=== PATIENT | male | born 1940 | race Asian ===

== ENCOUNTER → 2016-11-13 | Outpatient (CLI) | payer MEDICARE, OTHER ==
[2014-09-30 11:05] VITALS: BP 156/72
[~2016-11-13] MED LIST: ALLO100T PO; BYSTOLIC5 MG PO; INSU100V13 SQ
--- NOTE | 2016-11-13 15:44 | RAD ---
INDICATION: Polycystic kidney disease COMPARISON: CT from February 2009 TECHNIQUE: Grayscale and color ultrasound images obtained of the bilateral kidneys and bladder. FINDINGS: Right Kidney: 10.3 cm. No hydronephrosis. Left Kidney: 10.9 cm. No hydronephrosis. The bilateral kidneys have an echogenic appearance with multiple cysts identified. These measure up to about 25 mm on the right with some internal echoes seen within. Multiple left renal cysts seen as well measuring up to about 20 of mm with a septation suspected in one of the larger cysts. These appear increased when compared to 2008. Bladder: Largely decompressed. IMPRESSION: Multiple cysts of the bilateral kidneys with a couple of them demonstrating probable septation. Would obtain a follow-up ultrasound in 12 months to ensure no growth given the presence of septation and some of them have some low-level internal echoes. These internal echoes could be artifactual in nature but a complex component can have this appearance.
== END | disposition home or self-care (01) ==
LOC: US 14:22
PROVIDERS: ATTEND Internal Medicine Nephrology
DX: Q61.3 Polycystic kidney, unspecified (principal)
CPT/HCPCS: 76770

== ENCOUNTER 2016-11-15 13:23 | Inpatient (IN) | payer MEDICARE ==
[~2016-11-15] VITALS: Ht 167.6 cm; Wt 73.0 kg
[2016-11-15] VITALS (10 sets, daily range): BP systolic 119–164; BP diastolic 62–92
--- NOTE | 2016-11-15 13:40 | PHYS DOC ---
Past Medical History Past Medical History: CVA, High Cholesterol, Hypertension, Other Additional Past Medical Histor: TRIPLE A,R SIDED PARESIS,GOUT Past Surgical History: No Surgical History Alcohol Use: None Drug Use: None Adult General Chief Complaint Chief Complaint: ABDOMINAL PAIN HPI HPI Patient is a 75 year old MALE who presents with abdominal pain, nausea and vomiting. Pt's had bloody emesis and also c/o diffuse abdominal pain. History initially limited as pt speaks Iza and no manager pulmonary immediately available. Per EMS, they saw evidence of blood in vomit and pt was hypotensive and bradycardic upon their arrival. IV fluids initiated and pt's HR and BP improved. Pt reports he takes no medications and has no medical problems. Nurse was able to get manager pulmonary on the phone and pt then denied any vomiting/ abd pain. refuted and said he had been vomiting. Review of Systems Review of Systems Unable to obtain with language barrier other than marked in HPI Current Medications Current Medications Current Medications Medications (Trade) Dose Ordered Sig/Ruben Start Time Stop Time Status Last Admin Dose Admin Pantoprazole Sodium (Protonix Vial) 80 mg 1X ONCE 11/15/16 15:30 11/15/16 15:31 DC 11/15/16 15:02 80 MG Pantoprazole Sodium 80 mg/ Sodium Chloride 100 ml @ 10 mls/hr Q10H 11/15/16 16:00 11/15/16 15:02 10 MLS/HR Sodium Chloride 1,000 ml @ 1,000 mls/hr 1X ONCE 11/15/16 14:00 11/15/16 14:59 DC 11/15/16 14:08 1,000 MLS/HR Allergies Allergies Allergies Coded Allergies Type Severity Reaction Last Updated Verified No Known Drug Allergies 09/30/14 No Physical Exam Physical Exam Constitutional: Well developed, well nourished, slightly dishevelled HENT: Normocephalic, atraumatic, dry MMM, dried brown/red around mouth and on toes Eyes: PERRLA, EOMI, conjunctiva normal, no discharge. [] Neck: Normal range of motion, no tenderness, supple, no stridor. [] Cardiovascular:Heart rate regular with regular rhythm, no murmur [] Lungs & Thorax: Bilateral breath sounds clear to auscultation , no wheeze or crackles Abdomen: Bowel sounds normal, soft, no tenderness, no masses, no pulsatile masses. [] Skin: Warm, dry, no erythema, no rash. [] Back: No tenderness, no CVA tenderness. [] Extremities: No tenderness, no cyanosis, no clubbing, ROM intact, no edema. [] Neurologic: Alert but not oriented, normal motor function, normal sensory function, no focal deficits noted. [] Current Patient Data Vital Signs Vital Signs Date Time Temp Pulse Resp B/P (MAP) Pulse Ox O2 Delivery O2 Flow Rate FiO2 11/15/16 15:43 91 138/62 (87) 98 Room Air 11/15/16 13:30 97.7 18 97.7 Lab Values Laboratory Tests Test 11/15/16 14:30 11/15/16 14:55 11/15/16 15:45 POC Hemoglobin 6.8 g/dL (14-18) L POC Hematocrit 20 % (37-52) L POC Sodium 141 mmol/L (135-145) POC Potassium 5.1 mmol/L (3.5-5.0) H POC Chloride 112 mmol/L (98-110) H POC Total CO2 21 mmol/L (23-32) L Anion Gap 14 mmol/L (6-14) 11 (6-14) POC Blood Urea Nitrogen 32 mg/dL (8-26) H POC Creatinine 2.6 mg/dL (0.5-1.4) H Glucose Level 130 mg/dL (70-99) H 117 mg/dL (70-99) H POC Ionized Calcium (Blas) 0.93 mmol/L (1.13-1.32) L White Blood Count 13.7 x10^3/uL (4.0-11.0) H Red Blood Count 2.12 x10^6/uL (4.30-5.70) L Hemoglobin 6.5 g/dL (13.0-17.5) *L Hematocrit 19.9 % (39.0-53.0) *L Mean Corpuscular Volume 94 fL (79-100) Mean Corpuscular Hemoglobin 31 pg (25-35) Mean Corpuscular Hemoglobin Concent 33 g/dL (31-37) Red Cell Distribution Width 15.7 % (11.5-14.5) H Platelet Count 259 x10^3/uL (140-400) Neutrophils (%) (Auto) 83 % (31-73) H Lymphocytes (%) (Auto) 10 % (24-48) L Monocytes (%) (Auto) 7 % (0-9) Eosinophils (%) (Auto) 0 % (0-3) Basophils (%) (Auto) 0 % (0-3) Neutrophils # (Auto) 11.4 x10^3uL (1.8-7.7) H Lymphocytes # (Auto) 1.3 x10^3/uL (1.0-4.8) Monocytes # (Auto) 0.9 x10^3/uL (0.0-1.1) Eosinophils # (Auto) 0.1 x10^3/uL (0.0-0.7) Basophils # (Auto) 0.0 x10^3/uL (0.0-0.2) Prothrombin Time 14.8 SEC (11.7-14.0) H Prothrombin Time INR 1.2 (0.8-1.1) H Sodium Level 145 mmol/L (136-145) Potassium Level 5.2 mmol/L (3.5-5.1) H Chloride Level 111 mmol/L (98-107) H Carbon Dioxide Level 23 mmol/L (21-32) Blood Urea Nitrogen 37 mg/dL (8-26) H Creatinine 2.6 mg/dL (0.7-1.3) H Estimated GFR (Cockcroft-Gault) 24.2 BUN/Creatinine Ratio 14 (6-20) Lactic Acid Level 3.2 mmol/L (0.4-2.0) H Calcium Level 7.8 mg/dL (8.5-10.1) L Total Bilirubin 0.2 mg/dL (0.2-1.0) Aspartate Amino Transferase (AST) 26 U/L (15-37) Alanine Aminotransferase (ALT) 17 U/L (16-63) Alkaline Phosphatase 73 U/L (46-116) Total Protein 5.3 g/dL (6.4-8.2) L Albumin 2.3 g/dL (3.4-5.0) L Albumin/Globulin Ratio 0.8 (1.0-1.7) L Urine Collection Type Void Urine Color Yellow Urine Clarity Clear Urine pH 5.5 Urine Specific [place] 1.015 Urine Protein 100 mg/dL (NEG-TRACE) Urine Glucose (UA) Negative mg/dL (NEG) Urine Ketones (Stick) Negative mg/dL (NEG) Urine Blood Negative (NEG) Urine Nitrite Negative (NEG) Urine Bilirubin Negative (NEG) Urine Urobilinogen Dipstick 0.2 mg/dL (0.2 mg/dL) Urine Leukocyte Esterase Moderate (NEG) Urine RBC Rare /HPF (0-2) Urine WBC 20-40 /HPF (0-4) Urine Squamous Epithelial Cells Mod /LPF Urine Amorphous Sediment Present /HPF Urine Bacteria Mod /HPF (0-FEW) Urine Hyaline Casts Moderate /HPF Urine Mucus Slight /LPF Laboratory Tests 11/15/16 14:55 Laboratory Tests 11/15/16 14:30 11/15/16 14:55 EKG EKG 91 bpm, sinus, R axis, QTC 514, QRS [address] elevation or depression, T waves upright. Interpreted by me Radiology/Procedures Radiology/Procedures [] Course & Med Decision Making Course & Med Decision Making Pertinent Labs and Imaging studies reviewed. (See chart for details) pt given IV fluids, BP remained stable. Hgb low, IV protonix bolus and drip ordered through the pharmacist. I talked with Dr. Delacruz, (GI) who came to see pt. 2 units prbc ordered, pt accepted to ICU under Dr. De Anda. CT head negative. Total critical care time >35 minutes Dragon Disclaimer Dragon Disclaimer This electronic medical record was generated, in whole or in part, using a voice recognition dictation system. Departure Departure Impression: Primary Impression: GI bleed Additional Impressions: Anemia Metabolic encephalopathy Disposition: ADMITTED INPATIENT Condition: CRITICAL Referrals: NO PCP (PCP) Problem Qualifiers YAN RAMIREZ MD Nov 15, 2016 13:40
[2016-11-15] MEDS ORDERED: IV NORMAL SALINE 1000ML BAG 1,000 ML IV ONE (14:00)
--- NOTE | 2016-11-15 14:24 | EKG ---
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
[2016-11-15 14:35] LABS: POTASSIUM ISTAT 5.1 mmol/L (3.5-5.0)
[2016-11-15] MEDS: PANTOPRAZOLE SODIUM IV 80 MG in IV NORMAL SALINE 100ML 100 ML IV SCH ×2 (15:02→19:48)
[2016-11-15 15:28] LABS: BASO % 0 % (0-3); EOS % 0 % (0-3); LYMPH # 1.3 x10^3/uL (1.0-4.8); LYMPH % 10 % (24-48); MEAN CORPUSCULAR HEMOGLOBIN 31 pg (25-35); MEAN CORPUSCULAR HGB CONC 33 g/dL (31-37); MEAN CORPUSCULAR VOLUME 94 fL (79-100); MONO % 7 % (0-9); NEUT % 83 % (31-73); PLATELET COUNT 259 x10^3/uL (140-400); RED BLOOD COUNT 2.12 x10^6/uL (4.30-5.70); RED CELL DISTRIBUTION WIDTH 15.7 % (11.5-14.5); WHITE BLOOD COUNT 13.7 x10^3/uL (4.0-11.0)
[2016-11-15 15:30] LABS: HEMATOCRIT 19.9 % (39.0-53.0); HEMOGLOBIN 6.5 g/dL (13.0-17.5)
[2016-11-15] MEDS ORDERED: PANTOPRAZOLE IV PUSH 40 MG VIAL. IVP ONE (15:30)
[2016-11-15 15:38] LABS: CALCIUM 7.8 mg/dL (8.5-10.1); CREATININE 2.6 mg/dL (0.7-1.3); GFR 24.2; POTASSIUM 5.2 mmol/L (3.5-5.1)
[2016-11-15 15:43] LABS: ALBUMIN 2.3 g/dL (3.4-5.0); ALBUMIN/GLOBULIN RATIO 0.8 (1.0-1.7); TOTAL BILIRUBIN 0.2 mg/dL (0.2-1.0); TOTAL PROTEIN 5.3 g/dL (6.4-8.2)
[2016-11-15 15:47] LABS: INR 1.2 (0.8-1.1); PROTHROMBIN TIME PATIENT 14.8 SEC (11.7-14.0)
[2016-11-15 15:59] LABS: BILIRUBIN,URINE NEGATIVE (NEG); GLUCOSE,URINE NEGATIVE (NEG); NITRITE,URINE NEGATIVE (NEG); PH,URINE 5.5; PROTEIN,URINE 100 mg/dL (NEG-TRACE); UROBILINOGEN,URINE 0.2 mg/dL (0.2 mg/dL)
--- NOTE | 2016-11-15 16:12 | PDOC2 ---
GI CONSULT Reason For Consult: GI Bleed HPI: HPI: 75 y/o male who speaks Iza, case discussed w/ Dr. Pinto in the ER. Arrived w/ family member, count team clerk phone used. Has had some abdominal pain and been vomiting, noted w/ dark crusty material around mouth and a small amount on foot, possibly having dark stools as well. Some hypotension prior to arrival in ED. Unclear PMH, medications used. Found to have Hgb 6.5 w/ normal indices and elevated RDW. (For comparison, Hgb was 11.2 in 2015.) Plt normal, INR 1.2. BUN 37, Cr 2.6. Started on PPI drip w/ transfusion ordered. Currently confused w/o family present. Dr. De Anda attempted use of count team clerk phone; however, the patient is unable to provide meaningful information and thinks the year is 1927. PMH: PMH: per chart - CVA, HLD, HTN, AAA, gout, renal cysts, CKD FH: Family History: No pertinent hx Social History: Smoke: No ALCOHOL: none ROS: Basically unobtainable. Vitals: Vitals: Vital Signs Date Time Temp Pulse Resp B/P (MAP) Pulse Ox O2 Delivery O2 Flow Rate FiO2 11/15/16 13:58 95 116/59 (78) 98 Room Air 11/15/16 13:30 97.7 18 97.7 Labs: Labs: Laboratory Tests Test 11/15/16 14:30 11/15/16 14:55 Bedside Hemoglobin 6.8 g/dL (14-18) Bedside Hematocrit 20 % (37-52) Bedside Sodium 141 mmol/L (135-145) Bedside Potassium 5.1 mmol/L (3.5-5.0) Bedside Chloride 112 mmol/L (98-110) Bedside Total CO2 21 mmol/L (23-32) Anion Gap 14 mmol/L (6-14) 11 (6-14) Bedside Blood Urea Nitrogen 32 mg/dL (8-26) Bedside Creatinine 2.6 mg/dL (0.5-1.4) Glucose Level 130 mg/dL (70-99) 117 mg/dL (70-99) Bedside Ionized Calcium (Blas) 0.93 mmol/L (1.13-1.32) White Blood Count 13.7 x10^3/uL (4.0-11.0) Red Blood Count 2.12 x10^6/uL (4.30-5.70) Hemoglobin 6.5 g/dL (13.0-17.5) Hematocrit 19.9 % (39.0-53.0) Mean Corpuscular Volume 94 fL (79-100) Mean Corpuscular Hemoglobin 31 pg (25-35) Mean Corpuscular Hemoglobin Concent 33 g/dL (31-37) Red Cell Distribution Width 15.7 % (11.5-14.5) Platelet Count 259 x10^3/uL (140-400) Neutrophils (%) (Auto) 83 % (31-73) Lymphocytes (%) (Auto) 10 % (24-48) Monocytes (%) (Auto) 7 % (0-9) Eosinophils (%) (Auto) 0 % (0-3) Basophils (%) (Auto) 0 % (0-3) Neutrophils # (Auto) 11.4 x10^3uL (1.8-7.7) Lymphocytes # (Auto) 1.3 x10^3/uL (1.0-4.8) Monocytes # (Auto) 0.9 x10^3/uL (0.0-1.1) Eosinophils # (Auto) 0.1 x10^3/uL (0.0-0.7) Basophils # (Auto) 0.0 x10^3/uL (0.0-0.2) Prothrombin Time 14.8 SEC (11.7-14.0) Prothromb Time International Ratio 1.2 (0.8-1.1) Sodium Level 145 mmol/L (136-145) Potassium Level 5.2 mmol/L (3.5-5.1) Chloride Level 111 mmol/L (98-107) Carbon Dioxide Level 23 mmol/L (21-32) Blood Urea Nitrogen 37 mg/dL (8-26) Creatinine 2.6 mg/dL (0.7-1.3) Estimated GFR (Cockcroft-Gault) 24.2 BUN/Creatinine Ratio 14 (6-20) Lactic Acid Level 3.2 mmol/L (0.4-2.0) Calcium Level 7.8 mg/dL (8.5-10.1) Total Bilirubin 0.2 mg/dL (0.2-1.0) Aspartate Amino Transf (AST/SGOT) 26 U/L (15-37) Alanine Aminotransferase (ALT/SGPT) 17 U/L (16-63) Alkaline Phosphatase 73 U/L (46-116) Total Protein 5.3 g/dL (6.4-8.2) Albumin 2.3 g/dL (3.4-5.0) Albumin/Globulin Ratio 0.8 (1.0-1.7) Allergies: Coded Allergies: No Known Drug Allergies (Unverified , 09/30/14) Medications: Current Medications Medications (Trade) Dose Ordered Sig/Ruben Route PRN Reason Start Time Stop Time Status Last Admin Dose Admin Sodium Chloride 1,000 ml @ 1,000 mls/hr 1X ONCE IV 11/15/16 14:00 11/15/16 14:59 DC 11/15/16 14:08 Pantoprazole Sodium 80 mg/ Sodium Chloride 100 ml @ 10 mls/hr Q10H IV 11/15/16 16:00 11/15/16 15:02 Pantoprazole Sodium (Protonix Vial) 80 mg 1X ONCE IVP 11/15/16 15:30 11/15/16 15:31 DC 11/15/16 15:02 Imaging: Imaging: - PE: GEN: NAD HEENT: Atraumatic, PERRL LUNGS: clear HEART: RRR ABD: NABS, S/ND/NT EXTREMITY: No edema SKIN: dried/dark material around mouth NEURO/PSYCH: awake/alert A/P: A/P: Abd pain, vomiting -coffee-ground emesis, melena? -doesn't appear too uncomfortable in ER -Hgb 6.5 compared to 11.2 (last lab available for review 2014) -BUN 37 w/ elevated Cr Anemia Confusion -- Difficult history w/ confusion and language barrier. Agree w/ IV PPI and transfusion. Will keep NPO w/ ice chips and tentatively plan for EGD tomorrow afternoon r/o upper GI source; hopefully family will return to provide further information. SUSAN MCNEIL Nov 15, 2016 16:12
--- NOTE | 2016-11-15 16:16 | PDOC1 ---
History and Physical Date of Admission Date of Admission DATE: 11/15/16 TIME: 16:11 Identification/Chief Complaint Chief Complaint vomited blood Problems: Source Source: Caregiver, Chart review, Patient History of Present Illness History of Present Illness Mr. Becerra is a 75 year old admit to ICU with abdominal pain, nausea and vomiting. Pt is Hmong, not able to speak zimbabwean. History by and lang interpreter phone. brought by EMS for vomting blood and abd pain. He is confused when I spoke to him by the blue phone, and he was confused to the date and year, and then denied vomtiing blood. Red blood was reported in prior emesis from EMS transient hypotension on arrival now is improved Past Medical History Cardiovascular: No pertinent hx Hepatobiliary: No pertinent hx Psych: No pertinent hx Family History Family History: Family History Unknown Social History Smoke: No ALCOHOL: none Current Medications Current Medications Current Medications Sodium Chloride 1,000 ml @ 1,000 mls/hr 1X ONCE IV Last administered on 14:08; Start 11/15/16 at 14:00; Stop 11/15/16 at 14:59; Status DC Pantoprazole Sodium 80 mg/ Sodium Chloride 100 ml @ 10 mls/hr Q10H IV Last administered on 11/15/16 15:02; Start 11/15/16 at 16:00 Pantoprazole Sodium (Protonix Vial) 80 mg 1X ONCE IVP Last administered on 15:02; Start 11/15/16 at 15:30; Stop 11/15/16 at 15:31; Status DC Allergies Allergies: Coded Allergies: No Known Drug Allergies (Unverified , 09/30/14) ROS Review of System unable to complete, pt confused, not zimbabwean speaking, appears to have felt well until vomited blood today Physical Exam General: Alert, Cooperative, mild distress, Other (not oriented) HEENT: Atraumatic, PERRLA Lungs: Clear to auscultation Heart: S1S2, RRR Abdomen: Normal bowel sounds, Soft (mild TTP) Rectal Exam: not examined Extremities: No clubbing, No cyanosis, No edema Skin: No breakdown Neuro: Normal speech, Normal tone Psych/Mental Status: Mood NL, Other (confused) Vitals Vitals Vital Signs Date Time Temp Pulse Resp B/P (MAP) Pulse Ox O2 Delivery O2 Flow Rate FiO2 11/15/16 15:43 91 138/62 (87) 98 Room Air 11/15/16 13:30 97.7 18 97.7 Labs Labs Laboratory Tests Test 11/15/16 14:30 11/15/16 14:55 Bedside Hemoglobin 6.8 g/dL (14-18) Bedside Hematocrit 20 % (37-52) Bedside Sodium 141 mmol/L (135-145) Bedside Potassium 5.1 mmol/L (3.5-5.0) Bedside Chloride 112 mmol/L (98-110) Bedside Total CO2 21 mmol/L (23-32) Anion Gap 14 mmol/L (6-14) 11 (6-14) Bedside Blood Urea Nitrogen 32 mg/dL (8-26) Bedside Creatinine 2.6 mg/dL (0.5-1.4) Glucose Level 130 mg/dL (70-99) 117 mg/dL (70-99) Bedside Ionized Calcium (Blas) 0.93 mmol/L (1.13-1.32) White Blood Count 13.7 x10^3/uL (4.0-11.0) Red Blood Count 2.12 x10^6/uL (4.30-5.70) Hemoglobin 6.5 g/dL (13.0-17.5) Hematocrit 19.9 % (39.0-53.0) Mean Corpuscular Volume 94 fL (79-100) Mean Corpuscular Hemoglobin 31 pg (25-35) Mean Corpuscular Hemoglobin Concent 33 g/dL (31-37) Red Cell Distribution Width 15.7 % (11.5-14.5) Platelet Count 259 x10^3/uL (140-400) Neutrophils (%) (Auto) 83 % (31-73) Lymphocytes (%) (Auto) 10 % (24-48) Monocytes (%) (Auto) 7 % (0-9) Eosinophils (%) (Auto) 0 % (0-3) Basophils (%) (Auto) 0 % (0-3) Neutrophils # (Auto) 11.4 x10^3uL (1.8-7.7) Lymphocytes # (Auto) 1.3 x10^3/uL (1.0-4.8) Monocytes # (Auto) 0.9 x10^3/uL (0.0-1.1) Eosinophils # (Auto) 0.1 x10^3/uL (0.0-0.7) Basophils # (Auto) 0.0 x10^3/uL (0.0-0.2) Prothrombin Time 14.8 SEC (11.7-14.0) Prothromb Time International Ratio 1.2 (0.8-1.1) Sodium Level 145 mmol/L (136-145) Potassium Level 5.2 mmol/L (3.5-5.1) Chloride Level 111 mmol/L (98-107) Carbon Dioxide Level 23 mmol/L (21-32) Blood Urea Nitrogen 37 mg/dL (8-26) Creatinine 2.6 mg/dL (0.7-1.3) Estimated GFR (Cockcroft-Gault) 24.2 BUN/Creatinine Ratio 14 (6-20) Lactic Acid Level 3.2 mmol/L (0.4-2.0) Calcium Level 7.8 mg/dL (8.5-10.1) Total Bilirubin 0.2 mg/dL (0.2-1.0) Aspartate Amino Transf (AST/SGOT) 26 U/L (15-37) Alanine Aminotransferase (ALT/SGPT) 17 U/L (16-63) Alkaline Phosphatase 73 U/L (46-116) Total Protein 5.3 g/dL (6.4-8.2) Albumin 2.3 g/dL (3.4-5.0) Albumin/Globulin Ratio 0.8 (1.0-1.7) Laboratory Tests Test 11/15/16 14:30 11/15/16 14:55 Bedside Hemoglobin 6.8 g/dL (14-18) Bedside Hematocrit 20 % (37-52) Bedside Sodium 141 mmol/L (135-145) Bedside Potassium 5.1 mmol/L (3.5-5.0) Bedside Chloride 112 mmol/L (98-110) Bedside Total CO2 21 mmol/L (23-32) Anion Gap 14 mmol/L (6-14) 11 (6-14) Bedside Blood Urea Nitrogen 32 mg/dL (8-26) Bedside Creatinine 2.6 mg/dL (0.5-1.4) Glucose Level 130 mg/dL (70-99) 117 mg/dL (70-99) Bedside Ionized Calcium (Blas) 0.93 mmol/L (1.13-1.32) White Blood Count 13.7 x10^3/uL (4.0-11.0) Red Blood Count 2.12 x10^6/uL (4.30-5.70) Hemoglobin 6.5 g/dL (13.0-17.5) Hematocrit 19.9 % (39.0-53.0) Mean Corpuscular Volume 94 fL (79-100) Mean Corpuscular Hemoglobin 31 pg (25-35) Mean Corpuscular Hemoglobin Concent 33 g/dL (31-37) Red Cell Distribution Width 15.7 % (11.5-14.5) Platelet Count 259 x10^3/uL (140-400) Neutrophils (%) (Auto) 83 % (31-73) Lymphocytes (%) (Auto) 10 % (24-48) Monocytes (%) (Auto) 7 % (0-9) Eosinophils (%) (Auto) 0 % (0-3) Basophils (%) (Auto) 0 % (0-3) Neutrophils # (Auto) 11.4 x10^3uL (1.8-7.7) Lymphocytes # (Auto) 1.3 x10^3/uL (1.0-4.8) Monocytes # (Auto) 0.9 x10^3/uL (0.0-1.1) Eosinophils # (Auto) 0.1 x10^3/uL (0.0-0.7) Basophils # (Auto) 0.0 x10^3/uL (0.0-0.2) Prothrombin Time 14.8 SEC (11.7-14.0) Prothromb Time International Ratio 1.2 (0.8-1.1) Sodium Level 145 mmol/L (136-145) Potassium Level 5.2 mmol/L (3.5-5.1) Chloride Level 111 mmol/L (98-107) Carbon Dioxide Level 23 mmol/L (21-32) Blood Urea Nitrogen 37 mg/dL (8-26) Creatinine 2.6 mg/dL (0.7-1.3) Estimated GFR (Cockcroft-Gault) 24.2 BUN/Creatinine Ratio 14 (6-20) Lactic Acid Level 3.2 mmol/L (0.4-2.0) Calcium Level 7.8 mg/dL (8.5-10.1) Total Bilirubin 0.2 mg/dL (0.2-1.0) Aspartate Amino Transf (AST/SGOT) 26 U/L (15-37) Alanine Aminotransferase (ALT/SGPT) 17 U/L (16-63) Alkaline Phosphatase 73 U/L (46-116) Total Protein 5.3 g/dL (6.4-8.2) Albumin 2.3 g/dL (3.4-5.0) Albumin/Globulin Ratio 0.8 (1.0-1.7) VTE Prophylaxis Ordered VTE Prophylaxis Devices: Yes VTE Pharmacological Prophylaxi: Contraindicated Assessment/Plan Assessment/Plan Hemetemesis acute blood loss anemia, GI bleed, Upper IV PPI, consult GI admi tto ICU 2 u PRBC now, then recheck encephalopathy, NOS, check CT head, consider metabolic, acute renal failure, Cr from 1.3 to 2.6 will check UA, give IV fluid, consult renal admit to ICU, < 30 min TERESA NAVARRO MD Nov 15, 2016 16:16
[2016-11-15 16:21] LABS: BACTERIA,URINE MOD /HPF (0-FEW); RBC,URINE RARE /HPF (0-2); SQUAMOUS EPITHELIAL CELL,UR MOD /LPF; WBC,URINE 20-40 /HPF (0-4)
--- NOTE | 2016-11-15 16:40 | RAD ---
EXAM: CT head without contrast. HISTORY: Altered mental status. TECHNIQUE: Computed tomography of the head was performed without intravenous contrast. COMPARISON: None. FINDINGS: There is no intracranial hemorrhage. Hypoattenuation within the periventricular white matter indicates moderate to severe chronic small vessel ischemic change. Prominence of the lateral ventricles and hemispheric sulci indicate moderate atrophy. The visualized paranasal sinuses appear clear. The orbits are unremarkable. The temporal bones are unremarkable. The calvarium reveals no suspicious lesions. There are atherosclerotic calcifications of the internal carotid and vertebral arteries. IMPRESSION: 1. No acute intracranial findings. 2. Moderate atrophy and moderate to severe chronic small vessel ischemic white matter change. *One or more of the following individualized dose reduction techniques were utilized for this examination: 1. Automated exposure control. 2. Adjustment of the mA and/or kV according to patient size. 3. Use of iterative reconstruction technique.
[2016-11-15] MEDS: IV NORMAL SALINE 1000ML BAG 1,000 ML IV SCH (17:45)
[2016-11-15] MEDS ORDERED: INSU100V13 SQ (19:22)
[2016-11-15] MEDS ORDERED: BYSTOLIC5 MG PO (19:22)
[2016-11-15] MEDS ORDERED: ALLO100T PO (19:22)
[2016-11-16] VITALS (23 sets, daily range): BP systolic 121–198; BP diastolic 57–98
--- NOTE | 2016-11-16 02:05 | ACF ---
Admission Forms Criteria GASTROINTESTINAL BLEEDING Clinical Indications for Inpatient Care (Place 'X' for any and all applicable criteria): Ongoing inpatient care may be indicated for gastrointestinal bleeding with ANY ONE of the following (4)(20)(21)(22)(23)(24): [X]I. Active bleeding (eg, fresh voluminous blood in emesis or nasogastric aspirate, or per rectum) [ ]II. Hemodynamic instability [ ]III. Anticoagulation therapy or coagulopathy ((eg, advanced liver disease, irreversible anticoagulation) [ ]IV. Ischemic colitis (22) [ ]V. Endoscopy showing arterial bleeding, adherent clot, nonbleeding visible vessel, varices, flat red spots, ulcer size greater than 2 cm, or portal hypertensive gastropathy [ ]. High-risk low platelet count [ ]VII. Anemia requiring inpatient care as indicated by ANY ONE of the following a)[ ] Cognitive impairment b)[ ] Syncope c)[ ] Heart failure d)[ ] Chest pain e)[ ] Dyspnea f)[ ] Other findings suggesting inadequate perfusion (eg, peripheral or myocardial ischemia, end organ dysfunction) [ ]VIII. High-risk low platelet count [ ]IX. Suspected variceal cause of bleeding as indicated by ANY ONE of the following(27)(28): a)[ ] Known varices b)[ ] Hepatomegaly or splenomegaly c)[ ] Ascites d)[ ] Jaundice or scleral icterus e)[ ] History of liver disease (eg, cirrhosis) f)[ ] Physical findings of portal hypertension (eg, caput medusa) g)[ ] Comorbid disorder indicating risk for portal vein thrombosis (eg , abdominal surgery, sepsis, shock, exchange transfusion, prior umbilical vein catheterization) Extended stay may be needed until ALL of the following are present(20)(38)(47): [ ]a) Hemodynamic stability [ ]b) No evidence of active bleeding (eg, stable Hematocrit) [ ]c) Platelet count, prothrombin time, and partial thromboplastin time acceptable for next level of care [ ]d) Surgical or other acute intervention not needed [ ]e) Oral hydration and diet tolerated The original [employer] content created by Valentian Espinoza has been revised. The portions of the content which have been revised are identified through the use of italic text or in bold, and Valentina Espinoza has neither reviewed nor approved the modified material. All other unmodified content is copyright [facility]. Please see references footnoted in the original [facility] edition 2016 Admission Criteria Met?: Yes MOISÉS ESPINOZA Nov 16, 2016 02:05
[2016-11-16 05:11] LABS: BASO % 1 % (0-3); EOS % 2 % (0-3); HEMATOCRIT 24.4 % (39.0-53.0); HEMOGLOBIN 8.2 g/dL (13.0-17.5); LYMPH # 1.9 x10^3/uL (1.0-4.8); LYMPH % 20 % (24-48); MEAN CORPUSCULAR HEMOGLOBIN 30 pg (25-35); MEAN CORPUSCULAR HGB CONC 34 g/dL (31-37); MEAN CORPUSCULAR VOLUME 90 fL (79-100); MONO % 9 % (0-9); NEUT % 69 % (31-73); PLATELET COUNT 189 x10^3/uL (140-400); RED BLOOD COUNT 2.72 x10^6/uL (4.30-5.70); RED CELL DISTRIBUTION WIDTH 15.3 % (11.5-14.5); WHITE BLOOD COUNT 9.5 x10^3/uL (4.0-11.0)
[2016-11-16] MEDS: PANTOPRAZOLE SODIUM IV 80 MG in IV NORMAL SALINE 100ML 100 ML IV SCH (05:20)
[2016-11-16 05:45] LABS: CALCIUM 7.7 mg/dL (8.5-10.1); CREATININE 2.6 mg/dL (0.7-1.3); GFR 24.2
[2016-11-16 05:47] LABS: POTASSIUM 5.5 mmol/L (3.5-5.1)
--- NOTE | 2016-11-16 09:29 | PDOC ---
PROGRESS NOTES Chief Complaint Chief Complaint Chief complaint: Upper GI bleeding Assessment and plan Upper GI bleeding: On IV Protonix, status post 2 units of PRBC hemoglobin improved, gastroenterology consulted planning for EGD today, monitor hemoglobin closely Acute kidney injury with chronic kidney disease: Continue mild IV hydration, monitor BP and and creatinine and urine output Encephalopathy acute: CT head negative, improving. Acute blood loss anemia due to upper GI bleeding Hyperkalemia: Order calcium gluconate monitor History of Present Illness History of Present Illness NO BLEEDING TODAY NO FEVER NO CHEST PAIN AT BEDSIDE Vitals Vitals Vital Signs Date Time Temp Pulse Resp B/P (MAP) Pulse Ox O2 Delivery O2 Flow Rate FiO2 11/16/16 07:00 60 16 158/69 (98) 98 Room Air 11/16/16 04:00 99.5 99.5 Physical Exam General: Alert, Oriented X3, Cooperative, mild distress, Other (not oriented) Heart: Normal S1, Normal S2 Lungs: Clear Abdomen: Normal bowel sounds, Soft (mild TTP) Extremities: No clubbing, No cyanosis, No edema Skin: No breakdown Labs LABS Laboratory Tests Test 11/15/16 14:30 11/15/16 14:55 11/15/16 15:45 11/15/16 21:07 Bedside Hemoglobin 6.8 g/dL (14-18) Bedside Hematocrit 20 % (37-52) Bedside Sodium 141 mmol/L (135-145) Bedside Potassium 5.1 mmol/L (3.5-5.0) Bedside Chloride 112 mmol/L (98-110) Bedside Total CO2 21 mmol/L (23-32) Anion Gap 14 mmol/L (6-14) 11 (6-14) Bedside Blood Urea Nitrogen 32 mg/dL (8-26) Bedside Creatinine 2.6 mg/dL (0.5-1.4) Glucose Level 130 mg/dL (70-99) 117 mg/dL (70-99) Bedside Ionized Calcium (Blas) 0.93 mmol/L (1.13-1.32) White Blood Count 13.7 x10^3/uL (4.0-11.0) Red Blood Count 2.12 x10^6/uL (4.30-5.70) Hemoglobin 6.5 g/dL (13.0-17.5) Hematocrit 19.9 % (39.0-53.0) Mean Corpuscular Volume 94 fL (79-100) Mean Corpuscular Hemoglobin 31 pg (25-35) Mean Corpuscular Hemoglobin Concent 33 g/dL (31-37) Red Cell Distribution Width 15.7 % (11.5-14.5) Platelet Count 259 x10^3/uL (140-400) Neutrophils (%) (Auto) 83 % (31-73) Lymphocytes (%) (Auto) 10 % (24-48) Monocytes (%) (Auto) 7 % (0-9) Eosinophils (%) (Auto) 0 % (0-3) Basophils (%) (Auto) 0 % (0-3) Neutrophils # (Auto) 11.4 x10^3uL (1.8-7.7) Lymphocytes # (Auto) 1.3 x10^3/uL (1.0-4.8) Monocytes # (Auto) 0.9 x10^3/uL (0.0-1.1) Eosinophils # (Auto) 0.1 x10^3/uL (0.0-0.7) Basophils # (Auto) 0.0 x10^3/uL (0.0-0.2) Prothrombin Time 14.8 SEC (11.7-14.0) Prothromb Time International Ratio 1.2 (0.8-1.1) Sodium Level 145 mmol/L (136-145) Potassium Level 5.2 mmol/L (3.5-5.1) Chloride Level 111 mmol/L (98-107) Carbon Dioxide Level 23 mmol/L (21-32) Blood Urea Nitrogen 37 mg/dL (8-26) Creatinine 2.6 mg/dL (0.7-1.3) Estimated GFR (Cockcroft-Gault) 24.2 BUN/Creatinine Ratio 14 (6-20) Lactic Acid Level 3.2 mmol/L (0.4-2.0) Calcium Level 7.8 mg/dL (8.5-10.1) Total Bilirubin 0.2 mg/dL (0.2-1.0) Aspartate Amino Transf (AST/SGOT) 26 U/L (15-37) Alanine Aminotransferase (ALT/SGPT) 17 U/L (16-63) Alkaline Phosphatase 73 U/L (46-116) Total Protein 5.3 g/dL (6.4-8.2) Albumin 2.3 g/dL (3.4-5.0) Albumin/Globulin Ratio 0.8 (1.0-1.7) Urine Collection Type Void Urine Color Yellow Urine Clarity Clear Urine pH 5.5 Urine Specific Temple 1.015 Urine Protein 100 mg/dL (NEG-TRACE) Urine Glucose (UA) Negative mg/dL (NEG) Urine Ketones (Stick) Negative mg/dL (NEG) Urine Blood Negative (NEG) Urine Nitrite Negative (NEG) Urine Bilirubin Negative (NEG) Urine Urobilinogen Dipstick 0.2 mg/dL (0.2 mg/dL) Urine Leukocyte Esterase Moderate (NEG) Urine RBC Rare /HPF (0-2) Urine WBC 20-40 /HPF (0-4) Urine Squamous Epithelial Cells Mod /LPF Urine Amorphous Sediment Present /HPF Urine Bacteria Mod /HPF (0-FEW) Urine Hyaline Casts Moderate /HPF Urine Mucus Slight /LPF Glucose (Fingerstick) 114 mg/dL (70-99) Test 11/15/16 21:15 11/16/16 04:40 Lactic Acid Level 1.5 mmol/L (0.4-2.0) White Blood Count 9.5 x10^3/uL (4.0-11.0) Red Blood Count 2.72 x10^6/uL (4.30-5.70) Hemoglobin 8.2 g/dL (13.0-17.5) Hematocrit 24.4 % (39.0-53.0) Mean Corpuscular Volume 90 fL (79-100) Mean Corpuscular Hemoglobin 30 pg (25-35) Mean Corpuscular Hemoglobin Concent 34 g/dL (31-37) Red Cell Distribution Width 15.3 % (11.5-14.5) Platelet Count 189 x10^3/uL (140-400) Neutrophils (%) (Auto) 69 % (31-73) Lymphocytes (%) (Auto) 20 % (24-48) Monocytes (%) (Auto) 9 % (0-9) Eosinophils (%) (Auto) 2 % (0-3) Basophils (%) (Auto) 1 % (0-3) Neutrophils # (Auto) 6.6 x10^3uL (1.8-7.7) Lymphocytes # (Auto) 1.9 x10^3/uL (1.0-4.8) Monocytes # (Auto) 0.8 x10^3/uL (0.0-1.1) Eosinophils # (Auto) 0.2 x10^3/uL (0.0-0.7) Basophils # (Auto) 0.0 x10^3/uL (0.0-0.2) Sodium Level 145 mmol/L (136-145) Potassium Level 5.5 mmol/L (3.5-5.1) Chloride Level 113 mmol/L (98-107) Carbon Dioxide Level 20 mmol/L (21-32) Anion Gap 12 (6-14) Blood Urea Nitrogen 49 mg/dL (8-26) Creatinine 2.6 mg/dL (0.7-1.3) Estimated GFR (Cockcroft-Gault) 24.2 Glucose Level 90 mg/dL (70-99) Calcium Level 7.7 mg/dL (8.5-10.1) Assessment and Plan Assessmemt and Plan Problems Medical Problems: (1) Anemia Status: Acute (2) GI bleed Status: Acute (3) Metabolic encephalopathy Status: Acute Problems: Comment Review of Relevant I have reviewed the following items selin (where applicable) has been applied. Labs Laboratory Tests Test 11/15/16 14:30 11/15/16 14:55 11/15/16 15:45 11/15/16 21:07 Bedside Hemoglobin 6.8 g/dL (14-18) Bedside Hematocrit 20 % (37-52) Bedside Sodium 141 mmol/L (135-145) Bedside Potassium 5.1 mmol/L (3.5-5.0) Bedside Chloride 112 mmol/L (98-110) Bedside Total CO2 21 mmol/L (23-32) Anion Gap 14 mmol/L (6-14) 11 (6-14) Bedside Blood Urea Nitrogen 32 mg/dL (8-26) Bedside Creatinine 2.6 mg/dL (0.5-1.4) Glucose Level 130 mg/dL (70-99) 117 mg/dL (70-99) Bedside Ionized Calcium (Blas) 0.93 mmol/L (1.13-1.32) White Blood Count 13.7 x10^3/uL (4.0-11.0) Red Blood Count 2.12 x10^6/uL (4.30-5.70) Hemoglobin 6.5 g/dL (13.0-17.5) Hematocrit 19.9 % (39.0-53.0) Mean Corpuscular Volume 94 fL (79-100) Mean Corpuscular Hemoglobin 31 pg (25-35) Mean Corpuscular Hemoglobin Concent 33 g/dL (31-37) Red Cell Distribution Width 15.7 % (11.5-14.5) Platelet Count 259 x10^3/uL (140-400) Neutrophils (%) (Auto) 83 % (31-73) Lymphocytes (%) (Auto) 10 % (24-48) Monocytes (%) (Auto) 7 % (0-9) Eosinophils (%) (Auto) 0 % (0-3) Basophils (%) (Auto) 0 % (0-3) Neutrophils # (Auto) 11.4 x10^3uL (1.8-7.7) Lymphocytes # (Auto) 1.3 x10^3/uL (1.0-4.8) Monocytes # (Auto) 0.9 x10^3/uL (0.0-1.1) Eosinophils # (Auto) 0.1 x10^3/uL (0.0-0.7) Basophils # (Auto) 0.0 x10^3/uL (0.0-0.2) Prothrombin Time 14.8 SEC (11.7-14.0) Prothromb Time International Ratio 1.2 (0.8-1.1) Sodium Level 145 mmol/L (136-145) Potassium Level 5.2 mmol/L (3.5-5.1) Chloride Level 111 mmol/L (98-107) Carbon Dioxide Level 23 mmol/L (21-32) Blood Urea Nitrogen 37 mg/dL (8-26) Creatinine 2.6 mg/dL (0.7-1.3) Estimated GFR (Cockcroft-Gault) 24.2 BUN/Creatinine Ratio 14 (6-20) Lactic Acid Level 3.2 mmol/L (0.4-2.0) Calcium Level 7.8 mg/dL (8.5-10.1) Total Bilirubin 0.2 mg/dL (0.2-1.0) Aspartate Amino Transf (AST/SGOT) 26 U/L (15-37) Alanine Aminotransferase (ALT/SGPT) 17 U/L (16-63) Alkaline Phosphatase 73 U/L (46-116) Total Protein 5.3 g/dL (6.4-8.2) Albumin 2.3 g/dL (3.4-5.0) Albumin/Globulin Ratio 0.8 (1.0-1.7) Urine Collection Type Void Urine Color Yellow Urine Clarity Clear Urine pH 5.5 Urine Specific Temple 1.015 Urine Protein 100 mg/dL (NEG-TRACE) Urine Glucose (UA) Negative mg/dL (NEG) Urine Ketones (Stick) Negative mg/dL (NEG) Urine Blood Negative (NEG) Urine Nitrite Negative (NEG) Urine Bilirubin Negative (NEG) Urine Urobilinogen Dipstick 0.2 mg/dL (0.2 mg/dL) Urine Leukocyte Esterase Moderate (NEG) Urine RBC Rare /HPF (0-2) Urine WBC 20-40 /HPF (0-4) Urine Squamous Epithelial Cells Mod /LPF Urine Amorphous Sediment Present /HPF Urine Bacteria Mod /HPF (0-FEW) Urine Hyaline Casts Moderate /HPF Urine Mucus Slight /LPF Glucose (Fingerstick) 114 mg/dL (70-99) Test 11/15/16 21:15 11/16/16 04:40 Lactic Acid Level 1.5 mmol/L (0.4-2.0) White Blood Count 9.5 x10^3/uL (4.0-11.0) Red Blood Count 2.72 x10^6/uL (4.30-5.70) Hemoglobin 8.2 g/dL (13.0-17.5) Hematocrit 24.4 % (39.0-53.0) Mean Corpuscular Volume 90 fL (79-100) Mean Corpuscular Hemoglobin 30 pg (25-35) Mean Corpuscular Hemoglobin Concent 34 g/dL (31-37) Red Cell Distribution Width 15.3 % (11.5-14.5) Platelet Count 189 x10^3/uL (140-400) Neutrophils (%) (Auto) 69 % (31-73) Lymphocytes (%) (Auto) 20 % (24-48) Monocytes (%) (Auto) 9 % (0-9) Eosinophils (%) (Auto) 2 % (0-3) Basophils (%) (Auto) 1 % (0-3) Neutrophils # (Auto) 6.6 x10^3uL (1.8-7.7) Lymphocytes # (Auto) 1.9 x10^3/uL (1.0-4.8) Monocytes # (Auto) 0.8 x10^3/uL (0.0-1.1) Eosinophils # (Auto) 0.2 x10^3/uL (0.0-0.7) Basophils # (Auto) 0.0 x10^3/uL (0.0-0.2) Sodium Level 145 mmol/L (136-145) Potassium Level 5.5 mmol/L (3.5-5.1) Chloride Level 113 mmol/L (98-107) Carbon Dioxide Level 20 mmol/L (21-32) Anion Gap 12 (6-14) Blood Urea Nitrogen 49 mg/dL (8-26) Creatinine 2.6 mg/dL (0.7-1.3) Estimated GFR (Cockcroft-Gault) 24.2 Glucose Level 90 mg/dL (70-99) Calcium Level 7.7 mg/dL (8.5-10.1) Laboratory Tests Test 11/15/16 14:30 11/15/16 14:55 11/15/16 15:45 11/15/16 21:07 Bedside Hemoglobin 6.8 g/dL (14-18) Bedside Hematocrit 20 % (37-52) Bedside Sodium 141 mmol/L (135-145) Bedside Potassium 5.1 mmol/L (3.5-5.0) Bedside Chloride 112 mmol/L (98-110) Bedside Total CO2 21 mmol/L (23-32) Anion Gap 14 mmol/L (6-14) 11 (6-14) Bedside Blood Urea Nitrogen 32 mg/dL (8-26) Bedside Creatinine 2.6 mg/dL (0.5-1.4) Glucose Level 130 mg/dL (70-99) 117 mg/dL (70-99) Bedside Ionized Calcium (Blas) 0.93 mmol/L (1.13-1.32) White Blood Count 13.7 x10^3/uL (4.0-11.0) Red Blood Count 2.12 x10^6/uL (4.30-5.70) Hemoglobin 6.5 g/dL (13.0-17.5) Hematocrit 19.9 % (39.0-53.0) Mean Corpuscular Volume 94 fL (79-100) Mean Corpuscular Hemoglobin 31 pg (25-35) Mean Corpuscular Hemoglobin Concent 33 g/dL (31-37) Red Cell Distribution Width 15.7 % (11.5-14.5) Platelet Count 259 x10^3/uL (140-400) Neutrophils (%) (Auto) 83 % (31-73) Lymphocytes (%) (Auto) 10 % (24-48) Monocytes (%) (Auto) 7 % (0-9) Eosinophils (%) (Auto) 0 % (0-3) Basophils (%) (Auto) 0 % (0-3) Neutrophils # (Auto) 11.4 x10^3uL (1.8-7.7) Lymphocytes # (Auto) 1.3 x10^3/uL (1.0-4.8) Monocytes # (Auto) 0.9 x10^3/uL (0.0-1.1) Eosinophils # (Auto) 0.1 x10^3/uL (0.0-0.7) Basophils # (Auto) 0.0 x10^3/uL (0.0-0.2) Prothrombin Time 14.8 SEC (11.7-14.0) Prothromb Time International Ratio 1.2 (0.8-1.1) Sodium Level 145 mmol/L (136-145) Potassium Level 5.2 mmol/L (3.5-5.1) Chloride Level 111 mmol/L (98-107) Carbon Dioxide Level 23 mmol/L (21-32) Blood Urea Nitrogen 37 mg/dL (8-26) Creatinine 2.6 mg/dL (0.7-1.3) Estimated GFR (Cockcroft-Gault) 24.2 BUN/Creatinine Ratio 14 (6-20) Lactic Acid Level 3.2 mmol/L (0.4-2.0) Calcium Level 7.8 mg/dL (8.5-10.1) Total Bilirubin 0.2 mg/dL (0.2-1.0) Aspartate Amino Transf (AST/SGOT) 26 U/L (15-37) Alanine Aminotransferase (ALT/SGPT) 17 U/L (16-63) Alkaline Phosphatase 73 U/L (46-116) Total Protein 5.3 g/dL (6.4-8.2) Albumin 2.3 g/dL (3.4-5.0) Albumin/Globulin Ratio 0.8 (1.0-1.7) Urine Collection Type Void Urine Color Yellow Urine Clarity Clear Urine pH 5.5 Urine Specific Temple 1.015 Urine Protein 100 mg/dL (NEG-TRACE) Urine Glucose (UA) Negative mg/dL (NEG) Urine Ketones (Stick) Negative mg/dL (NEG) Urine Blood Negative (NEG) Urine Nitrite Negative (NEG) Urine Bilirubin Negative (NEG) Urine Urobilinogen Dipstick 0.2 mg/dL (0.2 mg/dL) Urine Leukocyte Esterase Moderate (NEG) Urine RBC Rare /HPF (0-2) Urine WBC 20-40 /HPF (0-4) Urine Squamous Epithelial Cells Mod /LPF Urine Amorphous Sediment Present /HPF Urine Bacteria Mod /HPF (0-FEW) Urine Hyaline Casts Moderate /HPF Urine Mucus Slight /LPF Glucose (Fingerstick) 114 mg/dL (70-99) Test 11/15/16 21:15 11/16/16 04:40 Lactic Acid Level 1.5 mmol/L (0.4-2.0) White Blood Count 9.5 x10^3/uL (4.0-11.0) Red Blood Count 2.72 x10^6/uL (4.30-5.70) Hemoglobin 8.2 g/dL (13.0-17.5) Hematocrit 24.4 % (39.0-53.0) Mean Corpuscular Volume 90 fL (79-100) Mean Corpuscular Hemoglobin 30 pg (25-35) Mean Corpuscular Hemoglobin Concent 34 g/dL (31-37) Red Cell Distribution Width 15.3 % (11.5-14.5) Platelet Count 189 x10^3/uL (140-400) Neutrophils (%) (Auto) 69 % (31-73) Lymphocytes (%) (Auto) 20 % (24-48) Monocytes (%) (Auto) 9 % (0-9) Eosinophils (%) (Auto) 2 % (0-3) Basophils (%) (Auto) 1 % (0-3) Neutrophils # (Auto) 6.6 x10^3uL (1.8-7.7) Lymphocytes # (Auto) 1.9 x10^3/uL (1.0-4.8) Monocytes # (Auto) 0.8 x10^3/uL (0.0-1.1) Eosinophils # (Auto) 0.2 x10^3/uL (0.0-0.7) Basophils # (Auto) 0.0 x10^3/uL (0.0-0.2) Sodium Level 145 mmol/L (136-145) Potassium Level 5.5 mmol/L (3.5-5.1) Chloride Level 113 mmol/L (98-107) Carbon Dioxide Level 20 mmol/L (21-32) Anion Gap 12 (6-14) Blood Urea Nitrogen 49 mg/dL (8-26) Creatinine 2.6 mg/dL (0.7-1.3) Estimated GFR (Cockcroft-Gault) 24.2 Glucose Level 90 mg/dL (70-99) Calcium Level 7.7 mg/dL (8.5-10.1) Medications Current Medications Sodium Chloride 1,000 ml @ 1,000 mls/hr 1X ONCE IV Last administered on 14:08; Start 11/15/16 at 14:00; Stop 11/15/16 at 14:59; Status DC Pantoprazole Sodium 80 mg/ Sodium Chloride 100 ml @ 10 mls/hr Q10H IV Last administered on 11/16/16 05:20; Start 11/15/16 at 16:00 Pantoprazole Sodium (Protonix Vial) 80 mg 1X ONCE IVP Last administered on 15:02; Start 11/15/16 at 15:30; Stop 11/15/16 at 15:31; Status DC Sodium Chloride 1,000 ml @ 100 mls/hr Q10H IV Last administered on 11/15/16 17:45; Start 11/15/16 at 16:15 Ceftriaxone Sodium 1 gm/ Sodium Chloride 50 ml @ 100 mls/hr Q24H IV Last administered on 11/15/16 22:16; Start 11/15/16 at 21:00 Active Scripts Active Reported Levemir (Insulin Detemir) 100 Unit/1 Ml Vial 10 Unit SQ QHS Allopurinol 100 Mg Tablet 100 Mg PO DAILY Bystolic (Nebivolol) 5 Mg Tablet 5 Mg PO BID Vitals/I & O Vital Sign - Last 24 Hours 11/15/16 11/15/16 11/15/16 11/15/16 13:30 13:58 15:28 15:43 Temp 97.7 97.7 Pulse 88 95 89 91 Resp 18 B/P (MAP) 113/65 (81) 116/59 (78) 131/79 (96) 138/62 (87) Pulse Ox 100 98 98 98 O2 Delivery Room Air Room Air Room Air Room Air 11/15/16 11/15/16 11/15/16 11/15/16 16:13 16:43 17:00 17:00 Temp 97.8 97.8 Pulse 93 91 83 Resp 16 B/P (MAP) 126/57 (80) 120/60 (80) 119/62 (81) Pulse Ox 98 97 99 O2 Delivery Room Air Room Air Room Air Room Air 11/15/16 11/15/16 11/15/16 11/15/16 17:45 18:00 18:00 19:00 Temp 97.8 98.2 98.2 98.5 97.8 98.2 98.2 98.5 Pulse 86 84 82 80 Resp 26 26 26 22 B/P (MAP) 132/92 129/87 132/92 (105) 137/66 (89) Pulse Ox 97 99 O2 Delivery Room Air Room Air 11/15/16 11/15/16 11/15/16 11/15/16 19:40 20:00 20:00 20:00 Temp 98.7 99.1 99.1 98.7 99.1 99.1 Pulse 77 74 78 Resp 24 20 20 B/P (MAP) 141/70 164/67 (99) 164/67 Pulse Ox 99 O2 Delivery Room Air Room Air 11/15/16 11/15/16 11/15/16 11/15/16 21:00 22:00 23:00 23:59 Temp 99.9 99.6 99.9 99.9 99.6 99.9 Pulse 74 73 71 Resp 18 22 20 B/P (MAP) 137/64 (88) 158/69 (98) 151/74 (99) Pulse Ox 99 99 99 O2 Delivery Room Air Room Air Room Air Room Air 11/15/16 11/16/16 11/16/1621/17 23:59 01:00 02:00 03:00 Pulse 71 74 69 70 Resp 18 18 18 20 B/P (MAP) 154/68 (96) 173/73 (106) 141/71 (94) 154/57 (89) Pulse Ox 98 97 97 98 O2 Delivery Room Air Room Air Room Air Room Air 11/16/16 11/16/16 11/16/16 11/16/16 04:00 04:00 05:00 06:00 Temp 99.5 99.5 Pulse 66 60 60 Resp 16 16 16 B/P (MAP) 121/68 (85) 148/68 (94) 139/66 (90) Pulse Ox 97 98 100 O2 Delivery Room Air Room Air Room Air Room Air 11/16/16 07:00 Pulse 60 Resp 16 B/P (MAP) 158/69 (98) Pulse Ox 98 O2 Delivery Room Air Intake and Output 11/15/16 11/15/16 11/16/16 15:00 23:00 07:00 Intake Total 1444 ml 846 ml Output Total 200 ml 100 ml Balance 1244 ml 746 ml MOE VARGAS MD Nov 16, 2016 09:29
[2016-11-16] MEDS ORDERED: CALCIUM GLUCONATE 1,000 MG/10 ML VIAL. IVP ONE (09:30)
--- NOTE | 2016-11-16 10:57 | PDOC2 ---
CONSULT Date of Consult Date of Consult DATE: 11/16/16 TIME: 10:45 Reason for Consult Reason for Consult: ^ed Creat Referring Physician Referring Physician: Dr De Anda Identification/Chief Complaint Chief Complaint Abd Pain Problems: Source Source: Chart review History of Present Illness Reason for Visit: Patient is a 75 year old HMONG MALE who (speaks broken [place] citizen) presented to the ER via EMS with abdominal pain, nausea and vomiting. Pt's had c/o bloody emesis and also c/o diffuse abdominal pain. Per EMS, they saw evidence of blood in vomit and pt was hypotensive and bradycardic upon their arrival. IV fluids initiated and pt's HR and BP improved. Pt reportedly takes no medications and has no known medical problems. Previous Creat was 1.3 in 2015 - no interim labs. renal US ordered. UA is benign - No known Prostate issues, denies dysuria Urgency , Frequency Past Medical History Cardiovascular: No pertinent hx, Other (some heart problems) Hepatobiliary: No pertinent hx Psych: No pertinent hx Family History Family History: Family History Unknown Social History No ALCOHOL: none Lives: with Family Current Problem List Problem List Problems Medical Problems: (1) Anemia Status: Acute (2) GI bleed Status: Acute (3) Metabolic encephalopathy Status: Acute Current Medications Current Medications Current Medications Sodium Chloride 1,000 ml @ 1,000 mls/hr 1X ONCE IV Last administered on 14:08; Start 11/15/16 at 14:00; Stop 11/15/16 at 14:59; Status DC Pantoprazole Sodium 80 mg/ Sodium Chloride 100 ml @ 10 mls/hr Q10H IV Last administered on 11/16/16 05:20; Start 11/15/16 at 16:00 Pantoprazole Sodium (Protonix Vial) 80 mg 1X ONCE IVP Last administered on 15:02; Start 11/15/16 at 15:30; Stop 11/15/16 at 15:31; Status DC Sodium Chloride 1,000 ml @ 100 mls/hr Q10H IV Last administered on 11/15/16 17:45; Start 11/15/16 at 16:15 Ceftriaxone Sodium 1 gm/ Sodium Chloride 50 ml @ 100 mls/hr Q24H IV Last administered on 11/15/16 22:16; Start 11/15/16 at 21:00 Calcium Gluconate (Calcium Gluconate) 1,000 mg 1X ONCE IVP ; Start 11/16/16 at 09:30; Stop 11/16/16 at 09:36; Status DC Active Scripts Active Reported Levemir (Insulin Detemir) 100 Unit/1 Ml Vial 10 Unit SQ QHS Allopurinol 100 Mg Tablet 100 Mg PO DAILY Bystolic (Nebivolol) 5 Mg Tablet 5 Mg PO BID Allergies Allergies: Coded Allergies: No Known Drug Allergies (Unverified , 09/30/14) ROS Review of System GEN: + Fevers (as doucmented - lo grade) no Chills EYES: no new Visual Complaints ENT: no EN Drainage no Hearing deficiets CVS: n Orthopnea no CP RESP: no SOB no STEVENS GI: + Nausea + Vomiting : no Dysuria no Urgency HEME: no easy bruising no Palp Ly Nodes NEURO no Focal Weakness no Sz PSYCH: no Suicidal Ideation no Depression SKIN: no Rashes ENDO: no Polyuria or Polydipsia no Hot/Cold Intolerance MU SK: no Arthraigia no Myalgia Physical Exam Physical Exam General Appearance: Awake Alert Oriented x 2 In no Distress Eyes: VIsion Unchanged Conjunctiva Normal EN: No EN Drainage Mucous Memb. moist - + Halitosis Neck: no JVD no JVP Supple no Thyromegaly CVS: S1 S2 ? Murmur No Gallop No Rub no Edema Resp: no Rales no Rhonchi no Acc. Muscle use GI: BAS +ve NO Bruit Non Tender Non Distended : no CVA tenderness; no Suprapubic Tenderness SKIN: no Rashes Breast Exam deferred Mu.Sk: Adequate ROM no Muscle Atrophy Heme: Unable to palpate Obvious LAD no Splenomegaly NEURO: Good Strength and Tone Cranial Nerves II - XII grossly intact Psych: ? Depressed no Active hallucination Vital Signs Vital Signs Date Time Temp Pulse Resp B/P (MAP) Pulse Ox O2 Delivery O2 Flow Rate FiO2 11/16/16 10:00 60 27 149/68 (95) 98 Room Air 11/16/16 04:00 99.5 99.5 Assessment & Plan SHANTANU - Presumably VMN asso with Hypotension OA and GI Bleed. (? Element oaf ATn due to same cannot be ruled out) IVF as ordered. Current FLuid and E-lyte status does not necessitate emergent need for Dialysis. Will re-evaluate for Dialysis in am ^K - presumably due to GI bleed - watch with IVF Protienruia - ? r/o UTI (low grd fevers noted) - suspect due to dehydration Anemia: GI bleed - EGD later today HTN: Current BP meds reviewed. See orders for changes. Discussed Plan of Care and prognosis etc. at length with family. Labs Labs Laboratory Tests Test 11/15/16 14:30 11/15/16 14:55 11/15/16 15:45 11/15/16 21:07 Bedside Hemoglobin 6.8 g/dL (14-18) Bedside Hematocrit 20 % (37-52) Bedside Sodium 141 mmol/L (135-145) Bedside Potassium 5.1 mmol/L (3.5-5.0) Bedside Chloride 112 mmol/L (98-110) Bedside Total CO2 21 mmol/L (23-32) Anion Gap 14 mmol/L (6-14) 11 (6-14) Bedside Blood Urea Nitrogen 32 mg/dL (8-26) Bedside Creatinine 2.6 mg/dL (0.5-1.4) Glucose Level 130 mg/dL (70-99) 117 mg/dL (70-99) Bedside Ionized Calcium (Blas) 0.93 mmol/L (1.13-1.32) White Blood Count 13.7 x10^3/uL (4.0-11.0) Red Blood Count 2.12 x10^6/uL (4.30-5.70) Hemoglobin 6.5 g/dL (13.0-17.5) Hematocrit 19.9 % (39.0-53.0) Mean Corpuscular Volume 94 fL (79-100) Mean Corpuscular Hemoglobin 31 pg (25-35) Mean Corpuscular Hemoglobin Concent 33 g/dL (31-37) Red Cell Distribution Width 15.7 % (11.5-14.5) Platelet Count 259 x10^3/uL (140-400) Neutrophils (%) (Auto) 83 % (31-73) Lymphocytes (%) (Auto) 10 % (24-48) Monocytes (%) (Auto) 7 % (0-9) Eosinophils (%) (Auto) 0 % (0-3) Basophils (%) (Auto) 0 % (0-3) Neutrophils # (Auto) 11.4 x10^3uL (1.8-7.7) Lymphocytes # (Auto) 1.3 x10^3/uL (1.0-4.8) Monocytes # (Auto) 0.9 x10^3/uL (0.0-1.1) Eosinophils # (Auto) 0.1 x10^3/uL (0.0-0.7) Basophils # (Auto) 0.0 x10^3/uL (0.0-0.2) Prothrombin Time 14.8 SEC (11.7-14.0) Prothromb Time International Ratio 1.2 (0.8-1.1) Sodium Level 145 mmol/L (136-145) Potassium Level 5.2 mmol/L (3.5-5.1) Chloride Level 111 mmol/L (98-107) Carbon Dioxide Level 23 mmol/L (21-32) Blood Urea Nitrogen 37 mg/dL (8-26) Creatinine 2.6 mg/dL (0.7-1.3) Estimated GFR (Cockcroft-Gault) 24.2 BUN/Creatinine Ratio 14 (6-20) Lactic Acid Level 3.2 mmol/L (0.4-2.0) Calcium Level 7.8 mg/dL (8.5-10.1) Total Bilirubin 0.2 mg/dL (0.2-1.0) Aspartate Amino Transf (AST/SGOT) 26 U/L (15-37) Alanine Aminotransferase (ALT/SGPT) 17 U/L (16-63) Alkaline Phosphatase 73 U/L (46-116) Total Protein 5.3 g/dL (6.4-8.2) Albumin 2.3 g/dL (3.4-5.0) Albumin/Globulin Ratio 0.8 (1.0-1.7) Urine Collection Type Void Urine Color Yellow Urine Clarity Clear Urine pH 5.5 Urine Specific Mcallister 1.015 Urine Protein 100 mg/dL (NEG-TRACE) Urine Glucose (UA) Negative mg/dL (NEG) Urine Ketones (Stick) Negative mg/dL (NEG) Urine Blood Negative (NEG) Urine Nitrite Negative (NEG) Urine Bilirubin Negative (NEG) Urine Urobilinogen Dipstick 0.2 mg/dL (0.2 mg/dL) Urine Leukocyte Esterase Moderate (NEG) Urine RBC Rare /HPF (0-2) Urine WBC 20-40 /HPF (0-4) Urine Squamous Epithelial Cells Mod /LPF Urine Amorphous Sediment Present /HPF Urine Bacteria Mod /HPF (0-FEW) Urine Hyaline Casts Moderate /HPF Urine Mucus Slight /LPF Glucose (Fingerstick) 114 mg/dL (70-99) Test 11/15/16 21:15 11/16/16 04:40 Lactic Acid Level 1.5 mmol/L (0.4-2.0) White Blood Count 9.5 x10^3/uL (4.0-11.0) Red Blood Count 2.72 x10^6/uL (4.30-5.70) Hemoglobin 8.2 g/dL (13.0-17.5) Hematocrit 24.4 % (39.0-53.0) Mean Corpuscular Volume 90 fL (79-100) Mean Corpuscular Hemoglobin 30 pg (25-35) Mean Corpuscular Hemoglobin Concent 34 g/dL (31-37) Red Cell Distribution Width 15.3 % (11.5-14.5) Platelet Count 189 x10^3/uL (140-400) Neutrophils (%) (Auto) 69 % (31-73) Lymphocytes (%) (Auto) 20 % (24-48) Monocytes (%) (Auto) 9 % (0-9) Eosinophils (%) (Auto) 2 % (0-3) Basophils (%) (Auto) 1 % (0-3) Neutrophils # (Auto) 6.6 x10^3uL (1.8-7.7) Lymphocytes # (Auto) 1.9 x10^3/uL (1.0-4.8) Monocytes # (Auto) 0.8 x10^3/uL (0.0-1.1) Eosinophils # (Auto) 0.2 x10^3/uL (0.0-0.7) Basophils # (Auto) 0.0 x10^3/uL (0.0-0.2) Sodium Level 145 mmol/L (136-145) Potassium Level 5.5 mmol/L (3.5-5.1) Chloride Level 113 mmol/L (98-107) Carbon Dioxide Level 20 mmol/L (21-32) Anion Gap 12 (6-14) Blood Urea Nitrogen 49 mg/dL (8-26) Creatinine 2.6 mg/dL (0.7-1.3) Estimated GFR (Cockcroft-Gault) 24.2 Glucose Level 90 mg/dL (70-99) Calcium Level 7.7 mg/dL (8.5-10.1) Laboratory Tests Test 11/15/16 14:30 11/15/16 14:55 11/15/16 15:45 11/15/16 21:07 Bedside Hemoglobin 6.8 g/dL (14-18) Bedside Hematocrit 20 % (37-52) Bedside Sodium 141 mmol/L (135-145) Bedside Potassium 5.1 mmol/L (3.5-5.0) Bedside Chloride 112 mmol/L (98-110) Bedside Total CO2 21 mmol/L (23-32) Anion Gap 14 mmol/L (6-14) 11 (6-14) Bedside Blood Urea Nitrogen 32 mg/dL (8-26) Bedside Creatinine 2.6 mg/dL (0.5-1.4) Glucose Level 130 mg/dL (70-99) 117 mg/dL (70-99) Bedside Ionized Calcium (Blas) 0.93 mmol/L (1.13-1.32) White Blood Count 13.7 x10^3/uL (4.0-11.0) Red Blood Count 2.12 x10^6/uL (4.30-5.70) Hemoglobin 6.5 g/dL (13.0-17.5) Hematocrit 19.9 % (39.0-53.0) Mean Corpuscular Volume 94 fL (79-100) Mean Corpuscular Hemoglobin 31 pg (25-35) Mean Corpuscular Hemoglobin Concent 33 g/dL (31-37) Red Cell Distribution Width 15.7 % (11.5-14.5) Platelet Count 259 x10^3/uL (140-400) Neutrophils (%) (Auto) 83 % (31-73) Lymphocytes (%) (Auto) 10 % (24-48) Monocytes (%) (Auto) 7 % (0-9) Eosinophils (%) (Auto) 0 % (0-3) Basophils (%) (Auto) 0 % (0-3) Neutrophils # (Auto) 11.4 x10^3uL (1.8-7.7) Lymphocytes # (Auto) 1.3 x10^3/uL (1.0-4.8) Monocytes # (Auto) 0.9 x10^3/uL (0.0-1.1) Eosinophils # (Auto) 0.1 x10^3/uL (0.0-0.7) Basophils # (Auto) 0.0 x10^3/uL (0.0-0.2) Prothrombin Time 14.8 SEC (11.7-14.0) Prothromb Time International Ratio 1.2 (0.8-1.1) Sodium Level 145 mmol/L (136-145) Potassium Level 5.2 mmol/L (3.5-5.1) Chloride Level 111 mmol/L (98-107) Carbon Dioxide Level 23 mmol/L (21-32) Blood Urea Nitrogen 37 mg/dL (8-26) Creatinine 2.6 mg/dL (0.7-1.3) Estimated GFR (Cockcroft-Gault) 24.2 BUN/Creatinine Ratio 14 (6-20) Lactic Acid Level 3.2 mmol/L (0.4-2.0) Calcium Level 7.8 mg/dL (8.5-10.1) Total Bilirubin 0.2 mg/dL (0.2-1.0) Aspartate Amino Transf (AST/SGOT) 26 U/L (15-37) Alanine Aminotransferase (ALT/SGPT) 17 U/L (16-63) Alkaline Phosphatase 73 U/L (46-116) Total Protein 5.3 g/dL (6.4-8.2) Albumin 2.3 g/dL (3.4-5.0) Albumin/Globulin Ratio 0.8 (1.0-1.7) Urine Collection Type Void Urine Color Yellow Urine Clarity Clear Urine pH 5.5 Urine Specific Mcallister 1.015 Urine Protein 100 mg/dL (NEG-TRACE) Urine Glucose (UA) Negative mg/dL (NEG) Urine Ketones (Stick) Negative mg/dL (NEG) Urine Blood Negative (NEG) Urine Nitrite Negative (NEG) Urine Bilirubin Negative (NEG) Urine Urobilinogen Dipstick 0.2 mg/dL (0.2 mg/dL) Urine Leukocyte Esterase Moderate (NEG) Urine RBC Rare /HPF (0-2) Urine WBC 20-40 /HPF (0-4) Urine Squamous Epithelial Cells Mod /LPF Urine Amorphous Sediment Present /HPF Urine Bacteria Mod /HPF (0-FEW) Urine Hyaline Casts Moderate /HPF Urine Mucus Slight /LPF Glucose (Fingerstick) 114 mg/dL (70-99) Test 11/15/16 21:15 11/16/16 04:40 Lactic Acid Level 1.5 mmol/L (0.4-2.0) White Blood Count 9.5 x10^3/uL (4.0-11.0) Red Blood Count 2.72 x10^6/uL (4.30-5.70) Hemoglobin 8.2 g/dL (13.0-17.5) Hematocrit 24.4 % (39.0-53.0) Mean Corpuscular Volume 90 fL (79-100) Mean Corpuscular Hemoglobin 30 pg (25-35) Mean Corpuscular Hemoglobin Concent 34 g/dL (31-37) Red Cell Distribution Width 15.3 % (11.5-14.5) Platelet Count 189 x10^3/uL (140-400) Neutrophils (%) (Auto) 69 % (31-73) Lymphocytes (%) (Auto) 20 % (24-48) Monocytes (%) (Auto) 9 % (0-9) Eosinophils (%) (Auto) 2 % (0-3) Basophils (%) (Auto) 1 % (0-3) Neutrophils # (Auto) 6.6 x10^3uL (1.8-7.7) Lymphocytes # (Auto) 1.9 x10^3/uL (1.0-4.8) Monocytes # (Auto) 0.8 x10^3/uL (0.0-1.1) Eosinophils # (Auto) 0.2 x10^3/uL (0.0-0.7) Basophils # (Auto) 0.0 x10^3/uL (0.0-0.2) Sodium Level 145 mmol/L (136-145) Potassium Level 5.5 mmol/L (3.5-5.1) Chloride Level 113 mmol/L (98-107) Carbon Dioxide Level 20 mmol/L (21-32) Anion Gap 12 (6-14) Blood Urea Nitrogen 49 mg/dL (8-26) Creatinine 2.6 mg/dL (0.7-1.3) Estimated GFR (Cockcroft-Gault) 24.2 Glucose Level 90 mg/dL (70-99) Calcium Level 7.7 mg/dL (8.5-10.1) CATALINA BRAY MD Nov 16, 2016 10:57
[2016-11-16] MEDS ORDERED: MAGNESIUM SULFATE 2GM 50 ML IV PRN (11:00)
[2016-11-16] MEDS ORDERED: LIDOCAINE 2% PF Vial for OR 5 ML VIAL. ONE (13:41)
[2016-11-16] MEDS ORDERED: PROPOFOL 20 ML IV ONE (13:41)
--- NOTE | 2016-11-16 14:11 | PDOC4 ---
PROCEDURE Procedure EGD/biopsies Indication: Hematemesis/anemia Meds: per anesthesia. Findings: E--normal. GEJ at 37cm. G--1.5-2 cm ulcer on greater curve, fundus; malignant? Biopsied. 3-4, 6-8mm ulcers in body, greater curve with some hematin staining, but no high risk features. 3 ulcers, 4-18mm in size in prepyloric area, all with clean bases. Antral biopsies done. D--Normal to second portion. Coco. well. IMP: Multiple gastric ulcers. Fundic ulcer suspicious for malignancy. None show high risk features for rebleeding. REC: OK to try PO. If tolerates, po PPI. Could try clears. Out of ICU OK with me. Await biopsies. Continue supportive care. Thanks. GHADA VIZCARRA MD Nov 16, 2016 14:11
[2016-11-16] MEDS: PANTOPRAZOLE 40 MG TABLET.DR. PO SCH (16:30)
[2016-11-16] MEDS ORDERED: DEXTROSE 50% 25 GM / 50ML DISP.SYRIN. IV PRN (18:45)
[2016-11-16] MEDS ORDERED: CALCIUM GLUCONATE 1,000 MG/10 ML VIAL. ONE (18:53)
[2016-11-16] MEDS: hydrALAZINE 20 MG/ML VIAL. IVP PRN (18:57)
[2016-11-16] MEDS: IV NORMAL SALINE 1000ML BAG 1,000 ML IV SCH ×4 (18:57→22:15)
[2016-11-17] VITALS (19 sets, daily range): BP systolic 94–153; BP diastolic 60–93
[2016-11-17] MEDS: IV NORMAL SALINE 1000ML BAG 1,000 ML IV SCH ×3 (03:00→16:22)
[2016-11-17 06:02] LABS: BASO # 0.1 x10^3/uL (0.0-0.2); BASO % 1 % (0-3); EOS % 4 % (0-3); HEMATOCRIT 22.4 % (39.0-53.0); HEMOGLOBIN 7.5 g/dL (13.0-17.5); LYMPH # 1.2 x10^3/uL (1.0-4.8); LYMPH % 15 % (24-48); MEAN CORPUSCULAR HEMOGLOBIN 30 pg (25-35); MEAN CORPUSCULAR HGB CONC 34 g/dL (31-37); MEAN CORPUSCULAR VOLUME 90 fL (79-100); MONO % 7 % (0-9); NEUT % 73 % (31-73); PLATELET COUNT 177 x10^3/uL (140-400); RED BLOOD COUNT 2.48 x10^6/uL (4.30-5.70); RED CELL DISTRIBUTION WIDTH 15.6 % (11.5-14.5); WHITE BLOOD COUNT 8.1 x10^3/uL (4.0-11.0)
[2016-11-17 06:16] LABS: ALBUMIN 2.2 g/dL (3.4-5.0); ALBUMIN/GLOBULIN RATIO 0.9 (1.0-1.7); CALCIUM 7.7 mg/dL (8.5-10.1); CREATININE 2.3 mg/dL (0.7-1.3); GFR 27.9; PHOSPHORUS 3.3 mg/dL (2.6-4.7); POTASSIUM 4.5 mmol/L (3.5-5.1); TOTAL BILIRUBIN 0.2 mg/dL (0.2-1.0); TOTAL PROTEIN 4.7 g/dL (6.4-8.2)
--- NOTE | 2016-11-17 06:41 | EKG ---
[facility] [address] [place] [address] Test Date: 2016-11-17 Test Time: 06:42:19 Pat Name: MARIEL DOZIER Department: Room: 106 1 Gender: M Cray Fishing Hand: SANDRA : 1940 Requested By: YG SAUCEDA Order Number: [id number] Reading MD: Rommel Jimenez Measurements Intervals [place] Rate: 133 P: RI: QRS: -126 QRSD: 140 T: 13 QT: 336 QTc: 501 Interpretive Statements SUPRAVENTRICULAR TACHYCARDIA WITH ABERRANCY RBBB Electronically Signed On 11-22-2016 14:36:28 CDT by Rommel Jimenez
[2016-11-17] MEDS: PANTOPRAZOLE 40 MG TABLET.DR. PO SCH ×2 (07:10→16:22)
[2016-11-17] MEDS: INSULIN ASPART 300 UNITS/3 ML INSULN.PEN SQ SCH ×3 (07:10→16:22)
[2016-11-17] MEDS ORDERED: MAGNESIUM SULFATE 2GM 50 ML IV ONE (09:00)
[2016-11-17] MEDS ORDERED: MAGNESIUM SULFATE 1GM 100 ML IV ONE (09:00)
--- NOTE | 2016-11-17 09:10 | PDOC ---
G I PROGRESS NOTE Reason for Follow-up UGI bleed/gastric ulcers Subjective Seems to deny any discomfort. Objective No reports of any overt bleeding. Physical Exam Lungs clear. Irregular rhythm. Various rhythms on monitor/LBBB Abdomen soft, not tender nor distended. Review of Relevant I have reviewed the following items selin (where applicable) has been applied. Labs Laboratory Tests Test 11/15/16 14:30 11/15/16 14:55 11/15/16 15:45 11/15/16 21:07 Bedside Hemoglobin 6.8 g/dL (14-18) Bedside Hematocrit 20 % (37-52) Bedside Sodium 141 mmol/L (135-145) Bedside Potassium 5.1 mmol/L (3.5-5.0) Bedside Chloride 112 mmol/L (98-110) Bedside Total CO2 21 mmol/L (23-32) Anion Gap 14 mmol/L (6-14) 11 (6-14) Bedside Blood Urea Nitrogen 32 mg/dL (8-26) Bedside Creatinine 2.6 mg/dL (0.5-1.4) Glucose Level 130 mg/dL (70-99) 117 mg/dL (70-99) Bedside Ionized Calcium (Blas) 0.93 mmol/L (1.13-1.32) White Blood Count 13.7 x10^3/uL (4.0-11.0) Red Blood Count 2.12 x10^6/uL (4.30-5.70) Hemoglobin 6.5 g/dL (13.0-17.5) Hematocrit 19.9 % (39.0-53.0) Mean Corpuscular Volume 94 fL (79-100) Mean Corpuscular Hemoglobin 31 pg (25-35) Mean Corpuscular Hemoglobin Concent 33 g/dL (31-37) Red Cell Distribution Width 15.7 % (11.5-14.5) Platelet Count 259 x10^3/uL (140-400) Neutrophils (%) (Auto) 83 % (31-73) Lymphocytes (%) (Auto) 10 % (24-48) Monocytes (%) (Auto) 7 % (0-9) Eosinophils (%) (Auto) 0 % (0-3) Basophils (%) (Auto) 0 % (0-3) Neutrophils # (Auto) 11.4 x10^3uL (1.8-7.7) Lymphocytes # (Auto) 1.3 x10^3/uL (1.0-4.8) Monocytes # (Auto) 0.9 x10^3/uL (0.0-1.1) Eosinophils # (Auto) 0.1 x10^3/uL (0.0-0.7) Basophils # (Auto) 0.0 x10^3/uL (0.0-0.2) Prothrombin Time 14.8 SEC (11.7-14.0) Prothromb Time International Ratio 1.2 (0.8-1.1) Sodium Level 145 mmol/L (136-145) Potassium Level 5.2 mmol/L (3.5-5.1) Chloride Level 111 mmol/L (98-107) Carbon Dioxide Level 23 mmol/L (21-32) Blood Urea Nitrogen 37 mg/dL (8-26) Creatinine 2.6 mg/dL (0.7-1.3) Estimated GFR (Cockcroft-Gault) 24.2 BUN/Creatinine Ratio 14 (6-20) Lactic Acid Level 3.2 mmol/L (0.4-2.0) Calcium Level 7.8 mg/dL (8.5-10.1) Total Bilirubin 0.2 mg/dL (0.2-1.0) Aspartate Amino Transf (AST/SGOT) 26 U/L (15-37) Alanine Aminotransferase (ALT/SGPT) 17 U/L (16-63) Alkaline Phosphatase 73 U/L (46-116) Total Protein 5.3 g/dL (6.4-8.2) Albumin 2.3 g/dL (3.4-5.0) Albumin/Globulin Ratio 0.8 (1.0-1.7) Urine Collection Type Void Urine Color Yellow Urine Clarity Clear Urine pH 5.5 Urine Specific Belden 1.015 Urine Protein 100 mg/dL (NEG-TRACE) Urine Glucose (UA) Negative mg/dL (NEG) Urine Ketones (Stick) Negative mg/dL (NEG) Urine Blood Negative (NEG) Urine Nitrite Negative (NEG) Urine Bilirubin Negative (NEG) Urine Urobilinogen Dipstick 0.2 mg/dL (0.2 mg/dL) Urine Leukocyte Esterase Moderate (NEG) Urine RBC Rare /HPF (0-2) Urine WBC 20-40 /HPF (0-4) Urine Squamous Epithelial Cells Mod /LPF Urine Amorphous Sediment Present /HPF Urine Bacteria Mod /HPF (0-FEW) Urine Hyaline Casts Moderate /HPF Urine Mucus Slight /LPF Glucose (Fingerstick) 114 mg/dL (70-99) Test 11/15/16 21:15 11/16/16 00:50 11/16/16 04:40 11/17/16 04:30 Lactic Acid Level 1.5 mmol/L (0.4-2.0) Nasal Screen MRSA (PCR) Negative (Negative) White Blood Count 9.5 x10^3/uL (4.0-11.0) 8.1 x10^3/uL (4.0-11.0) Red Blood Count 2.72 x10^6/uL (4.30-5.70) 2.48 x10^6/uL (4.30-5.70) Hemoglobin 8.2 g/dL (13.0-17.5) 7.5 g/dL (13.0-17.5) Hematocrit 24.4 % (39.0-53.0) 22.4 % (39.0-53.0) Mean Corpuscular Volume 90 fL (79-100) 90 fL (79-100) Mean Corpuscular Hemoglobin 30 pg (25-35) 30 pg (25-35) Mean Corpuscular Hemoglobin Concent 34 g/dL (31-37) 34 g/dL (31-37) Red Cell Distribution Width 15.3 % (11.5-14.5) 15.6 % (11.5-14.5) Platelet Count 189 x10^3/uL (140-400) 177 x10^3/uL (140-400) Neutrophils (%) (Auto) 69 % (31-73) 73 % (31-73) Lymphocytes (%) (Auto) 20 % (24-48) 15 % (24-48) Monocytes (%) (Auto) 9 % (0-9) 7 % (0-9) Eosinophils (%) (Auto) 2 % (0-3) 4 % (0-3) Basophils (%) (Auto) 1 % (0-3) 1 % (0-3) Neutrophils # (Auto) 6.6 x10^3uL (1.8-7.7) 5.9 x10^3uL (1.8-7.7) Lymphocytes # (Auto) 1.9 x10^3/uL (1.0-4.8) 1.2 x10^3/uL (1.0-4.8) Monocytes # (Auto) 0.8 x10^3/uL (0.0-1.1) 0.6 x10^3/uL (0.0-1.1) Eosinophils # (Auto) 0.2 x10^3/uL (0.0-0.7) 0.3 x10^3/uL (0.0-0.7) Basophils # (Auto) 0.0 x10^3/uL (0.0-0.2) 0.1 x10^3/uL (0.0-0.2) Sodium Level 145 mmol/L (136-145) 145 mmol/L (136-145) Potassium Level 5.5 mmol/L (3.5-5.1) 4.5 mmol/L (3.5-5.1) Chloride Level 113 mmol/L (98-107) 115 mmol/L (98-107) Carbon Dioxide Level 20 mmol/L (21-32) 19 mmol/L (21-32) Anion Gap 12 (6-14) 11 (6-14) Blood Urea Nitrogen 49 mg/dL (8-26) 39 mg/dL (8-26) Creatinine 2.6 mg/dL (0.7-1.3) 2.3 mg/dL (0.7-1.3) Estimated GFR (Cockcroft-Gault) 24.2 27.9 Glucose Level 90 mg/dL (70-99) 95 mg/dL (70-99) Uric Acid 7.5 mg/dL (3.5-7.2) Calcium Level 7.7 mg/dL (8.5-10.1) 7.7 mg/dL (8.5-10.1) BUN/Creatinine Ratio 17 (6-20) Phosphorus Level 3.3 mg/dL (2.6-4.7) Magnesium Level 1.8 mg/dL (1.8-2.4) Total Bilirubin 0.2 mg/dL (0.2-1.0) Aspartate Amino Transf (AST/SGOT) 17 U/L (15-37) Alanine Aminotransferase (ALT/SGPT) 10 U/L (16-63) Alkaline Phosphatase 59 U/L (46-116) Total Protein 4.7 g/dL (6.4-8.2) Albumin 2.2 g/dL (3.4-5.0) Albumin/Globulin Ratio 0.9 (1.0-1.7) Test 11/17/16 07:09 Glucose (Fingerstick) 92 mg/dL (70-99) Laboratory Tests Test 11/17/16 04:30 11/17/16 07:09 White Blood Count 8.1 x10^3/uL (4.0-11.0) Red Blood Count 2.48 x10^6/uL (4.30-5.70) Hemoglobin 7.5 g/dL (13.0-17.5) Hematocrit 22.4 % (39.0-53.0) Mean Corpuscular Volume 90 fL (79-100) Mean Corpuscular Hemoglobin 30 pg (25-35) Mean Corpuscular Hemoglobin Concent 34 g/dL (31-37) Red Cell Distribution Width 15.6 % (11.5-14.5) Platelet Count 177 x10^3/uL (140-400) Neutrophils (%) (Auto) 73 % (31-73) Lymphocytes (%) (Auto) 15 % (24-48) Monocytes (%) (Auto) 7 % (0-9) Eosinophils (%) (Auto) 4 % (0-3) Basophils (%) (Auto) 1 % (0-3) Neutrophils # (Auto) 5.9 x10^3uL (1.8-7.7) Lymphocytes # (Auto) 1.2 x10^3/uL (1.0-4.8) Monocytes # (Auto) 0.6 x10^3/uL (0.0-1.1) Eosinophils # (Auto) 0.3 x10^3/uL (0.0-0.7) Basophils # (Auto) 0.1 x10^3/uL (0.0-0.2) Sodium Level 145 mmol/L (136-145) Potassium Level 4.5 mmol/L (3.5-5.1) Chloride Level 115 mmol/L (98-107) Carbon Dioxide Level 19 mmol/L (21-32) Anion Gap 11 (6-14) Blood Urea Nitrogen 39 mg/dL (8-26) Creatinine 2.3 mg/dL (0.7-1.3) Estimated GFR (Cockcroft-Gault) 27.9 BUN/Creatinine Ratio 17 (6-20) Glucose Level 95 mg/dL (70-99) Calcium Level 7.7 mg/dL (8.5-10.1) Phosphorus Level 3.3 mg/dL (2.6-4.7) Magnesium Level 1.8 mg/dL (1.8-2.4) Total Bilirubin 0.2 mg/dL (0.2-1.0) Aspartate Amino Transf (AST/SGOT) 17 U/L (15-37) Alanine Aminotransferase (ALT/SGPT) 10 U/L (16-63) Alkaline Phosphatase 59 U/L (46-116) Total Protein 4.7 g/dL (6.4-8.2) Albumin 2.2 g/dL (3.4-5.0) Albumin/Globulin Ratio 0.9 (1.0-1.7) Glucose (Fingerstick) 92 mg/dL (70-99) Microbiology 11/15/16 Urine Culture - Preliminary, Resulted 11/15/16 Urine Culture Result 1 (LATRICIA) - Preliminary, Resulted Hemoglobin down some. BUN falling. Dilutional? Medications Current Medications Sodium Chloride 1,000 ml @ 1,000 mls/hr 1X ONCE IV Last administered on 14:08; Start 11/15/16 at 14:00; Stop 11/15/16 at 14:59; Status DC Pantoprazole Sodium 80 mg/ Sodium Chloride 100 ml @ 10 mls/hr Q10H IV Last administered on 11/16/16 05:20; Start 11/15/16 at 16:00; Stop 11/16/16 at 14:13 ; Status DC Pantoprazole Sodium (Protonix Vial) 80 mg 1X ONCE IVP Last administered on 15:02; Start 11/15/16 at 15:30; Stop 11/15/16 at 15:31; Status DC Sodium Chloride 1,000 ml @ 100 mls/hr Q10H IV Last administered on 11/17/16 07:30; Start 11/15/16 at 16:15 Ceftriaxone Sodium 1 gm/ Sodium Chloride 50 ml @ 100 mls/hr Q24H IV Last administered on 11/16/16 21:26; Start 11/15/16 at 21:00 Calcium Gluconate (Calcium Gluconate) 1,000 mg 1X ONCE IVP Last administered on 11/16/16 19:01; Start 11/16/16 at 09:30; Stop 11/16/16 at 09:36; Status DC Magnesium Sulfate/ Dextrose 50 ml @ 25 mls/hr PRN DAILY PRN IV for Mag < 1.7 on am labs; Start 11/16/16 at 11:00 Sodium Chloride 1,000 ml @ 125 mls/hr Q8H IV Last administered on 11/17/16 03 :00; Start 11/16/16 at 11:00; Stop 11/17/16 at 05:50; Status DC Propofol 20 ml @ As Directed STK-MED ONCE IV ; Start 11/16/16 at 13:41; Stop at 13:54; Status DC Lidocaine HCl (Lidocaine Pf 2% Vial) 5 ml STK-MED ONCE .ROUTE ; Start 11/16/16 at 13:41; Stop 11/16/16 at 13:54; Status DC Pantoprazole Sodium (Protonix) 40 mg BIDAC PO Last administered on 11/17/16 07 :10; Start 11/16/16 at 16:30 Hydralazine HCl (Apresoline) 10 mg PRN Q4HRS PRN IVP ELEVATED BP, SEE COMMENTS Last administered on 11/16/16 18:57; Start 11/16/16 at 18:45 Insulin Aspart (NovoLOG) 0-5 UNITS TIDWMEALS SQ ; Start 11/17/16 at 08:00 Dextrose (Dextrose 50%-Water Syringe) 12.5 gm PRN Q15MIN PRN IV SEE COMMENTS; Start 11/16/16 at 18:45 Calcium Gluconate (Calcium Gluconate) 1,000 mg STK-MED ONCE .ROUTE ; Start 11/16 at 18:53; Stop 11/16/16 at 18:54; Status DC Magnesium Sulfate/ Dextrose 50 ml @ 25 mls/hr 1X ONCE IV ; Start 11/17/16 at 09 :00; Stop 11/17/16 at 09:00; Status DC Magnesium Sulfate/ Dextrose 100 ml @ 100 mls/hr 1X ONCE IV ; Start 11/17/16 at 09:00; Stop 11/17/16 at 09:59 Active Scripts Active Reported Levemir (Insulin Detemir) 100 Unit/1 Ml Vial 10 Unit SQ QHS Allopurinol 100 Mg Tablet 100 Mg PO DAILY Bystolic (Nebivolol) 5 Mg Tablet 5 Mg PO BID Vitals/I & O Vital Sign - Last 24 Hours 11/16/16 11/16/16 11/16/16 11/16/16 10:00 11:00 12:00 12:00 Temp 98.9 98.9 Pulse 60 69 60 Resp 27 22 B/P (MAP) 149/68 (95) 155/71 (99) 166/72 (103) Pulse Ox 98 96 O2 Delivery Room Air Room Air Room Air 11/16/16 11/16/16 11/16/16 11/16/16 13:53 14:07 14:23 14:28 Temp 97.8 98.0 98.0 98.0 97.8 98.0 98.0 98.0 Pulse 63 60 60 60 Resp 18 18 18 18 B/P (MAP) 88/51 99/50 149/69 Pulse Ox 100 100 100 97 O2 Delivery Room Air Room Air Room Air O2 Flow Rate 10 11/16/16 11/16/16 11/16/16 11/16/16 14:45 15:00 15:15 15:30 Pulse 58 58 56 58 Resp 17 17 14 15 B/P (MAP) 162/73 (102) 162/72 (102) 182/70 (107) 176/92 (120) 11/16/16 11/16/16 11/16/16 11/16/16 16:00 16:00 17:00 18:00 Temp 99.0 99.0 Pulse 58 62 89 Resp 19 18 B/P (MAP) 194/98 (130) 170/85 (113) 198/78 (118) O2 Delivery Room Air 11/16/16 11/16/16 11/16/16 11/16/16 18:57 19:00 20:00 20:00 Temp 98.4 98.4 Pulse 89 88 83 Resp 18 18 B/P (MAP) 198/78 165/70 (101) 159/71 (100) Pulse Ox 97 97 O2 Delivery Room Air Room Air Room Air 11/16/16 11/16/16 11/16/16 11/16/16 21:00 22:00 23:00 23:59 Pulse 88 83 80 Resp 18 18 18 B/P (MAP) 152/70 (97) 147/68 (94) 140/60 (86) Pulse Ox 97 96 96 O2 Delivery Room Air Room Air Room Air Room Air 11/17/16 11/17/16 11/17/16 11/17/16 00:00 01:00 02:00 03:00 Temp 99.0 99.0 Pulse 73 73 71 74 Resp 18 18 18 18 B/P (MAP) 126/76 (93) 129/64 (85) 146/60 (88) 147/66 (93) Pulse Ox 96 96 96 96 O2 Delivery Room Air Room Air Room Air Room Air 11/17/16 11/17/16 11/17/16 11/17/16 04:00 04:00 04:00 05:00 Temp 98.7 98.7 Pulse 66 75 77 Resp 18 18 18 B/P (MAP) 140/73 (95) 153/90 (111) 142/82 (102) Pulse Ox 96 96 96 O2 Delivery Room Air Room Air Room Air Room Air 11/17/16 11/17/16 11/17/16 11/17/16 06:00 07:00 07:38 08:00 Temp 99.4 99.4 Pulse 82 124 121 Resp 18 19 18 B/P (MAP) 123/82 (96) 104/60 (75) 94/75 (81) Pulse Ox 96 99 97 O2 Delivery Room Air Room Air Room Air Room Air Intake and Output 11/16/16 11/16/16 11/17/16 15:00 23:00 07:00 Intake Total 70 ml 970 ml 1617 ml Output Total 500 ml 100 ml Balance 70 ml 470 ml 1517 ml Problem List Problems Medical Problems: (1) Anemia Status: Acute (2) GI bleed Status: Acute (3) Metabolic encephalopathy Status: Acute Assessment UGIB from gastric ulcers. Seems stable. Various cardiac rhythms. Plan of Care Note Continue po PPI/monitor/follow hemoglobin. Maybe advance diet in AM. Consider cardiology opinion. Out of ICU? Await path. GHADA VIZCARRA MD Nov 17, 2016 09:10
--- NOTE | 2016-11-17 10:42 | PDOC ---
SUBJECTIVE ROS SHANTANU/ CKD IV doing well, EGD done CVS: no Orthopnea, no CP RESP: no SOB, no STEVENS GI: no Nausea, no Vomiting : no Dysuria, no Urgency OBJECTIVE Vital Signs Vital Signs Date Time Temp Pulse Resp B/P (MAP) Pulse Ox O2 Delivery O2 Flow Rate FiO2 11/17/16 10:00 77 19 125/78 (94) 97 Room Air 11/17/16 07:00 99.4 99.4 11/16/16 14:07 10 I & 0 Intake and Output 11/17/16 07:00 Intake Total 2657 ml Output Total 600 ml Balance 2057 ml Intake Oral 600 ml IV Total 2057 ml Output Urine Total 600 ml PHYSICAL EXAM Physical Exam General Appearance: Awake Alert Oriented x 2 In no Distress Eyes: VIsion Unchanged Conjunctiva Normal EN: No EN Drainage Mucous Memb. moist - + Halitosis Neck: no JVD no JVP Supple no Thyromegaly CVS: S1 S2 ? Murmur No Gallop No Rub no Edema - tachy Resp: no Rales no Rhonchi no Acc. Muscle use GI: BAS +ve NO Bruit Non Tender Non Distended : no CVA tenderness; no Suprapubic Tenderness Assessment & Plan SHANTANU - Presumably VMN asso with Hypotension OA and GI Bleed. A little better with IVF. ct IVF as ordered. Current FLuid and E-lyte status does not necessitate emergent need for Dialysis. Will re-evaluate for Dialysis in am ? Some underlyign CKD III/ IV cannot be ruled out ^K - resolved with IVF met ACidosis - may need to change IVF to bicarb if it keep s dropping Proteinuria - ? r/o UTI (low grd fevers noted) - suspect due to dehydration Anemia: GI bleed - EGD later today HTN: Current BP meds reviewed. defer to cardiology for changes given new onset RVR Discussed Plan of Care and prognosis etc. at length with family. COMMENT/RELEVANT DATA Meds Current Medications Medications (Trade) Dose Ordered Sig/Ruben Start Time Stop Time Status Last Admin Dose Admin Calcium Gluconate (Calcium Gluconate) 1,000 mg STK-MED ONCE 11/16/16 18:53 11/16/16 18:54 DC Ceftriaxone Sodium 1 gm/ Sodium Chloride 50 ml @ 100 mls/hr Q24H 11/15/16 21:00 11/16/16 21:26 100 MLS/HR Dextrose (Dextrose 50%-Water Syringe) 12.5 gm PRN Q15MIN PRN 11/16/16 18:45 Hydralazine HCl (Apresoline) 10 mg PRN Q4HRS PRN 11/16/16 18:45 11/16/16 18:57 10 MG Insulin Aspart (NovoLOG) 0-5 UNITS TIDWMEALS 11/17/16 08:00 Lidocaine HCl (Lidocaine Pf 2% Vial) 5 ml STK-MED ONCE 11/16/16 13:41 11/16/16 13:54 DC Magnesium Sulfate/ Dextrose 100 ml @ 100 mls/hr 1X ONCE 11/17/16 09:00 11/17/16 09:59 DC 11/17/16 09:04 100 MLS/HR Pantoprazole Sodium (Protonix Vial) 80 mg 1X ONCE 11/15/16 15:30 11/15/16 15:31 DC 11/15/16 15:02 80 MG Pantoprazole Sodium (Protonix) 40 mg BIDAC 11/16/16 16:30 11/17/16 07:10 40 MG Pantoprazole Sodium 80 mg/ Sodium Chloride 100 ml @ 10 mls/hr Q10H 11/15/16 16:00 11/16/16 14:13 DC 11/16/16 05:20 10 MLS/HR Propofol 20 ml @ As Directed STK-MED ONCE 11/16/16 13:41 11/16/16 13:54 DC Sodium Chloride 1,000 ml @ 125 mls/hr Q8H 11/16/16 11:00 11/17/16 05:50 DC 11/17/16 03:00 125 MLS/HR Lab Laboratory Tests Test 11/17/16 04:30 11/17/16 07:09 White Blood Count 8.1 x10^3/uL (4.0-11.0) Red Blood Count 2.48 x10^6/uL (4.30-5.70) Hemoglobin 7.5 g/dL (13.0-17.5) Hematocrit 22.4 % (39.0-53.0) Mean Corpuscular Volume 90 fL (79-100) Mean Corpuscular Hemoglobin 30 pg (25-35) Mean Corpuscular Hemoglobin Concent 34 g/dL (31-37) Red Cell Distribution Width 15.6 % (11.5-14.5) Platelet Count 177 x10^3/uL (140-400) Neutrophils (%) (Auto) 73 % (31-73) Lymphocytes (%) (Auto) 15 % (24-48) Monocytes (%) (Auto) 7 % (0-9) Eosinophils (%) (Auto) 4 % (0-3) Basophils (%) (Auto) 1 % (0-3) Neutrophils # (Auto) 5.9 x10^3uL (1.8-7.7) Lymphocytes # (Auto) 1.2 x10^3/uL (1.0-4.8) Monocytes # (Auto) 0.6 x10^3/uL (0.0-1.1) Eosinophils # (Auto) 0.3 x10^3/uL (0.0-0.7) Basophils # (Auto) 0.1 x10^3/uL (0.0-0.2) Sodium Level 145 mmol/L (136-145) Potassium Level 4.5 mmol/L (3.5-5.1) Chloride Level 115 mmol/L (98-107) Carbon Dioxide Level 19 mmol/L (21-32) Anion Gap 11 (6-14) Blood Urea Nitrogen 39 mg/dL (8-26) Creatinine 2.3 mg/dL (0.7-1.3) Estimated GFR (Cockcroft-Gault) 27.9 BUN/Creatinine Ratio 17 (6-20) Glucose Level 95 mg/dL (70-99) Calcium Level 7.7 mg/dL (8.5-10.1) Phosphorus Level 3.3 mg/dL (2.6-4.7) Magnesium Level 1.8 mg/dL (1.8-2.4) Total Bilirubin 0.2 mg/dL (0.2-1.0) Aspartate Amino Transf (AST/SGOT) 17 U/L (15-37) Alanine Aminotransferase (ALT/SGPT) 10 U/L (16-63) Alkaline Phosphatase 59 U/L (46-116) Total Protein 4.7 g/dL (6.4-8.2) Albumin 2.2 g/dL (3.4-5.0) Albumin/Globulin Ratio 0.9 (1.0-1.7) Glucose (Fingerstick) 92 mg/dL (70-99) CATALINA BRAY MD Nov 17, 2016 10:42
--- NOTE | 2016-11-17 10:50 | PDOC2 ---
CRISTHIAN MCMANUS [employer] 11/17/16 1050: CARDIAC CONSULT DATE OF CONSULT Date of Consult DATE: 11/17/16 TIME: 10:39 REASON FOR CONSULT Reason for Consult: ectopy REFERRING PHYSICIAN Referring Physician: Daron SOURCE Source: Chart review, Patient HISTORY OF PRESENT ILLNESS HISTORY OF PRESENT ILLNESS This is a pleasant 75 yo Iza male admitted for vomiting blood. Pt speaks very little Albanian and appears to be a poor historian and almost answers no to everything I say. Based on review he has been noted with hematemesis with severe anemia. After EGD he was noted with PUD. He has been tachycardic at times and presently denies any CP, SOA. He is laying flat on bed without any complaints. PAST MEDICAL HISTORY Cardiovascular: HTN, Hyperlipidemia, Other (AAA) CENTRAL NERVOUS SYSTEM: CVA (right side hemiparesis) Musculoskeletal: Osteoarthritis Rheumatologic: Gout Renal/: Chronic renal insuff PAST SURGICAL HISTORY Past Surgical History unknown FAMILY HISTORY Family History: Family History Unknown SOCIAL HISTORY Smoke: No ALCOHOL: none Lives: with Family CURRENT MEDICATIONS CURRENT MEDICATIONS Current Medications Medications (Trade) Dose Ordered Sig/Ruben Route PRN Reason Start Time Stop Time Status Last Admin Dose Admin Sodium Chloride 1,000 ml @ 125 mls/hr Q8H IV 11/16/16 11:00 11/17/16 05:50 DC 11/17/16 03:00 Pantoprazole Sodium (Protonix) 40 mg BIDAC PO 11/16/16 16:30 11/17/16 07:10 Hydralazine HCl (Apresoline) 10 mg PRN Q4HRS PRN IVP ELEVATED BP, SEE COMMENTS 11/16/16 18:45 11/16/16 18:57 Magnesium Sulfate/ Dextrose 100 ml @ 100 mls/hr 1X ONCE IV 11/17/16 09:00 11/17/16 09:59 DC 11/17/16 09:04 ALLERGIES ALLERGIES: Coded Allergies: No Known Drug Allergies (Unverified , 09/30/14) ROS Review of System limited, language barrier and poor historian PHYSICAL EXAM General: Alert, Cooperative, No acute distress HEENT: Atraumatic, Mucous membr. moist/pink Lungs: Clear to auscultation, Normal air movement Heart: Regular rate (Sinus tach), Normal S1, Normal S2, Other (3/6 systolic murmur to LLS border) Abdomen: Soft, Other (truncal obesity) Extremities: No cyanosis, Other (trace LE edema) Skin: No breakdown, No significant lesion Neuro: Sensation intact Psych/Mental Status: Mood NL MUSCULOSKELETAL: Osteoarthritic changes both hands VITALS VITALS Vital Signs Date Time Temp Pulse Resp B/P (MAP) Pulse Ox O2 Delivery O2 Flow Rate FiO2 11/17/16 10:00 77 19 125/78 (94) 97 Room Air 11/17/16 07:00 99.4 99.4 11/16/16 14:07 10 LABS Lab: Laboratory Tests Test 11/17/16 04:30 11/17/16 07:09 White Blood Count 8.1 x10^3/uL (4.0-11.0) Red Blood Count 2.48 x10^6/uL (4.30-5.70) Hemoglobin 7.5 g/dL (13.0-17.5) Hematocrit 22.4 % (39.0-53.0) Mean Corpuscular Volume 90 fL (79-100) Mean Corpuscular Hemoglobin 30 pg (25-35) Mean Corpuscular Hemoglobin Concent 34 g/dL (31-37) Red Cell Distribution Width 15.6 % (11.5-14.5) Platelet Count 177 x10^3/uL (140-400) Neutrophils (%) (Auto) 73 % (31-73) Lymphocytes (%) (Auto) 15 % (24-48) Monocytes (%) (Auto) 7 % (0-9) Eosinophils (%) (Auto) 4 % (0-3) Basophils (%) (Auto) 1 % (0-3) Neutrophils # (Auto) 5.9 x10^3uL (1.8-7.7) Lymphocytes # (Auto) 1.2 x10^3/uL (1.0-4.8) Monocytes # (Auto) 0.6 x10^3/uL (0.0-1.1) Eosinophils # (Auto) 0.3 x10^3/uL (0.0-0.7) Basophils # (Auto) 0.1 x10^3/uL (0.0-0.2) Sodium Level 145 mmol/L (136-145) Potassium Level 4.5 mmol/L (3.5-5.1) Chloride Level 115 mmol/L (98-107) Carbon Dioxide Level 19 mmol/L (21-32) Anion Gap 11 (6-14) Blood Urea Nitrogen 39 mg/dL (8-26) Creatinine 2.3 mg/dL (0.7-1.3) Estimated GFR (Cockcroft-Gault) 27.9 BUN/Creatinine Ratio 17 (6-20) Glucose Level 95 mg/dL (70-99) Calcium Level 7.7 mg/dL (8.5-10.1) Phosphorus Level 3.3 mg/dL (2.6-4.7) Magnesium Level 1.8 mg/dL (1.8-2.4) Total Bilirubin 0.2 mg/dL (0.2-1.0) Aspartate Amino Transf (AST/SGOT) 17 U/L (15-37) Alanine Aminotransferase (ALT/SGPT) 10 U/L (16-63) Alkaline Phosphatase 59 U/L (46-116) Total Protein 4.7 g/dL (6.4-8.2) Albumin 2.2 g/dL (3.4-5.0) Albumin/Globulin Ratio 0.9 (1.0-1.7) Glucose (Fingerstick) 92 mg/dL (70-99) ASSESSMENT/PLAN ASSESSMENT/PLAN 1. GI bleed/PUD: GI following. S/P PRBC. Further transfusion pending 2. Tachyarrhythmia: Mainly sinus tach reactive to #1. 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 Appears to have bursts of AFIB at times (no prior Hx) likely induced by above. 3. SHANTANU on CKD: per nephrology 4. Hx of AAA: no notable abdominal bruit 5. Hx of CVA with right side hemiparesis Recommendations 1. Maintain intravascular volume, Treat extracardiac anomalies 2. Will place on metoprolol IV PRN if BP adequate for any sustained bursts of AFIB. 3. TTE tomorrow. 4. Not antiplatelet nor OAC/NOAC candidate at this time. Problems: MICHELINE VELASQUEZ MD 11/17/16 1233: CARDIAC CONSULT ALLERGIES ALLERGIES: Coded Allergies: No Known Drug Allergies (Unverified , 09/30/14) ASSESSMENT/PLAN ASSESSMENT/PLAN Pt. seen and examined. Agree with above [employer] note. 75 y.o male with GIB. Short bursts of paf. normal cardiac exam. supportive care. Start metoprolol 12.5mg bid. check echo for LV function. No anticoagulation at this time. Consideration for outpt RAJIV occlusion device ( Watchman) Problems: CRISTHIAN MCMANUS APRN Nov 17, 2016 10:50 MICHELINE VELASQUEZ MD Nov 17, 2016 12:33
[2016-11-17] MEDS ORDERED: METOPROLOL TARTRATE 5 MG/5 ML VIAL. IVP PRN (11:15)
[2016-11-17 12:08] LABS: BILIRUBIN,URINE NEGATIVE (NEG); GLUCOSE,URINE NEGATIVE (NEG); NITRITE,URINE NEGATIVE (NEG); PROTEIN,URINE NEGATIVE (NEG-TRACE); UROBILINOGEN,URINE 0.2 mg/dL (0.2 mg/dL)
[2016-11-17 12:17] LABS: BACTERIA,URINE 0 /HPF (0-FEW); RBC,URINE 0 /HPF (0-2); WBC,URINE 0 /HPF (0-4)
--- NOTE | 2016-11-17 14:16 | PDOC ---
PROGRESS NOTES Chief Complaint Chief Complaint Chief complaint: Upper GI bleeding Assessment and plan Upper GI bleeding: On IV Protonix, status post 3 units of PRBC hemoglobin improved, status post EGD diagnosed with gastric ulcers Tachycardia: Questionable A. fib, transfuse blood monitor heart rate, cardiology consultation, echocardiogram labs reviewed, electrolytes normal in the range Acute kidney injury with chronic kidney disease: Continue mild IV hydration, monitor BP and and creatinine and urine output Encephalopathy acute: CT head negative, alert and oriented Acute blood loss anemia due to upper GI bleeding Hyperkalemia: Normal range, History of Present Illness History of Present Illness No bleeding, tachycardia this morning, no nausea or or vomiting Feeling better Vitals Vitals Vital Signs Date Time Temp Pulse Resp B/P (MAP) Pulse Ox O2 Delivery O2 Flow Rate FiO2 11/17/16 13:00 64 18 141/78 (99) 95 Room Air 11/17/16 12:30 98.4 98.4 11/16/16 14:07 10 Physical Exam General: Alert, Cooperative, No acute distress Heart: Regular rate (Sinus tach), Normal S1, Normal S2, Other (3/6 systolic murmur to LLS border) Lungs: Clear Abdomen: Soft, Other (truncal obesity) Extremities: No cyanosis, Other (trace LE edema) Skin: No breakdown, No significant lesion Labs LABS Laboratory Tests Test 11/17/16 04:30 11/17/16 07:09 11/17/16 11:15 11/17/16 11:49 White Blood Count 8.1 x10^3/uL (4.0-11.0) Red Blood Count 2.48 x10^6/uL (4.30-5.70) Hemoglobin 7.5 g/dL (13.0-17.5) Hematocrit 22.4 % (39.0-53.0) Mean Corpuscular Volume 90 fL (79-100) Mean Corpuscular Hemoglobin 30 pg (25-35) Mean Corpuscular Hemoglobin Concent 34 g/dL (31-37) Red Cell Distribution Width 15.6 % (11.5-14.5) Platelet Count 177 x10^3/uL (140-400) Neutrophils (%) (Auto) 73 % (31-73) Lymphocytes (%) (Auto) 15 % (24-48) Monocytes (%) (Auto) 7 % (0-9) Eosinophils (%) (Auto) 4 % (0-3) Basophils (%) (Auto) 1 % (0-3) Neutrophils # (Auto) 5.9 x10^3uL (1.8-7.7) Lymphocytes # (Auto) 1.2 x10^3/uL (1.0-4.8) Monocytes # (Auto) 0.6 x10^3/uL (0.0-1.1) Eosinophils # (Auto) 0.3 x10^3/uL (0.0-0.7) Basophils # (Auto) 0.1 x10^3/uL (0.0-0.2) Sodium Level 145 mmol/L (136-145) Potassium Level 4.5 mmol/L (3.5-5.1) Chloride Level 115 mmol/L (98-107) Carbon Dioxide Level 19 mmol/L (21-32) Anion Gap 11 (6-14) Blood Urea Nitrogen 39 mg/dL (8-26) Creatinine 2.3 mg/dL (0.7-1.3) Estimated GFR (Cockcroft-Gault) 27.9 BUN/Creatinine Ratio 17 (6-20) Glucose Level 95 mg/dL (70-99) Calcium Level 7.7 mg/dL (8.5-10.1) Phosphorus Level 3.3 mg/dL (2.6-4.7) Magnesium Level 1.8 mg/dL (1.8-2.4) Total Bilirubin 0.2 mg/dL (0.2-1.0) Aspartate Amino Transf (AST/SGOT) 17 U/L (15-37) Alanine Aminotransferase (ALT/SGPT) 10 U/L (16-63) Alkaline Phosphatase 59 U/L (46-116) Total Protein 4.7 g/dL (6.4-8.2) Albumin 2.2 g/dL (3.4-5.0) Albumin/Globulin Ratio 0.9 (1.0-1.7) Glucose (Fingerstick) 92 mg/dL (70-99) 89 mg/dL (70-99) Urine Collection Type Unknown Urine Color Yellow Urine Clarity Clear Urine pH 6.0 Urine Specific [place] 1.010 Urine Protein Negative mg/dL (NEG-TRACE) Urine Glucose (UA) Negative mg/dL (NEG) Urine Ketones (Stick) Negative mg/dL (NEG) Urine Blood Negative (NEG) Urine Nitrite Negative (NEG) Urine Bilirubin Negative (NEG) Urine Urobilinogen Dipstick 0.2 mg/dL (0.2 mg/dL) Urine Leukocyte Esterase Negative (NEG) Urine RBC 0 /HPF (0-2) Urine WBC 0 /HPF (0-4) Urine Bacteria 0 /HPF (0-FEW) Assessment and Plan Assessmemt and Plan Problems Medical Problems: (1) Anemia Status: Acute (2) GI bleed Status: Acute (3) Metabolic encephalopathy Status: Acute Problems: Comment Review of Relevant I have reviewed the following items selin (where applicable) has been applied. Labs Laboratory Tests Test 11/15/16 14:30 11/15/16 14:55 11/15/16 15:45 11/15/16 21:07 Bedside Hemoglobin 6.8 g/dL (14-18) Bedside Hematocrit 20 % (37-52) Bedside Sodium 141 mmol/L (135-145) Bedside Potassium 5.1 mmol/L (3.5-5.0) Bedside Chloride 112 mmol/L (98-110) Bedside Total CO2 21 mmol/L (23-32) Anion Gap 14 mmol/L (6-14) 11 (6-14) Bedside Blood Urea Nitrogen 32 mg/dL (8-26) Bedside Creatinine 2.6 mg/dL (0.5-1.4) Glucose Level 130 mg/dL (70-99) 117 mg/dL (70-99) Bedside Ionized Calcium (Blas) 0.93 mmol/L (1.13-1.32) White Blood Count 13.7 x10^3/uL (4.0-11.0) Red Blood Count 2.12 x10^6/uL (4.30-5.70) Hemoglobin 6.5 g/dL (13.0-17.5) Hematocrit 19.9 % (39.0-53.0) Mean Corpuscular Volume 94 fL (79-100) Mean Corpuscular Hemoglobin 31 pg (25-35) Mean Corpuscular Hemoglobin Concent 33 g/dL (31-37) Red Cell Distribution Width 15.7 % (11.5-14.5) Platelet Count 259 x10^3/uL (140-400) Neutrophils (%) (Auto) 83 % (31-73) Lymphocytes (%) (Auto) 10 % (24-48) Monocytes (%) (Auto) 7 % (0-9) Eosinophils (%) (Auto) 0 % (0-3) Basophils (%) (Auto) 0 % (0-3) Neutrophils # (Auto) 11.4 x10^3uL (1.8-7.7) Lymphocytes # (Auto) 1.3 x10^3/uL (1.0-4.8) Monocytes # (Auto) 0.9 x10^3/uL (0.0-1.1) Eosinophils # (Auto) 0.1 x10^3/uL (0.0-0.7) Basophils # (Auto) 0.0 x10^3/uL (0.0-0.2) Prothrombin Time 14.8 SEC (11.7-14.0) Prothromb Time International Ratio 1.2 (0.8-1.1) Sodium Level 145 mmol/L (136-145) Potassium Level 5.2 mmol/L (3.5-5.1) Chloride Level 111 mmol/L (98-107) Carbon Dioxide Level 23 mmol/L (21-32) Blood Urea Nitrogen 37 mg/dL (8-26) Creatinine 2.6 mg/dL (0.7-1.3) Estimated GFR (Cockcroft-Gault) 24.2 BUN/Creatinine Ratio 14 (6-20) Lactic Acid Level 3.2 mmol/L (0.4-2.0) Calcium Level 7.8 mg/dL (8.5-10.1) Total Bilirubin 0.2 mg/dL (0.2-1.0) Aspartate Amino Transf (AST/SGOT) 26 U/L (15-37) Alanine Aminotransferase (ALT/SGPT) 17 U/L (16-63) Alkaline Phosphatase 73 U/L (46-116) Total Protein 5.3 g/dL (6.4-8.2) Albumin 2.3 g/dL (3.4-5.0) Albumin/Globulin Ratio 0.8 (1.0-1.7) Urine Collection Type Void Urine Color Yellow Urine Clarity Clear Urine pH 5.5 Urine Specific [place] 1.015 Urine Protein 100 mg/dL (NEG-TRACE) Urine Glucose (UA) Negative mg/dL (NEG) Urine Ketones (Stick) Negative mg/dL (NEG) Urine Blood Negative (NEG) Urine Nitrite Negative (NEG) Urine Bilirubin Negative (NEG) Urine Urobilinogen Dipstick 0.2 mg/dL (0.2 mg/dL) Urine Leukocyte Esterase Moderate (NEG) Urine RBC Rare /HPF (0-2) Urine WBC 20-40 /HPF (0-4) Urine Squamous Epithelial Cells Mod /LPF Urine Amorphous Sediment Present /HPF Urine Bacteria Mod /HPF (0-FEW) Urine Hyaline Casts Moderate /HPF Urine Mucus Slight /LPF Glucose (Fingerstick) 114 mg/dL (70-99) Test 11/15/16 21:15 11/16/16 00:50 11/16/16 04:40 11/17/16 04:30 Lactic Acid Level 1.5 mmol/L (0.4-2.0) Nasal Screen MRSA (PCR) Negative (Negative) White Blood Count 9.5 x10^3/uL (4.0-11.0) 8.1 x10^3/uL (4.0-11.0) Red Blood Count 2.72 x10^6/uL (4.30-5.70) 2.48 x10^6/uL (4.30-5.70) Hemoglobin 8.2 g/dL (13.0-17.5) 7.5 g/dL (13.0-17.5) Hematocrit 24.4 % (39.0-53.0) 22.4 % (39.0-53.0) Mean Corpuscular Volume 90 fL (79-100) 90 fL (79-100) Mean Corpuscular Hemoglobin 30 pg (25-35) 30 pg (25-35) Mean Corpuscular Hemoglobin Concent 34 g/dL (31-37) 34 g/dL (31-37) Red Cell Distribution Width 15.3 % (11.5-14.5) 15.6 % (11.5-14.5) Platelet Count 189 x10^3/uL (140-400) 177 x10^3/uL (140-400) Neutrophils (%) (Auto) 69 % (31-73) 73 % (31-73) Lymphocytes (%) (Auto) 20 % (24-48) 15 % (24-48) Monocytes (%) (Auto) 9 % (0-9) 7 % (0-9) Eosinophils (%) (Auto) 2 % (0-3) 4 % (0-3) Basophils (%) (Auto) 1 % (0-3) 1 % (0-3) Neutrophils # (Auto) 6.6 x10^3uL (1.8-7.7) 5.9 x10^3uL (1.8-7.7) Lymphocytes # (Auto) 1.9 x10^3/uL (1.0-4.8) 1.2 x10^3/uL (1.0-4.8) Monocytes # (Auto) 0.8 x10^3/uL (0.0-1.1) 0.6 x10^3/uL (0.0-1.1) Eosinophils # (Auto) 0.2 x10^3/uL (0.0-0.7) 0.3 x10^3/uL (0.0-0.7) Basophils # (Auto) 0.0 x10^3/uL (0.0-0.2) 0.1 x10^3/uL (0.0-0.2) Sodium Level 145 mmol/L (136-145) 145 mmol/L (136-145) Potassium Level 5.5 mmol/L (3.5-5.1) 4.5 mmol/L (3.5-5.1) Chloride Level 113 mmol/L (98-107) 115 mmol/L (98-107) Carbon Dioxide Level 20 mmol/L (21-32) 19 mmol/L (21-32) Anion Gap 12 (6-14) 11 (6-14) Blood Urea Nitrogen 49 mg/dL (8-26) 39 mg/dL (8-26) Creatinine 2.6 mg/dL (0.7-1.3) 2.3 mg/dL (0.7-1.3) Estimated GFR (Cockcroft-Gault) 24.2 27.9 Glucose Level 90 mg/dL (70-99) 95 mg/dL (70-99) Uric Acid 7.5 mg/dL (3.5-7.2) Calcium Level 7.7 mg/dL (8.5-10.1) 7.7 mg/dL (8.5-10.1) BUN/Creatinine Ratio 17 (6-20) Phosphorus Level 3.3 mg/dL (2.6-4.7) Magnesium Level 1.8 mg/dL (1.8-2.4) Total Bilirubin 0.2 mg/dL (0.2-1.0) Aspartate Amino Transf (AST/SGOT) 17 U/L (15-37) Alanine Aminotransferase (ALT/SGPT) 10 U/L (16-63) Alkaline Phosphatase 59 U/L (46-116) Total Protein 4.7 g/dL (6.4-8.2) Albumin 2.2 g/dL (3.4-5.0) Albumin/Globulin Ratio 0.9 (1.0-1.7) Test 11/17/16 07:09 11/17/16 11:15 11/17/16 11:49 Glucose (Fingerstick) 92 mg/dL (70-99) 89 mg/dL (70-99) Urine Collection Type Unknown Urine Color Yellow Urine Clarity Clear Urine pH 6.0 Urine Specific [place] 1.010 Urine Protein Negative mg/dL (NEG-TRACE) Urine Glucose (UA) Negative mg/dL (NEG) Urine Ketones (Stick) Negative mg/dL (NEG) Urine Blood Negative (NEG) Urine Nitrite Negative (NEG) Urine Bilirubin Negative (NEG) Urine Urobilinogen Dipstick 0.2 mg/dL (0.2 mg/dL) Urine Leukocyte Esterase Negative (NEG) Urine RBC 0 /HPF (0-2) Urine WBC 0 /HPF (0-4) Urine Bacteria 0 /HPF (0-FEW) Laboratory Tests Test 11/17/16 04:30 11/17/16 07:09 11/17/16 11:15 11/17/16 11:49 White Blood Count 8.1 x10^3/uL (4.0-11.0) Red Blood Count 2.48 x10^6/uL (4.30-5.70) Hemoglobin 7.5 g/dL (13.0-17.5) Hematocrit 22.4 % (39.0-53.0) Mean Corpuscular Volume 90 fL (79-100) Mean Corpuscular Hemoglobin 30 pg (25-35) Mean Corpuscular Hemoglobin Concent 34 g/dL (31-37) Red Cell Distribution Width 15.6 % (11.5-14.5) Platelet Count 177 x10^3/uL (140-400) Neutrophils (%) (Auto) 73 % (31-73) Lymphocytes (%) (Auto) 15 % (24-48) Monocytes (%) (Auto) 7 % (0-9) Eosinophils (%) (Auto) 4 % (0-3) Basophils (%) (Auto) 1 % (0-3) Neutrophils # (Auto) 5.9 x10^3uL (1.8-7.7) Lymphocytes # (Auto) 1.2 x10^3/uL (1.0-4.8) Monocytes # (Auto) 0.6 x10^3/uL (0.0-1.1) Eosinophils # (Auto) 0.3 x10^3/uL (0.0-0.7) Basophils # (Auto) 0.1 x10^3/uL (0.0-0.2) Sodium Level 145 mmol/L (136-145) Potassium Level 4.5 mmol/L (3.5-5.1) Chloride Level 115 mmol/L (98-107) Carbon Dioxide Level 19 mmol/L (21-32) Anion Gap 11 (6-14) Blood Urea Nitrogen 39 mg/dL (8-26) Creatinine 2.3 mg/dL (0.7-1.3) Estimated GFR (Cockcroft-Gault) 27.9 BUN/Creatinine Ratio 17 (6-20) Glucose Level 95 mg/dL (70-99) Calcium Level 7.7 mg/dL (8.5-10.1) Phosphorus Level 3.3 mg/dL (2.6-4.7) Magnesium Level 1.8 mg/dL (1.8-2.4) Total Bilirubin 0.2 mg/dL (0.2-1.0) Aspartate Amino Transf (AST/SGOT) 17 U/L (15-37) Alanine Aminotransferase (ALT/SGPT) 10 U/L (16-63) Alkaline Phosphatase 59 U/L (46-116) Total Protein 4.7 g/dL (6.4-8.2) Albumin 2.2 g/dL (3.4-5.0) Albumin/Globulin Ratio 0.9 (1.0-1.7) Glucose (Fingerstick) 92 mg/dL (70-99) 89 mg/dL (70-99) Urine Collection Type Unknown Urine Color Yellow Urine Clarity Clear Urine pH 6.0 Urine Specific [place] 1.010 Urine Protein Negative mg/dL (NEG-TRACE) Urine Glucose (UA) Negative mg/dL (NEG) Urine Ketones (Stick) Negative mg/dL (NEG) Urine Blood Negative (NEG) Urine Nitrite Negative (NEG) Urine Bilirubin Negative (NEG) Urine Urobilinogen Dipstick 0.2 mg/dL (0.2 mg/dL) Urine Leukocyte Esterase Negative (NEG) Urine RBC 0 /HPF (0-2) Urine WBC 0 /HPF (0-4) Urine Bacteria 0 /HPF (0-FEW) Microbiology 11/15/16 Urine Culture - Preliminary, Resulted 11/15/16 Urine Culture Result 1 (LATRICIA) - Preliminary, Resulted Medications Current Medications Sodium Chloride 1,000 ml @ 1,000 mls/hr 1X ONCE IV Last administered on 14:08; Start 11/15/16 at 14:00; Stop 11/15/16 at 14:59; Status DC Pantoprazole Sodium 80 mg/ Sodium Chloride 100 ml @ 10 mls/hr Q10H IV Last administered on 11/16/16 05:20; Start 11/15/16 at 16:00; Stop 11/16/16 at 14:13 ; Status DC Pantoprazole Sodium (Protonix Vial) 80 mg 1X ONCE IVP Last administered on 15:02; Start 11/15/16 at 15:30; Stop 11/15/16 at 15:31; Status DC Sodium Chloride 1,000 ml @ 100 mls/hr Q10H IV Last administered on 11/17/16 07:30; Start 11/15/16 at 16:15 Ceftriaxone Sodium 1 gm/ Sodium Chloride 50 ml @ 100 mls/hr Q24H IV Last administered on 11/16/16 21:26; Start 11/15/16 at 21:00 Calcium Gluconate (Calcium Gluconate) 1,000 mg 1X ONCE IVP Last administered on 11/16/16 19:01; Start 11/16/16 at 09:30; Stop 11/16/16 at 09:36; Status DC Magnesium Sulfate/ Dextrose 50 ml @ 25 mls/hr PRN DAILY PRN IV for Mag < 1.7 on am labs; Start 11/16/16 at 11:00 Sodium Chloride 1,000 ml @ 125 mls/hr Q8H IV Last administered on 11/17/16 03 :00; Start 11/16/16 at 11:00; Stop 11/17/16 at 05:50; Status DC Propofol 20 ml @ As Directed STK-MED ONCE IV ; Start 11/16/16 at 13:41; Stop at 13:54; Status DC Lidocaine HCl (Lidocaine Pf 2% Vial) 5 ml STK-MED ONCE .ROUTE ; Start 11/16/16 at 13:41; Stop 11/16/16 at 13:54; Status DC Pantoprazole Sodium (Protonix) 40 mg BIDAC PO Last administered on 11/17/16 07 :10; Start 11/16/16 at 16:30 Hydralazine HCl (Apresoline) 10 mg PRN Q4HRS PRN IVP ELEVATED BP, SEE COMMENTS Last administered on 11/16/16 18:57; Start 11/16/16 at 18:45 Insulin Aspart (NovoLOG) 0-5 UNITS TIDWMEALS SQ ; Start 11/17/16 at 08:00 Dextrose (Dextrose 50%-Water Syringe) 12.5 gm PRN Q15MIN PRN IV SEE COMMENTS; Start 11/16/16 at 18:45 Calcium Gluconate (Calcium Gluconate) 1,000 mg STK-MED ONCE .ROUTE ; Start 11/16 at 18:53; Stop 11/16/16 at 18:54; Status DC Magnesium Sulfate/ Dextrose 50 ml @ 25 mls/hr 1X ONCE IV ; Start 11/17/16 at 09 :00; Stop 11/17/16 at 09:00; Status DC Magnesium Sulfate/ Dextrose 100 ml @ 100 mls/hr 1X ONCE IV Last administered on 11/17/16 09:04; Start 11/17/16 at 09:00; Stop 11/17/16 at 09:59; Status DC Metoprolol Tartrate (Lopressor) 5 mg PRN Q6HRS PRN IVP ELEVATED BP, SEE COMMENTS Last administered on 11/17/16 11:46; Start 11/17/16 at 11:15 Metoprolol Tartrate (Lopressor) 12.5 mg BID PO ; Start 11/17/16 at 21:00 Active Scripts Active Reported Levemir (Insulin Detemir) 100 Unit/1 Ml Vial 10 Unit SQ QHS Allopurinol 100 Mg Tablet 100 Mg PO DAILY Bystolic (Nebivolol) 5 Mg Tablet 5 Mg PO BID Vitals/I & O Vital Sign - Last 24 Hours 11/16/16 11/16/16 11/16/16 11/16/16 14:23 14:28 14:45 15:00 Temp 98.0 98.0 98.0 98.0 Pulse 60 60 58 58 Resp 18 18 17 17 B/P (MAP) 99/50 149/69 162/73 (102) 162/72 (102) Pulse Ox 100 97 O2 Delivery Room Air Room Air 11/16/16 11/16/16 11/16/16 11/16/16 15:15 15:30 16:00 16:00 Temp 99.0 99.0 Pulse 56 58 58 Resp 14 15 19 B/P (MAP) 182/70 (107) 176/92 (120) 194/98 (130) O2 Delivery Room Air 11/16/16 11/16/16 11/16/16 11/16/16 17:00 18:00 18:57 19:00 Temp 98.4 98.4 Pulse 62 89 89 88 Resp 18 18 B/P (MAP) 170/85 (113) 198/78 (118) 198/78 165/70 (101) Pulse Ox 97 O2 Delivery Room Air 11/16/16 11/16/16 11/16/16 11/16/16 20:00 20:00 21:00 22:00 Pulse 83 88 83 Resp 18 18 18 B/P (MAP) 159/71 (100) 152/70 (97) 147/68 (94) Pulse Ox 97 97 96 O2 Delivery Room Air Room Air Room Air Room Air 11/16/16 11/16/16 11/17/16 11/17/16 23:00 23:59 00:00 01:00 Temp 99.0 99.0 Pulse 80 73 73 Resp 18 18 18 B/P (MAP) 140/60 (86) 126/76 (93) 129/64 (85) Pulse Ox 96 96 96 O2 Delivery Room Air Room Air Room Air Room Air 11/17/16 11/17/16 11/17/16 11/17/16 02:00 03:00 04:00 04:00 Temp 98.7 98.7 Pulse 71 74 66 75 Resp 18 18 18 18 B/P (MAP) 146/60 (88) 147/66 (93) 140/73 (95) 153/90 (111) Pulse Ox 96 96 96 96 O2 Delivery Room Air Room Air Room Air Room Air 11/17/16 11/17/16 11/17/16 11/17/16 04:00 05:00 06:00 07:00 Temp 99.4 99.4 Pulse 77 82 124 Resp 18 18 19 B/P (MAP) 142/82 (102) 123/82 (96) 104/60 (75) Pulse Ox 96 96 99 O2 Delivery Room Air Room Air Room Air Room Air 11/17/16 11/17/16 11/17/16 11/17/16 07:38 08:00 09:00 10:00 Pulse 121 130 77 Resp 18 18 19 B/P (MAP) 94/75 (81) 117/71 (86) 125/78 (94) Pulse Ox 97 97 97 O2 Delivery Room Air Room Air Room Air Room Air 11/17/16 11/17/16 11/17/16 11/17/16 11:00 11:30 11:44 11:46 Temp 99.2 99.1 99.2 99.1 Pulse 77 116 92 73 Resp 19 18 19 B/P (MAP) 113/79 (90) 113/79 131/64 131/64 Pulse Ox 97 O2 Delivery Room Air 11/17/16 11/17/16 11/17/16 11/17/16 11:58 12:04 12:30 13:00 Temp 98.6 98.4 98.6 98.4 Pulse 70 66 64 Resp 19 18 18 B/P (MAP) 126/75 (92) 127/75 141/78 (99) Pulse Ox 97 95 O2 Delivery Room Air Room Air Room Air Intake and Output 11/16/16 11/16/16 11/17/16 15:00 23:00 07:00 Intake Total 70 ml 970 ml 1617 ml Output Total 500 ml 100 ml Balance 70 ml 470 ml 1517 ml MOE VARGAS MD Nov 17, 2016 14:16
[2016-11-17] MEDS: METOPROLOL TART IMMED RELEASE 25 MG TABLET. PO SCH (21:27)
[2016-11-17] MEDS: hydrALAZINE 20 MG/ML VIAL. IVP PRN (21:28)
[2016-11-18] VITALS: BP 173/78
[2016-11-18] MEDS: IV NORMAL SALINE 1000ML BAG 1,000 ML IV SCH (01:07)
[2016-11-18 04:00] VITALS: BP 161/82
[2016-11-18] MEDS: hydrALAZINE 20 MG/ML VIAL. IVP PRN ×2 (05:18→09:30)
[2016-11-18 06:58] LABS: ALBUMIN 2.3 g/dL (3.4-5.0); CALCIUM 8.1 mg/dL (8.5-10.1); GFR 32.8; PHOSPHORUS 3.1 mg/dL (2.6-4.7)
[2016-11-18] MEDS: INSULIN ASPART 300 UNITS/3 ML INSULN.PEN SQ SCH (07:15)
[2016-11-18] MEDS: PANTOPRAZOLE 40 MG TABLET.DR. PO SCH ×2 (07:15→16:20)
[2016-11-18] MEDS: METOPROLOL TART IMMED RELEASE 25 MG TABLET. PO SCH ×2 (07:16→21:47)
--- NOTE | 2016-11-18 07:49 | PDOC ---
SUBJECTIVE ROS Alex + ? CKD III Doign OK overall CVS: no Orthopnea, no CP RESP: no SOB, no STEVENS GI: no Nausea, no Vomiting : no Dysuria, no Urgency OBJECTIVE Vital Signs Vital Signs Date Time Temp Pulse Resp B/P (MAP) Pulse Ox O2 Delivery O2 Flow Rate FiO2 11/18/16 07:16 75 185/95 11/18/16 04:00 14 99 Room Air 11/17/16 16:00 98.6 98.6 I & 0 Intake and Output 11/18/16 07:00 Intake Total 2320 ml Output Total 750 ml Balance 1570 ml Intake Oral 400 ml IV Total 1920 ml Output Urine Total 750 ml # Voids 5 PHYSICAL EXAM Physical Exam General Appearance: Awake Alert Oriented x 2 In no Distress Eyes: VIsion Unchanged Conjunctiva Normal EN: No EN Drainage Mucous Memb. moist - + Halitosis Neck: no JVD no JVP Supple no Thyromegaly CVS: S1 S2 ? Murmur No Gallop No Rub no Edema - tachy Resp: no Rales no Rhonchi no Acc. Muscle use GI: BAS +ve NO Bruit Non Tender Non Distended : no CVA tenderness; no Suprapubic Tenderness Assessment & Plan ALEX/ element of ATN too -mostly VMN OA asso with Hypotension OA and GI Bleed. Improving daily with IVF. ct IVF as ordered. Current FLuid and E-lyte status does not necessitate emergent need for Dialysis. Will re-evaluate for Dialysis in am ? Some underlying CKD III cannot be ruled out met ACidosis - will change IVF to bicarb Proteinuria on UA- ? r/o UTI (NGTD) suspect due to dehydration Anemia: GI bleed - EGD noted; transfuse prn HTN: Current BP meds reviewed. defer to cardiology for changes given new onset RVR Discussed Plan of Care and prognosis etc. at length with family. COMMENT/RELEVANT DATA Meds Current Medications Medications (Trade) Dose Ordered Sig/Ruben Start Time Stop Time Status Last Admin Dose Admin Calcium Gluconate (Calcium Gluconate) 1,000 mg STK-MED ONCE 11/16/16 18:53 11/16/16 18:54 DC Ceftriaxone Sodium 1 gm/ Sodium Chloride 50 ml @ 100 mls/hr Q24H 11/15/16 21:00 11/17/16 21:26 100 MLS/HR Dextrose (Dextrose 50%-Water Syringe) 12.5 gm PRN Q15MIN PRN 11/16/16 18:45 Hydralazine HCl (Apresoline) 10 mg PRN Q4HRS PRN 11/16/16 18:45 11/18/16 05:18 10 MG Insulin Aspart (NovoLOG) 0-5 UNITS TIDWMEALS 11/17/16 08:00 Lidocaine HCl (Lidocaine Pf 2% Vial) 5 ml STK-MED ONCE 11/16/16 13:41 11/16/16 13:54 DC Magnesium Sulfate/ Dextrose 100 ml @ 100 mls/hr 1X ONCE 11/17/16 09:00 11/17/16 09:59 DC 11/17/16 09:04 100 MLS/HR Metoprolol Tartrate (Lopressor) 12.5 mg BID 11/17/16 21:00 11/18/16 07:16 12.5 MG Pantoprazole Sodium (Protonix Vial) 80 mg 1X ONCE 11/15/16 15:30 11/15/16 15:31 DC 11/15/16 15:02 80 MG Pantoprazole Sodium (Protonix) 40 mg BIDAC 11/16/16 16:30 11/18/16 07:15 40 MG Pantoprazole Sodium 80 mg/ Sodium Chloride 100 ml @ 10 mls/hr Q10H 11/15/16 16:00 11/16/16 14:13 DC 11/16/16 05:20 10 MLS/HR Propofol 20 ml @ As Directed STK-MED ONCE 11/16/16 13:41 11/16/16 13:54 DC Sodium Chloride 1,000 ml @ 125 mls/hr Q8H 11/16/16 11:00 11/17/16 05:50 DC 11/17/16 03:00 125 MLS/HR Lab Laboratory Tests Test 11/17/16 11:15 11/17/16 11:49 11/17/16 16:17 11/17/16 21:34 Urine Collection Type Unknown Urine Color Yellow Urine Clarity Clear Urine pH 6.0 Urine Specific [place] 1.010 Urine Protein Negative mg/dL (NEG-TRACE) Urine Glucose (UA) Negative mg/dL (NEG) Urine Ketones (Stick) Negative mg/dL (NEG) Urine Blood Negative (NEG) Urine Nitrite Negative (NEG) Urine Bilirubin Negative (NEG) Urine Urobilinogen Dipstick 0.2 mg/dL (0.2 mg/dL) Urine Leukocyte Esterase Negative (NEG) Urine RBC 0 /HPF (0-2) Urine WBC 0 /HPF (0-4) Urine Bacteria 0 /HPF (0-FEW) Urine Random Sodium 155 mmol/L (Not Estab.) Glucose (Fingerstick) 89 mg/dL (70-99) 95 mg/dL (70-99) 110 mg/dL (70-99) Test 11/18/16 06:35 Sodium Level 143 mmol/L (136-145) Potassium Level 4.0 mmol/L (3.5-5.1) Chloride Level 114 mmol/L (98-107) Carbon Dioxide Level 18 mmol/L (21-32) Anion Gap 11 (6-14) Blood Urea Nitrogen 27 mg/dL (8-26) Creatinine 2.0 mg/dL (0.7-1.3) Estimated GFR (Cockcroft-Gault) 32.8 Glucose Level 114 mg/dL (70-99) Calcium Level 8.1 mg/dL (8.5-10.1) Phosphorus Level 3.1 mg/dL (2.6-4.7) Magnesium Level 1.9 mg/dL (1.8-2.4) Albumin 2.3 g/dL (3.4-5.0) CATALINA BRAY MD Nov 18, 2016 07:49
[2016-11-18 08:00] VITALS: BP 183/90
[2016-11-18] MEDS ORDERED: SODIUM BICARBONATE IV PRN (08:00)
[2016-11-18] MEDS ORDERED: POTASSIUM ACETATE IV PRN (08:00)
[2016-11-18] MEDS ORDERED: [UNRECOGNIZED DRUG - OTHER] IV PRN (08:00)
[2016-11-18] MEDS: amLODIPine BESYLATE 5 MG TABLET PO SCH (08:16)
--- NOTE | 2016-11-18 08:19 | PDOC ---
G I PROGRESS NOTE Reason for Follow-up UGIB/gastric ulcers Subjective "Gassy". No reports of any bleeding, N, V. Objective Cardiac rhythm better today. Physical Exam Lungs clear. RRR Abdomen soft, not apparently tender. Not distended. Review of Relevant I have reviewed the following items selin (where applicable) has been applied. Labs Laboratory Tests Test 11/17/16 04:30 11/17/16 07:09 11/17/16 11:15 11/17/16 11:49 White Blood Count 8.1 x10^3/uL (4.0-11.0) Red Blood Count 2.48 x10^6/uL (4.30-5.70) Hemoglobin 7.5 g/dL (13.0-17.5) Hematocrit 22.4 % (39.0-53.0) Mean Corpuscular Volume 90 fL (79-100) Mean Corpuscular Hemoglobin 30 pg (25-35) Mean Corpuscular Hemoglobin Concent 34 g/dL (31-37) Red Cell Distribution Width 15.6 % (11.5-14.5) Platelet Count 177 x10^3/uL (140-400) Neutrophils (%) (Auto) 73 % (31-73) Lymphocytes (%) (Auto) 15 % (24-48) Monocytes (%) (Auto) 7 % (0-9) Eosinophils (%) (Auto) 4 % (0-3) Basophils (%) (Auto) 1 % (0-3) Neutrophils # (Auto) 5.9 x10^3uL (1.8-7.7) Lymphocytes # (Auto) 1.2 x10^3/uL (1.0-4.8) Monocytes # (Auto) 0.6 x10^3/uL (0.0-1.1) Eosinophils # (Auto) 0.3 x10^3/uL (0.0-0.7) Basophils # (Auto) 0.1 x10^3/uL (0.0-0.2) Sodium Level 145 mmol/L (136-145) Potassium Level 4.5 mmol/L (3.5-5.1) Chloride Level 115 mmol/L (98-107) Carbon Dioxide Level 19 mmol/L (21-32) Anion Gap 11 (6-14) Blood Urea Nitrogen 39 mg/dL (8-26) Creatinine 2.3 mg/dL (0.7-1.3) Estimated GFR (Cockcroft-Gault) 27.9 BUN/Creatinine Ratio 17 (6-20) Glucose Level 95 mg/dL (70-99) Calcium Level 7.7 mg/dL (8.5-10.1) Phosphorus Level 3.3 mg/dL (2.6-4.7) Magnesium Level 1.8 mg/dL (1.8-2.4) Total Bilirubin 0.2 mg/dL (0.2-1.0) Aspartate Amino Transf (AST/SGOT) 17 U/L (15-37) Alanine Aminotransferase (ALT/SGPT) 10 U/L (16-63) Alkaline Phosphatase 59 U/L (46-116) Total Protein 4.7 g/dL (6.4-8.2) Albumin 2.2 g/dL (3.4-5.0) Albumin/Globulin Ratio 0.9 (1.0-1.7) Glucose (Fingerstick) 92 mg/dL (70-99) 89 mg/dL (70-99) Urine Collection Type Unknown Urine Color Yellow Urine Clarity Clear Urine pH 6.0 Urine Specific [place] 1.010 Urine Protein Negative mg/dL (NEG-TRACE) Urine Glucose (UA) Negative mg/dL (NEG) Urine Ketones (Stick) Negative mg/dL (NEG) Urine Blood Negative (NEG) Urine Nitrite Negative (NEG) Urine Bilirubin Negative (NEG) Urine Urobilinogen Dipstick 0.2 mg/dL (0.2 mg/dL) Urine Leukocyte Esterase Negative (NEG) Urine RBC 0 /HPF (0-2) Urine WBC 0 /HPF (0-4) Urine Bacteria 0 /HPF (0-FEW) Urine Random Sodium 155 mmol/L (Not Estab.) Test 11/17/16 16:17 11/17/16 21:34 11/18/16 06:35 Glucose (Fingerstick) 95 mg/dL (70-99) 110 mg/dL (70-99) Sodium Level 143 mmol/L (136-145) Potassium Level 4.0 mmol/L (3.5-5.1) Chloride Level 114 mmol/L (98-107) Carbon Dioxide Level 18 mmol/L (21-32) Anion Gap 11 (6-14) Blood Urea Nitrogen 27 mg/dL (8-26) Creatinine 2.0 mg/dL (0.7-1.3) Estimated GFR (Cockcroft-Gault) 32.8 Glucose Level 114 mg/dL (70-99) Calcium Level 8.1 mg/dL (8.5-10.1) Phosphorus Level 3.1 mg/dL (2.6-4.7) Magnesium Level 1.9 mg/dL (1.8-2.4) Albumin 2.3 g/dL (3.4-5.0) Laboratory Tests Test 11/17/16 11:15 11/17/16 11:49 11/17/16 16:17 11/17/16 21:34 Urine Collection Type Unknown Urine Color Yellow Urine Clarity Clear Urine pH 6.0 Urine Specific [place] 1.010 Urine Protein Negative mg/dL (NEG-TRACE) Urine Glucose (UA) Negative mg/dL (NEG) Urine Ketones (Stick) Negative mg/dL (NEG) Urine Blood Negative (NEG) Urine Nitrite Negative (NEG) Urine Bilirubin Negative (NEG) Urine Urobilinogen Dipstick 0.2 mg/dL (0.2 mg/dL) Urine Leukocyte Esterase Negative (NEG) Urine RBC 0 /HPF (0-2) Urine WBC 0 /HPF (0-4) Urine Bacteria 0 /HPF (0-FEW) Urine Random Sodium 155 mmol/L (Not Estab.) Glucose (Fingerstick) 89 mg/dL (70-99) 95 mg/dL (70-99) 110 mg/dL (70-99) Test 11/18/16 06:35 Sodium Level 143 mmol/L (136-145) Potassium Level 4.0 mmol/L (3.5-5.1) Chloride Level 114 mmol/L (98-107) Carbon Dioxide Level 18 mmol/L (21-32) Anion Gap 11 (6-14) Blood Urea Nitrogen 27 mg/dL (8-26) Creatinine 2.0 mg/dL (0.7-1.3) Estimated GFR (Cockcroft-Gault) 32.8 Glucose Level 114 mg/dL (70-99) Calcium Level 8.1 mg/dL (8.5-10.1) Phosphorus Level 3.1 mg/dL (2.6-4.7) Magnesium Level 1.9 mg/dL (1.8-2.4) Albumin 2.3 g/dL (3.4-5.0) Microbiology 11/15/16 Urine Culture - Final, Complete 11/15/16 Urine Culture Result 1 (LATRICIA) - Final, Complete No labs today yet. Medications Current Medications Sodium Chloride 1,000 ml @ 1,000 mls/hr 1X ONCE IV Last administered on 14:08; Start 11/15/16 at 14:00; Stop 11/15/16 at 14:59; Status DC Pantoprazole Sodium 80 mg/ Sodium Chloride 100 ml @ 10 mls/hr Q10H IV Last administered on 11/16/16 05:20; Start 11/15/16 at 16:00; Stop 11/16/16 at 14:13 ; Status DC Pantoprazole Sodium (Protonix Vial) 80 mg 1X ONCE IVP Last administered on 15:02; Start 11/15/16 at 15:30; Stop 11/15/16 at 15:31; Status DC Sodium Chloride 1,000 ml @ 100 mls/hr Q10H IV Last administered on 11/18/16 01:07; Start 11/15/16 at 16:15; Stop 11/18/16 at 07:50; Status DC Ceftriaxone Sodium 1 gm/ Sodium Chloride 50 ml @ 100 mls/hr Q24H IV Last administered on 11/17/16 21:26; Start 11/15/16 at 21:00 Calcium Gluconate (Calcium Gluconate) 1,000 mg 1X ONCE IVP Last administered on 11/16/16 19:01; Start 11/16/16 at 09:30; Stop 11/16/16 at 09:36; Status DC Magnesium Sulfate/ Dextrose 50 ml @ 25 mls/hr PRN DAILY PRN IV for Mag < 1.7 on am labs; Start 11/16/16 at 11:00 Sodium Chloride 1,000 ml @ 125 mls/hr Q8H IV Last administered on 11/17/16 03 :00; Start 11/16/16 at 11:00; Stop 11/17/16 at 05:50; Status DC Propofol 20 ml @ As Directed STK-MED ONCE IV ; Start 11/16/16 at 13:41; Stop at 13:54; Status DC Lidocaine HCl (Lidocaine Pf 2% Vial) 5 ml STK-MED ONCE .ROUTE ; Start 11/16/16 at 13:41; Stop 11/16/16 at 13:54; Status DC Pantoprazole Sodium (Protonix) 40 mg BIDAC PO Last administered on 11/18/16 07 :15; Start 11/16/16 at 16:30 Hydralazine HCl (Apresoline) 10 mg PRN Q4HRS PRN IVP ELEVATED BP, SEE COMMENTS Last administered on 11/18/16 05:18; Start 11/16/16 at 18:45 Insulin Aspart (NovoLOG) 0-5 UNITS TIDWMEALS SQ ; Start 11/17/16 at 08:00 Dextrose (Dextrose 50%-Water Syringe) 12.5 gm PRN Q15MIN PRN IV SEE COMMENTS; Start 11/16/16 at 18:45 Calcium Gluconate (Calcium Gluconate) 1,000 mg STK-MED ONCE .ROUTE ; Start 11/16 at 18:53; Stop 11/16/16 at 18:54; Status DC Magnesium Sulfate/ Dextrose 50 ml @ 25 mls/hr 1X ONCE IV ; Start 11/17/16 at 09 :00; Stop 11/17/16 at 09:00; Status DC Magnesium Sulfate/ Dextrose 100 ml @ 100 mls/hr 1X ONCE IV Last administered on 11/17/16 09:04; Start 11/17/16 at 09:00; Stop 11/17/16 at 09:59; Status DC Metoprolol Tartrate (Lopressor) 5 mg PRN Q6HRS PRN IVP ELEVATED BP, SEE COMMENTS Last administered on 11/17/16 11:46; Start 11/17/16 at 11:15 Metoprolol Tartrate (Lopressor) 12.5 mg BID PO Last administered on 11/18/16 07:16; Start 11/17/16 at 21:00 Amlodipine Besylate (Norvasc) 5 mg DAILY PO Last administered on 11/18/16 08: 16; Start 11/18/16 at 09:00 Sodium Bicarbonate 75 meq/Potassium Acetate 20 meq/ Sodium Chloride 1,085 ml @ 100 mls/hr [id number] PRN IV .; Start 11/18/16 at 08:00 Active Scripts Active Reported Levemir (Insulin Detemir) 100 Unit/1 Ml Vial 10 Unit SQ QHS Allopurinol 100 Mg Tablet 100 Mg PO DAILY Bystolic (Nebivolol) 5 Mg Tablet 5 Mg PO BID Vitals/I & O Vital Sign - Last 24 Hours 11/17/16 11/17/16 11/17/16 11/17/16 09:00 10:00 11:00 11:30 Temp 99.2 99.2 Pulse 130 77 77 116 Resp 18 19 19 18 B/P (MAP) 117/71 (86) 125/78 (94) 113/79 (90) 113/79 Pulse Ox 97 97 97 O2 Delivery Room Air Room Air Room Air 11/17/16 11/17/16 11/17/16 11/17/16 11:44 11:46 11:58 12:04 Temp 99.1 98.6 99.1 98.6 Pulse 92 73 70 Resp 19 19 B/P (MAP) 131/64 131/64 126/75 (92) Pulse Ox 97 O2 Delivery Room Air Room Air 11/17/16 11/17/16 11/17/16 11/17/16 12:30 13:00 16:00 20:00 Temp 98.4 98.6 98.4 98.6 Pulse 66 64 61 60 Resp 18 18 17 16 B/P (MAP) 127/75 141/78 (99) 151/62 (91) 139/93 (108) Pulse Ox 95 100 99 O2 Delivery Room Air Room Air Room Air 11/17/16 11/17/16 11/17/16 11/18/16 20:00 21:27 21:28 00:00 Pulse 67 65 70 Resp 16 B/P (MAP) 178/75 178/85 173/78 (109) Pulse Ox 98 O2 Delivery Room Air Room Air 11/18/16 11/18/16 11/18/16 11/18/16 04:00 05:18 07:16 08:16 Pulse 58 63 75 70 Resp 14 B/P (MAP) 161/82 (108) 177/79 185/95 185/72 Pulse Ox 99 O2 Delivery Room Air Intake and Output 11/17/16 11/17/16 11/18/16 15:00 23:00 07:00 Intake Total 1520 ml 800 ml Output Total 750 ml Balance -750 ml 1520 ml 800 ml Problem List Problems Medical Problems: (1) Anemia Status: Acute (2) GI bleed Status: Acute (3) Metabolic encephalopathy Status: Acute Assessment UGIB/gastric ulcers...malignant? Plan of Care: Continue current Tx, Mgmt Plan of Care Note Out of ICU? Await path. Could advance diet. GHADA VIZCARRA MD Nov 18, 2016 08:19
[2016-11-18] MEDS ORDERED: [UNRECOGNIZED DRUG - OTHER] IV SCH ×2 (08:45→09:30)
[2016-11-18] MEDS ORDERED: SODIUM BICARBONATE IV SCH ×2 (08:45→09:30)
[2016-11-18] MEDS ORDERED: POTASSIUM ACETATE IV SCH ×2 (08:45→09:30)
--- NOTE | 2016-11-18 09:54 | PDOC ---
Provider Note Provider Note No new issues. VSS, BP elevated. Will add hydralazine 25mg bid. Continue metoprolol 12.5mg bid. Supportive care. Await echo. Will follow peripherally. MICHELINE VELASQUEZ MD Nov 18, 2016 09:54
[2016-11-18 12:00] VITALS: BP 152/66
--- NOTE | 2016-11-18 12:15 | PDOC ---
PROGRESS NOTES Chief Complaint Chief Complaint Chief complaint: Upper GI bleeding Assessment and plan Upper GI bleeding: status post 3 units of PRBC hemoglobin improved, status post EGD diagnosed with gastric ulcers Proximal A. fib A. fib,: Cardiology following, continue current regimen Acute kidney injury with chronic kidney disease: Continue mild IV hydration, monitor BP and and creatinine and urine output Encephalopathy acute: Resolved Acute blood loss anemia due to upper GI bleeding Hypertension not controlled History of Present Illness History of Present Illness No fever, no chills, no chest pain Doing better Vitals Vitals Vital Signs Date Time Temp Pulse Resp B/P (MAP) Pulse Ox O2 Delivery O2 Flow Rate FiO2 11/18/16 12:00 97.9 62 18 152/66 (94) 99 Room Air 97.9 Physical Exam General: Alert, Cooperative, No acute distress Heart: Regular rate (Sinus tach), Normal S1, Normal S2, Other (3/6 systolic murmur to LLS border) Lungs: Clear Abdomen: Soft, Other (truncal obesity) Extremities: No cyanosis, Other (trace LE edema) Skin: No breakdown, No significant lesion Labs LABS Laboratory Tests Test 11/17/16 16:17 11/17/16 21:34 11/18/16 06:35 Glucose (Fingerstick) 95 mg/dL (70-99) 110 mg/dL (70-99) Sodium Level 143 mmol/L (136-145) Potassium Level 4.0 mmol/L (3.5-5.1) Chloride Level 114 mmol/L (98-107) Carbon Dioxide Level 18 mmol/L (21-32) Anion Gap 11 (6-14) Blood Urea Nitrogen 27 mg/dL (8-26) Creatinine 2.0 mg/dL (0.7-1.3) Estimated GFR (Cockcroft-Gault) 32.8 Glucose Level 114 mg/dL (70-99) Calcium Level 8.1 mg/dL (8.5-10.1) Phosphorus Level 3.1 mg/dL (2.6-4.7) Magnesium Level 1.9 mg/dL (1.8-2.4) Albumin 2.3 g/dL (3.4-5.0) Assessment and Plan Assessmemt and Plan Problems Medical Problems: (1) Anemia Status: Acute (2) GI bleed Status: Acute (3) Metabolic encephalopathy Status: Acute Problems: Comment Review of Relevant I have reviewed the following items selin (where applicable) has been applied. Labs Laboratory Tests Test 11/17/16 04:30 11/17/16 07:09 11/17/16 11:15 11/17/16 11:49 White Blood Count 8.1 x10^3/uL (4.0-11.0) Red Blood Count 2.48 x10^6/uL (4.30-5.70) Hemoglobin 7.5 g/dL (13.0-17.5) Hematocrit 22.4 % (39.0-53.0) Mean Corpuscular Volume 90 fL (79-100) Mean Corpuscular Hemoglobin 30 pg (25-35) Mean Corpuscular Hemoglobin Concent 34 g/dL (31-37) Red Cell Distribution Width 15.6 % (11.5-14.5) Platelet Count 177 x10^3/uL (140-400) Neutrophils (%) (Auto) 73 % (31-73) Lymphocytes (%) (Auto) 15 % (24-48) Monocytes (%) (Auto) 7 % (0-9) Eosinophils (%) (Auto) 4 % (0-3) Basophils (%) (Auto) 1 % (0-3) Neutrophils # (Auto) 5.9 x10^3uL (1.8-7.7) Lymphocytes # (Auto) 1.2 x10^3/uL (1.0-4.8) Monocytes # (Auto) 0.6 x10^3/uL (0.0-1.1) Eosinophils # (Auto) 0.3 x10^3/uL (0.0-0.7) Basophils # (Auto) 0.1 x10^3/uL (0.0-0.2) Sodium Level 145 mmol/L (136-145) Potassium Level 4.5 mmol/L (3.5-5.1) Chloride Level 115 mmol/L (98-107) Carbon Dioxide Level 19 mmol/L (21-32) Anion Gap 11 (6-14) Blood Urea Nitrogen 39 mg/dL (8-26) Creatinine 2.3 mg/dL (0.7-1.3) Estimated GFR (Cockcroft-Gault) 27.9 BUN/Creatinine Ratio 17 (6-20) Glucose Level 95 mg/dL (70-99) Calcium Level 7.7 mg/dL (8.5-10.1) Phosphorus Level 3.3 mg/dL (2.6-4.7) Magnesium Level 1.8 mg/dL (1.8-2.4) Total Bilirubin 0.2 mg/dL (0.2-1.0) Aspartate Amino Transf (AST/SGOT) 17 U/L (15-37) Alanine Aminotransferase (ALT/SGPT) 10 U/L (16-63) Alkaline Phosphatase 59 U/L (46-116) Total Protein 4.7 g/dL (6.4-8.2) Albumin 2.2 g/dL (3.4-5.0) Albumin/Globulin Ratio 0.9 (1.0-1.7) Glucose (Fingerstick) 92 mg/dL (70-99) 89 mg/dL (70-99) Urine Collection Type Unknown Urine Color Yellow Urine Clarity Clear Urine pH 6.0 Urine Specific [place] 1.010 Urine Protein Negative mg/dL (NEG-TRACE) Urine Glucose (UA) Negative mg/dL (NEG) Urine Ketones (Stick) Negative mg/dL (NEG) Urine Blood Negative (NEG) Urine Nitrite Negative (NEG) Urine Bilirubin Negative (NEG) Urine Urobilinogen Dipstick 0.2 mg/dL (0.2 mg/dL) Urine Leukocyte Esterase Negative (NEG) Urine RBC 0 /HPF (0-2) Urine WBC 0 /HPF (0-4) Urine Bacteria 0 /HPF (0-FEW) Urine Random Sodium 155 mmol/L (Not Estab.) Test 11/17/16 16:17 11/17/16 21:34 11/18/16 06:35 Glucose (Fingerstick) 95 mg/dL (70-99) 110 mg/dL (70-99) Sodium Level 143 mmol/L (136-145) Potassium Level 4.0 mmol/L (3.5-5.1) Chloride Level 114 mmol/L (98-107) Carbon Dioxide Level 18 mmol/L (21-32) Anion Gap 11 (6-14) Blood Urea Nitrogen 27 mg/dL (8-26) Creatinine 2.0 mg/dL (0.7-1.3) Estimated GFR (Cockcroft-Gault) 32.8 Glucose Level 114 mg/dL (70-99) Calcium Level 8.1 mg/dL (8.5-10.1) Phosphorus Level 3.1 mg/dL (2.6-4.7) Magnesium Level 1.9 mg/dL (1.8-2.4) Albumin 2.3 g/dL (3.4-5.0) Laboratory Tests Test 11/17/16 16:17 11/17/16 21:34 11/18/16 06:35 Glucose (Fingerstick) 95 mg/dL (70-99) 110 mg/dL (70-99) Sodium Level 143 mmol/L (136-145) Potassium Level 4.0 mmol/L (3.5-5.1) Chloride Level 114 mmol/L (98-107) Carbon Dioxide Level 18 mmol/L (21-32) Anion Gap 11 (6-14) Blood Urea Nitrogen 27 mg/dL (8-26) Creatinine 2.0 mg/dL (0.7-1.3) Estimated GFR (Cockcroft-Gault) 32.8 Glucose Level 114 mg/dL (70-99) Calcium Level 8.1 mg/dL (8.5-10.1) Phosphorus Level 3.1 mg/dL (2.6-4.7) Magnesium Level 1.9 mg/dL (1.8-2.4) Albumin 2.3 g/dL (3.4-5.0) Microbiology 11/17/16 Blood Culture - Preliminary, Resulted NO GROWTH AFTER 1 DAY 11/15/16 Urine Culture - Final, Complete 11/15/16 Urine Culture Result 1 (LATRICIA) - Final, Complete Medications Current Medications Sodium Chloride 1,000 ml @ 1,000 mls/hr 1X ONCE IV Last administered on 14:08; Start 11/15/16 at 14:00; Stop 11/15/16 at 14:59; Status DC Pantoprazole Sodium 80 mg/ Sodium Chloride 100 ml @ 10 mls/hr Q10H IV Last administered on 11/16/16 05:20; Start 11/15/16 at 16:00; Stop 11/16/16 at 14:13 ; Status DC Pantoprazole Sodium (Protonix Vial) 80 mg 1X ONCE IVP Last administered on 15:02; Start 11/15/16 at 15:30; Stop 11/15/16 at 15:31; Status DC Sodium Chloride 1,000 ml @ 100 mls/hr Q10H IV Last administered on 11/18/16 01:07; Start 11/15/16 at 16:15; Stop 11/18/16 at 07:50; Status DC Ceftriaxone Sodium 1 gm/ Sodium Chloride 50 ml @ 100 mls/hr Q24H IV Last administered on 11/17/16 21:26; Start 11/15/16 at 21:00 Calcium Gluconate (Calcium Gluconate) 1,000 mg 1X ONCE IVP Last administered on 11/16/16 19:01; Start 11/16/16 at 09:30; Stop 11/16/16 at 09:36; Status DC Magnesium Sulfate/ Dextrose 50 ml @ 25 mls/hr PRN DAILY PRN IV for Mag < 1.7 on am labs; Start 11/16/16 at 11:00 Sodium Chloride 1,000 ml @ 125 mls/hr Q8H IV Last administered on 11/17/16 03 :00; Start 11/16/16 at 11:00; Stop 11/17/16 at 05:50; Status DC Propofol 20 ml @ As Directed STK-MED ONCE IV ; Start 11/16/16 at 13:41; Stop at 13:54; Status DC Lidocaine HCl (Lidocaine Pf 2% Vial) 5 ml STK-MED ONCE .ROUTE ; Start 11/16/16 at 13:41; Stop 11/16/16 at 13:54; Status DC Pantoprazole Sodium (Protonix) 40 mg BIDAC PO Last administered on 11/18/16 07 :15; Start 11/16/16 at 16:30 Hydralazine HCl (Apresoline) 10 mg PRN Q4HRS PRN IVP ELEVATED BP, SEE COMMENTS Last administered on 11/18/16 09:30; Start 11/16/16 at 18:45 Insulin Aspart (NovoLOG) 0-5 UNITS TIDWMEALS SQ ; Start 11/17/16 at 08:00; Stop 11/18/16 at 11:16; Status DC Dextrose (Dextrose 50%-Water Syringe) 12.5 gm PRN Q15MIN PRN IV SEE COMMENTS; Start 11/16/16 at 18:45 Calcium Gluconate (Calcium Gluconate) 1,000 mg STK-MED ONCE .ROUTE ; Start 11/16 at 18:53; Stop 11/16/16 at 18:54; Status DC Magnesium Sulfate/ Dextrose 50 ml @ 25 mls/hr 1X ONCE IV ; Start 11/17/16 at 09 :00; Stop 11/17/16 at 09:00; Status DC Magnesium Sulfate/ Dextrose 100 ml @ 100 mls/hr 1X ONCE IV Last administered on 11/17/16 09:04; Start 11/17/16 at 09:00; Stop 11/17/16 at 09:59; Status DC Metoprolol Tartrate (Lopressor) 5 mg PRN Q6HRS PRN IVP ELEVATED BP, SEE COMMENTS Last administered on 11/17/16 11:46; Start 11/17/16 at 11:15 Metoprolol Tartrate (Lopressor) 12.5 mg BID PO Last administered on 11/18/16 07:16; Start 11/17/16 at 21:00 Amlodipine Besylate (Norvasc) 5 mg DAILY PO Last administered on 11/18/16 08: 16; Start 11/18/16 at 09:00 Sodium Bicarbonate 75 meq/Potassium Acetate 20 meq/ Sodium Chloride 1,085 ml @ 100 mls/hr [id number] PRN IV .; Start 11/18/16 at 08:00; Stop 11/18/16 at 19:00; Status Cancel Sodium Bicarbonate 75 meq/Potassium Acetate 20 meq/ Sodium Chloride 1,085 ml @ 100 mls/hr [id number] IV ; Start 11/18/16 at 08:45; Stop 11/18/16 at 08:45; Status DC Sodium Bicarbonate 75 meq/Potassium Acetate 20 meq/ Sodium Chloride 1,085 ml @ 100 mls/hr [id number] IV Last administered on 11/18/16 09:08; Start 11/18/16 at 09:30; Stop 11/18/16 at 10:09; Status DC Hydralazine HCl (Apresoline) 25 mg BID PO ; Start 11/18/16 at 21:00 Sodium Bicarbonate (Sodium Bicarbonate) 1,300 mg TID PO ; Start 11/18/16 at 14: 00 Active Scripts Active Reported Levemir (Insulin Detemir) 100 Unit/1 Ml Vial 10 Unit SQ QHS Allopurinol 100 Mg Tablet 100 Mg PO DAILY Bystolic (Nebivolol) 5 Mg Tablet 5 Mg PO BID Vitals/I & O Vital Sign - Last 24 Hours 11/17/16 11/17/16 11/17/16 11/17/16 12:30 13:00 16:00 20:00 Temp 98.4 98.6 98.4 98.6 Pulse 66 64 61 60 Resp 18 18 17 16 B/P (MAP) 127/75 141/78 (99) 151/62 (91) 139/93 (108) Pulse Ox 95 100 99 O2 Delivery Room Air Room Air Room Air 11/17/16 11/17/16 11/17/16 11/18/16 20:00 21:27 21:28 00:00 Pulse 67 65 70 Resp 16 B/P (MAP) 178/75 178/85 173/78 (109) Pulse Ox 98 O2 Delivery Room Air Room Air 11/18/16 11/18/16 11/18/16 11/18/16 04:00 05:18 07:16 08:00 Temp 98.2 98.2 Pulse 58 63 75 64 Resp 14 17 B/P (MAP) 161/82 (108) 177/79 185/95 183/90 (121) Pulse Ox 99 98 O2 Delivery Room Air Room Air 11/18/16 11/18/16 11/18/16 11/18/16 08:00 08:16 09:30 12:00 Temp 97.9 97.9 Pulse 70 63 62 Resp 18 B/P (MAP) 185/72 188/73 152/66 (94) Pulse Ox 99 O2 Delivery Room Air Room Air Intake and Output 11/17/16 11/17/16 11/18/16 15:00 23:00 07:00 Intake Total 1520 ml 800 ml Output Total 750 ml Balance -750 ml 1520 ml 800 ml MOE VARGAS MD Nov 18, 2016 12:15
[2016-11-18] MEDS: SODIUM BICARBONATE 650 MG TABLET. PO SCH ×2 (13:18→21:47)
[2016-11-18 16:00] VITALS: BP 158/71
[2016-11-18 20:00] VITALS: BP 161/74
[2016-11-18] MEDS: hydrALAZINE 25 MG TABLET PO SCH (21:48)
[2016-11-19] VITALS (8 sets, daily range): BP systolic 107–169; BP diastolic 60–76
[2016-11-19] MEDS: hydrALAZINE 20 MG/ML VIAL. IVP PRN ×2 (01:08→05:54)
[2016-11-19 06:56] LABS: ALBUMIN 2.4 g/dL (3.4-5.0); CALCIUM 7.9 mg/dL (8.5-10.1); CREATININE 1.8 mg/dL (0.7-1.3); GFR 37.1; PHOSPHORUS 2.7 mg/dL (2.6-4.7); POTASSIUM 3.8 mmol/L (3.5-5.1)
[2016-11-19] MEDS: SODIUM BICARBONATE 650 MG TABLET. PO SCH ×3 (07:56→21:02)
[2016-11-19] MEDS: amLODIPine BESYLATE 5 MG TABLET PO SCH (08:00)
[2016-11-19] MEDS: METOPROLOL TART IMMED RELEASE 25 MG TABLET. PO SCH ×2 (08:01→21:00)
[2016-11-19] MEDS: PANTOPRAZOLE 40 MG TABLET.DR. PO SCH ×2 (08:01→16:14)
[2016-11-19] MEDS: hydrALAZINE 25 MG TABLET PO SCH ×2 (08:01→20:59)
--- NOTE | 2016-11-19 08:02 | CARD ---
APPROVED REPORT EXAM: Two-dimensional and M-mode echocardiogram with Doppler and color Doppler. Other Information Quality : Good INDICATION Tachyarrythmia 2D DIMENSIONS Left Atrium(2D)3.8 (1.6-4.0cm)IVSd1.0 (0.7-1.1cm) Aortic Root(2D)3.1 (2.0-3.7cm)LVDd5.4 (3.9-5.9cm) LVOT Diameter2.1 (1.8-2.4cm)PWd1.1 (0.7-1.1cm) LVDs2.9 (2.5-4.0cm)FS (%) 30.0 % SV113.1 mlLVEF(%)60.0 (>50%) Aortic Valve AoV Peak Jayson.163.0cm/sAoV VTI34.5cm AO Peak GR.10.6mmHgLVOT VTI 24.96cm AO Mean GR.5mmHgAVA (VTI)2.50cm2 AI P 1/2 [id number] Mitral Valve MV E Bejtpioh59.2cm/sMV DECEL [id number] MV A Lfcoksbi664.1cm/sE/A Ratio0.8 TDI Lateral E' P. V7.85cm/sMedial E' P. V5.41cm/s E/Lateral E'10.5E/Medial E'15.2 Tricuspid Valve TR P. [id number]/sRAP [id number] TR Peak Gr.[id number] LEFT VENTRICLE The left ventricle is normal size. There is normal left ventricular wall thickness. The left ventricu lar systolic function is normal and the ejection fraction is within normal range. The Ejection Fracti on is 55-60%. There is normal LV segmental wall motion. Transmitral Doppler flow pattern is Grade I-a bnormal relaxation pattern. RIGHT VENTRICLE The right ventricle is normal size. The right ventricular systolic function is normal. ATRIA The left atrium size is normal. The right atrium size is normal. The interatrial septum is intact wit h no evidence for an atrial septal defect or patent foramen ovale as noted on 2-D or Doppler imaging. AORTIC VALVE The aortic valve is normal in structure and function. Doppler and Color Flow revealed moderate aortic regurgitation. There is no significant aortic valvular stenosis. MITRAL VALVE The mitral valve is calcified but opens well. There is no evidence of mitral valve prolapse. There is no mitral valve stenosis. Doppler and Color-flow revealed trace to mild mitral regurgitation. TRICUSPID VALVE The tricuspid valve is normal in structure and function. Doppler and Color Flow revealed trace tricus pid regurgitation. There is no tricuspid valve stenosis. PULMONIC VALVE The pulmonary valve is not well visualized but appears to be functioning normally by Doppler interrog ation. Doppler and Color Flow revealed trace pulmonic valvular regurgitation. There is no pulmonic va lvular stenosis. GREAT VESSELS The aortic root is normal in size. The aortic arch is not well seen. The IVC is normal in size and co llapses >50% with inspiration. PERICARDIAL EFFUSION There is no evidence of significant pericardial effusion. Critical Notification Critical Value: No <Conclusion> The left ventricular systolic function is normal and the ejection fraction is within normal range. Th e Ejection Fraction is 55-60%. There is normal LV segmental wall motion. Doppler and Color Flow revealed moderate aortic regurgitation.
[2016-11-19] MEDS ORDERED: MAGNESIUM SULFATE 2GM 50 ML IV ONE (08:30)
[2016-11-19] MEDS ORDERED: ONDANSETRON PF 4 MG/2 ML VIAL. IV PRN ×2 (10:15→13:00)
--- NOTE | 2016-11-19 11:06 | PDOC ---
Renal-Progress Notes Subjective Notes Notes NO COMPLAINTS History of Present Illness Hx of present illness BETTER Vitals Vitals Vital Signs Date Time Temp Pulse Resp B/P (MAP) Pulse Ox O2 Delivery O2 Flow Rate FiO2 11/19/16 08:01 88 168/72 11/19/16 08:00 98.9 21 97 Room Air 98.9 Weight Weight [ ] I.O. Intake and Output Intake and Output 11/19/16 07:00 Intake Total 728 ml Output Total 600 ml Balance 128 ml Intake Oral 475 ml IV Total 253 ml Output Urine Total 480 ml Emesis 120 ml # Voids 6 Labs Labs Laboratory Tests Test 11/19/16 05:30 11/19/16 05:35 Magnesium Level 1.7 mg/dL (1.8-2.4) Sodium Level 143 mmol/L (136-145) Potassium Level 3.8 mmol/L (3.5-5.1) Chloride Level 112 mmol/L (98-107) Carbon Dioxide Level 21 mmol/L (21-32) Anion Gap 10 (6-14) Blood Urea Nitrogen 18 mg/dL (8-26) Creatinine 1.8 mg/dL (0.7-1.3) Estimated GFR (Cockcroft-Gault) 37.1 Glucose Level 111 mg/dL (70-99) Calcium Level 7.9 mg/dL (8.5-10.1) Phosphorus Level 2.7 mg/dL (2.6-4.7) Albumin 2.4 g/dL (3.4-5.0) Micro Micro Microbiology 11/17/16 Blood Culture - Preliminary, Resulted NO GROWTH AFTER 1 DAY 11/15/16 Urine Culture - Final, Complete 11/15/16 Urine Culture Result 1 (LATRICIA) - Final, Complete Review of Systems Constitutional: yes: no symptom reported Physical Exam General Appearance: no apparent distress Skin: warm Respiratory: decreased breath sounds Heart: S1S2, RRR Abdomen: soft, bowel sounds present Genitourinary: bladder flat Neurology: alert, oriented Assessment Assessment IMP SHANTANU-IMPROVING WITH CR OF 2.6 TO 1.85 ANEMIA GI BLEED DUE TO GASTRIC ULCERS MET ACIDOSIS-BETTER HTN-STILL ELEVATED LOW MAG PLAN INCREASE NORVASC MAG REPLACED LOW FLOW IVF'S LABS IN AM YVONNE HARE MD Nov 19, 2016 11:06
[2016-11-19] MEDS: IV NORMAL SALINE 1000ML BAG 1,000 ML IV SCH (11:15)
[2016-11-19] MEDS ORDERED: amLODIPine BESYLATE 5 MG TABLET PO ONE (11:30)
--- NOTE | 2016-11-19 12:57 | PDOC ---
PROGRESS NOTES Chief Complaint Chief Complaint Chief complaint: Upper GI bleeding Assessment and plan Upper GI bleeding: status post 3 units of PRBC hemoglobin improved, status post EGD diagnosed with gastric ulcers, path pending Proximal A. fib A. fib, Acute kidney injury with chronic kidney disease: Continue mild IV hydration, monitor BP and and creatinine and urine output Encephalopathy acute: Resolved Acute blood loss anemia due to upper GI bleeding Hypertension not controlled hypomagnesemia plan: fu with renal, gi, card on metoprolol, increased amlodipine ivf protonix bid gi soft diet path pending ok to transfer out of ICU, cbc Daily dc abx replete Mag History of Present Illness History of Present Illness No fever, no chills, no chest pain Doing better vomited today, with abd pain Hb 7.5 cR 1.8 Vitals Vitals Vital Signs Date Time Temp Pulse Resp B/P (MAP) Pulse Ox O2 Delivery O2 Flow Rate FiO2 11/19/16 11:53 98.6 71 16 118/63 (81) 97 Room Air 98.6 Physical Exam General: Alert, Cooperative, No acute distress Heart: Regular rate (Sinus tach), Normal S1, Normal S2, Other (3/6 systolic murmur to LLS border) Lungs: Clear Abdomen: Soft, Other (Epigastric area + tenderness) Extremities: No cyanosis, Other (trace LE edema) Skin: No breakdown, No significant lesion Labs LABS Laboratory Tests Test 11/19/16 05:30 11/19/16 05:35 Magnesium Level 1.7 mg/dL (1.8-2.4) Sodium Level 143 mmol/L (136-145) Potassium Level 3.8 mmol/L (3.5-5.1) Chloride Level 112 mmol/L (98-107) Carbon Dioxide Level 21 mmol/L (21-32) Anion Gap 10 (6-14) Blood Urea Nitrogen 18 mg/dL (8-26) Creatinine 1.8 mg/dL (0.7-1.3) Estimated GFR (Cockcroft-Gault) 37.1 Glucose Level 111 mg/dL (70-99) Calcium Level 7.9 mg/dL (8.5-10.1) Phosphorus Level 2.7 mg/dL (2.6-4.7) Albumin 2.4 g/dL (3.4-5.0) Review of Systems Review of Systems no fever, chills, sob or chest pain Assessment and Plan Assessmemt and Plan Problems Medical Problems: (1) Anemia Status: Acute (2) GI bleed Status: Acute (3) Metabolic encephalopathy Status: Acute Problems: Comment Review of Relevant I have reviewed the following items selin (where applicable) has been applied. Labs Laboratory Tests Test 11/17/16 16:17 11/17/16 21:34 11/18/16 06:35 11/19/16 05:30 Glucose (Fingerstick) 95 mg/dL (70-99) 110 mg/dL (70-99) Sodium Level 143 mmol/L (136-145) Potassium Level 4.0 mmol/L (3.5-5.1) Chloride Level 114 mmol/L (98-107) Carbon Dioxide Level 18 mmol/L (21-32) Anion Gap 11 (6-14) Blood Urea Nitrogen 27 mg/dL (8-26) Creatinine 2.0 mg/dL (0.7-1.3) Estimated GFR (Cockcroft-Gault) 32.8 Glucose Level 114 mg/dL (70-99) Calcium Level 8.1 mg/dL (8.5-10.1) Phosphorus Level 3.1 mg/dL (2.6-4.7) Magnesium Level 1.9 mg/dL (1.8-2.4) 1.7 mg/dL (1.8-2.4) Albumin 2.3 g/dL (3.4-5.0) Test 11/19/16 05:35 Sodium Level 143 mmol/L (136-145) Potassium Level 3.8 mmol/L (3.5-5.1) Chloride Level 112 mmol/L (98-107) Carbon Dioxide Level 21 mmol/L (21-32) Anion Gap 10 (6-14) Blood Urea Nitrogen 18 mg/dL (8-26) Creatinine 1.8 mg/dL (0.7-1.3) Estimated GFR (Cockcroft-Gault) 37.1 Glucose Level 111 mg/dL (70-99) Calcium Level 7.9 mg/dL (8.5-10.1) Phosphorus Level 2.7 mg/dL (2.6-4.7) Albumin 2.4 g/dL (3.4-5.0) Laboratory Tests Test 11/19/16 05:30 11/19/16 05:35 Magnesium Level 1.7 mg/dL (1.8-2.4) Sodium Level 143 mmol/L (136-145) Potassium Level 3.8 mmol/L (3.5-5.1) Chloride Level 112 mmol/L (98-107) Carbon Dioxide Level 21 mmol/L (21-32) Anion Gap 10 (6-14) Blood Urea Nitrogen 18 mg/dL (8-26) Creatinine 1.8 mg/dL (0.7-1.3) Estimated GFR (Cockcroft-Gault) 37.1 Glucose Level 111 mg/dL (70-99) Calcium Level 7.9 mg/dL (8.5-10.1) Phosphorus Level 2.7 mg/dL (2.6-4.7) Albumin 2.4 g/dL (3.4-5.0) Microbiology 11/17/16 Blood Culture - Preliminary, Resulted NO GROWTH AFTER 2 DAYS 11/15/16 Urine Culture - Final, Complete 11/15/16 Urine Culture Result 1 (LATRICIA) - Final, Complete Medications Current Medications Sodium Chloride 1,000 ml @ 1,000 mls/hr 1X ONCE IV Last administered on 14:08; Start 11/15/16 at 14:00; Stop 11/15/16 at 14:59; Status DC Pantoprazole Sodium 80 mg/ Sodium Chloride 100 ml @ 10 mls/hr Q10H IV Last administered on 11/16/16 05:20; Start 11/15/16 at 16:00; Stop 11/16/16 at 14:13 ; Status DC Pantoprazole Sodium (Protonix Vial) 80 mg 1X ONCE IVP Last administered on 15:02; Start 11/15/16 at 15:30; Stop 11/15/16 at 15:31; Status DC Sodium Chloride 1,000 ml @ 100 mls/hr Q10H IV Last administered on 11/18/16 01:07; Start 11/15/16 at 16:15; Stop 11/18/16 at 07:50; Status DC Ceftriaxone Sodium 1 gm/ Sodium Chloride 50 ml @ 100 mls/hr Q24H IV Last administered on 11/18/16 21:48; Start 11/15/16 at 21:00; Stop 11/19/16 at 09:27 ; Status DC Calcium Gluconate (Calcium Gluconate) 1,000 mg 1X ONCE IVP Last administered on 11/16/16 19:01; Start 11/16/16 at 09:30; Stop 11/16/16 at 09:36; Status DC Magnesium Sulfate/ Dextrose 50 ml @ 25 mls/hr PRN DAILY PRN IV for Mag < 1.7 on am labs; Start 11/16/16 at 11:00 Sodium Chloride 1,000 ml @ 125 mls/hr Q8H IV Last administered on 11/17/16 03 :00; Start 11/16/16 at 11:00; Stop 11/17/16 at 05:50; Status DC Propofol 20 ml @ As Directed STK-MED ONCE IV ; Start 11/16/16 at 13:41; Stop at 13:54; Status DC Lidocaine HCl (Lidocaine Pf 2% Vial) 5 ml STK-MED ONCE .ROUTE ; Start 11/16/16 at 13:41; Stop 11/16/16 at 13:54; Status DC Pantoprazole Sodium (Protonix) 40 mg BIDAC PO Last administered on 11/19/16 08 :01; Start 11/16/16 at 16:30 Hydralazine HCl (Apresoline) 10 mg PRN Q4HRS PRN IVP ELEVATED BP, SEE COMMENTS Last administered on 11/19/16 05:54; Start 11/16/16 at 18:45 Insulin Aspart (NovoLOG) 0-5 UNITS TIDWMEALS SQ ; Start 11/17/16 at 08:00; Stop 11/18/16 at 11:16; Status DC Dextrose (Dextrose 50%-Water Syringe) 12.5 gm PRN Q15MIN PRN IV SEE COMMENTS; Start 11/16/16 at 18:45 Calcium Gluconate (Calcium Gluconate) 1,000 mg STK-MED ONCE .ROUTE ; Start 11/16 at 18:53; Stop 11/16/16 at 18:54; Status DC Magnesium Sulfate/ Dextrose 50 ml @ 25 mls/hr 1X ONCE IV ; Start 11/17/16 at 09 :00; Stop 11/17/16 at 09:00; Status DC Magnesium Sulfate/ Dextrose 100 ml @ 100 mls/hr 1X ONCE IV Last administered on 11/17/16 09:04; Start 11/17/16 at 09:00; Stop 11/17/16 at 09:59; Status DC Metoprolol Tartrate (Lopressor) 5 mg PRN Q6HRS PRN IVP ELEVATED BP, SEE COMMENTS Last administered on 11/17/16 11:46; Start 11/17/16 at 11:15 Metoprolol Tartrate (Lopressor) 12.5 mg BID PO Last administered on 11/19/16 08:01; Start 11/17/16 at 21:00 Amlodipine Besylate (Norvasc) 5 mg DAILY PO Last administered on 11/19/16 08: 00; Start 11/18/16 at 09:00; Stop 11/19/16 at 11:08; Status DC Sodium Bicarbonate 75 meq/Potassium Acetate 20 meq/ Sodium Chloride 1,085 ml @ 100 mls/hr [id number] PRN IV .; Start 11/18/16 at 08:00; Stop 11/18/16 at 19:00; Status Cancel Sodium Bicarbonate 75 meq/Potassium Acetate 20 meq/ Sodium Chloride 1,085 ml @ 100 mls/hr [id number] IV ; Start 11/18/16 at 08:45; Stop 11/18/16 at 08:45; Status DC Sodium Bicarbonate 75 meq/Potassium Acetate 20 meq/ Sodium Chloride 1,085 ml @ 100 mls/hr [id number] IV Last administered on 11/18/16 09:08; Start 11/18/16 at 09:30; Stop 11/18/16 at 10:09; Status DC Hydralazine HCl (Apresoline) 25 mg BID PO Last administered on 11/19/16 08:01 ; Start 11/18/16 at 21:00 Sodium Bicarbonate (Sodium Bicarbonate) 1,300 mg TID PO Last administered on 07:56; Start 11/18/16 at 14:00 Magnesium Sulfate/ Dextrose 50 ml @ 25 mls/hr 1X ONCE IV Last administered on 11/19/16 08:30; Start 11/19/16 at 08:30; Stop 11/19/16 at 10:29; Status DC Ondansetron HCl (Zofran) 4 mg PRN Q6HRS PRN IV NAUSEA/VOMITING Last administered on 7/24/17at 10:22; Start 11/19/16 at 10:15 Sodium Chloride 1,000 ml @ 75 mls/hr [id number] IV Last administered on 11:15; Start 11/19/16 at 11:15 Amlodipine Besylate (Norvasc) 10 mg DAILY PO ; Start 11/20/16 at 09:00 Amlodipine Besylate (Norvasc) 5 mg 1X ONCE PO ; Start 11/19/16 at 11:30; Stop 11/19/16 at 11:31; Status DC Active Scripts Active Reported Levemir (Insulin Detemir) 100 Unit/1 Ml Vial 10 Unit SQ QHS Allopurinol 100 Mg Tablet 100 Mg PO DAILY Bystolic (Nebivolol) 5 Mg Tablet 5 Mg PO BID Vitals/I & O Vital Sign - Last 24 Hours 11/18/16 11/18/16 11/18/16 11/18/16 16:00 20:00 20:00 21:47 Temp 98.1 98.9 98.1 98.9 Pulse 76 78 78 Resp 20 B/P (MAP) 158/71 (100) 161/74 (103) 161/74 Pulse Ox 97 99 O2 Delivery Room Air Room Air Room Air 11/18/16 11/19/16 11/19/16 11/19/16 21:48 00:00 01:08 02:00 Pulse 78 71 68 85 Resp B/P (MAP) 161/74 169/76 (107) 177/82 151/72 (98) Pulse Ox 97 97 O2 Delivery Room Air Room Air 11/19/16 11/19/16 11/19/16 11/19/16 04:00 05:54 06:07 08:00 Temp 99.1 99.1 Pulse 74 81 80 88 Resp B/P (MAP) 158/76 (103) 176/82 154/70 (98) 168/72 Pulse Ox 97 98 O2 Delivery Room Air Room Air 11/19/16 11/19/16 11/19/16 11/19/16 08:00 08:00 08:01 08:01 Temp 98.9 98.9 Pulse 71 88 88 Resp 21 B/P (MAP) 168/72 (104) 168/72 168/72 Pulse Ox 97 O2 Delivery Room Air Room Air 11/19/16 11:53 Temp 98.6 98.6 Pulse 71 Resp 16 B/P (MAP) 118/63 (81) Pulse Ox 97 O2 Delivery Room Air Intake and Output 11/18/16 11/18/16 11/19/16 14:59 22:59 06:59 Intake Total 258 ml 370 ml 100 ml Output Total 280 ml 320 ml Balance -22 ml 50 ml 100 ml YASIR MARIE MD Nov 19, 2016 12:57
[2016-11-19] MEDS ORDERED: MORPHINE SULFATE 2 MG/ML DISP.SYRIN. IV PRN (13:00)
[2016-11-19] MEDS ORDERED: hydrALAZINE 20 MG/ML VIAL. IVP PRN (13:00)
[2016-11-19] MEDS ORDERED: traMADol 50 MG TABLET PO PRN (13:00)
[2016-11-19] MEDS ORDERED: ACETAMINOPHEN 325 MG TABLET. PO PRN (13:00)
[2016-11-19] MEDS ORDERED: DOCUSATE SODIUM 100 MG CAPSULE. PO PRN (13:00)
--- NOTE | 2016-11-19 13:20 | PDOC ---
G I PROGRESS NOTE Reason for Follow-up UGIB/gastric ulcers Subjective Per staff, emesis of soft diet. Nausea persists. Denies pain. Objective No reports of any bleeding. Physical Exam Lungs clear. RRR Abdomen soft, not tender nor distended. Review of Relevant I have reviewed the following items selin (where applicable) has been applied. Labs Laboratory Tests Test 11/17/16 16:17 11/17/16 21:34 11/18/16 06:35 11/19/16 05:30 Glucose (Fingerstick) 95 mg/dL (70-99) 110 mg/dL (70-99) Sodium Level 143 mmol/L (136-145) Potassium Level 4.0 mmol/L (3.5-5.1) Chloride Level 114 mmol/L (98-107) Carbon Dioxide Level 18 mmol/L (21-32) Anion Gap 11 (6-14) Blood Urea Nitrogen 27 mg/dL (8-26) Creatinine 2.0 mg/dL (0.7-1.3) Estimated GFR (Cockcroft-Gault) 32.8 Glucose Level 114 mg/dL (70-99) Calcium Level 8.1 mg/dL (8.5-10.1) Phosphorus Level 3.1 mg/dL (2.6-4.7) Magnesium Level 1.9 mg/dL (1.8-2.4) 1.7 mg/dL (1.8-2.4) Albumin 2.3 g/dL (3.4-5.0) Test 11/19/16 05:35 Sodium Level 143 mmol/L (136-145) Potassium Level 3.8 mmol/L (3.5-5.1) Chloride Level 112 mmol/L (98-107) Carbon Dioxide Level 21 mmol/L (21-32) Anion Gap 10 (6-14) Blood Urea Nitrogen 18 mg/dL (8-26) Creatinine 1.8 mg/dL (0.7-1.3) Estimated GFR (Cockcroft-Gault) 37.1 Glucose Level 111 mg/dL (70-99) Calcium Level 7.9 mg/dL (8.5-10.1) Phosphorus Level 2.7 mg/dL (2.6-4.7) Albumin 2.4 g/dL (3.4-5.0) Laboratory Tests Test 11/19/16 05:30 11/19/16 05:35 Magnesium Level 1.7 mg/dL (1.8-2.4) Sodium Level 143 mmol/L (136-145) Potassium Level 3.8 mmol/L (3.5-5.1) Chloride Level 112 mmol/L (98-107) Carbon Dioxide Level 21 mmol/L (21-32) Anion Gap 10 (6-14) Blood Urea Nitrogen 18 mg/dL (8-26) Creatinine 1.8 mg/dL (0.7-1.3) Estimated GFR (Cockcroft-Gault) 37.1 Glucose Level 111 mg/dL (70-99) Calcium Level 7.9 mg/dL (8.5-10.1) Phosphorus Level 2.7 mg/dL (2.6-4.7) Albumin 2.4 g/dL (3.4-5.0) Microbiology 11/17/16 Blood Culture - Preliminary, Resulted NO GROWTH AFTER 2 DAYS 11/15/16 Urine Culture - Final, Complete 11/15/16 Urine Culture Result 1 (LATRICIA) - Final, Complete Medications Current Medications Sodium Chloride 1,000 ml @ 1,000 mls/hr 1X ONCE IV Last administered on 14:08; Start 11/15/16 at 14:00; Stop 11/15/16 at 14:59; Status DC Pantoprazole Sodium 80 mg/ Sodium Chloride 100 ml @ 10 mls/hr Q10H IV Last administered on 11/16/16 05:20; Start 11/15/16 at 16:00; Stop 11/16/16 at 14:13 ; Status DC Pantoprazole Sodium (Protonix Vial) 80 mg 1X ONCE IVP Last administered on 15:02; Start 11/15/16 at 15:30; Stop 11/15/16 at 15:31; Status DC Sodium Chloride 1,000 ml @ 100 mls/hr Q10H IV Last administered on 11/18/16 01:07; Start 11/15/16 at 16:15; Stop 11/18/16 at 07:50; Status DC Ceftriaxone Sodium 1 gm/ Sodium Chloride 50 ml @ 100 mls/hr Q24H IV Last administered on 11/18/16 21:48; Start 11/15/16 at 21:00; Stop 11/19/16 at 09:27 ; Status DC Calcium Gluconate (Calcium Gluconate) 1,000 mg 1X ONCE IVP Last administered on 11/16/16 19:01; Start 11/16/16 at 09:30; Stop 11/16/16 at 09:36; Status DC Magnesium Sulfate/ Dextrose 50 ml @ 25 mls/hr PRN DAILY PRN IV for Mag < 1.7 on am labs; Start 11/16/16 at 11:00 Sodium Chloride 1,000 ml @ 125 mls/hr Q8H IV Last administered on 11/17/16 03 :00; Start 11/16/16 at 11:00; Stop 11/17/16 at 05:50; Status DC Propofol 20 ml @ As Directed STK-MED ONCE IV ; Start 11/16/16 at 13:41; Stop at 13:54; Status DC Lidocaine HCl (Lidocaine Pf 2% Vial) 5 ml STK-MED ONCE .ROUTE ; Start 11/16/16 at 13:41; Stop 11/16/16 at 13:54; Status DC Pantoprazole Sodium (Protonix) 40 mg BIDAC PO Last administered on 11/19/16 08 :01; Start 11/16/16 at 16:30 Hydralazine HCl (Apresoline) 10 mg PRN Q4HRS PRN IVP ELEVATED BP, SEE COMMENTS Last administered on 11/19/16 05:54; Start 11/16/16 at 18:45 Insulin Aspart (NovoLOG) 0-5 UNITS TIDWMEALS SQ ; Start 11/17/16 at 08:00; Stop 11/18/16 at 11:16; Status DC Dextrose (Dextrose 50%-Water Syringe) 12.5 gm PRN Q15MIN PRN IV SEE COMMENTS; Start 11/16/16 at 18:45 Calcium Gluconate (Calcium Gluconate) 1,000 mg STK-MED ONCE .ROUTE ; Start 11/16 at 18:53; Stop 11/16/16 at 18:54; Status DC Magnesium Sulfate/ Dextrose 50 ml @ 25 mls/hr 1X ONCE IV ; Start 11/17/16 at 09 :00; Stop 11/17/16 at 09:00; Status DC Magnesium Sulfate/ Dextrose 100 ml @ 100 mls/hr 1X ONCE IV Last administered on 11/17/16 09:04; Start 11/17/16 at 09:00; Stop 11/17/16 at 09:59; Status DC Metoprolol Tartrate (Lopressor) 5 mg PRN Q6HRS PRN IVP ELEVATED BP, SEE COMMENTS Last administered on 11/17/16 11:46; Start 11/17/16 at 11:15 Metoprolol Tartrate (Lopressor) 12.5 mg BID PO Last administered on 11/19/16 08:01; Start 11/17/16 at 21:00 Amlodipine Besylate (Norvasc) 5 mg DAILY PO Last administered on 11/19/16 08: 00; Start 11/18/16 at 09:00; Stop 11/19/16 at 11:08; Status DC Sodium Bicarbonate 75 meq/Potassium Acetate 20 meq/ Sodium Chloride 1,085 ml @ 100 mls/hr [id number] PRN IV .; Start 11/18/16 at 08:00; Stop 11/18/16 at 19:00; Status Cancel Sodium Bicarbonate 75 meq/Potassium Acetate 20 meq/ Sodium Chloride 1,085 ml @ 100 mls/hr [id number] IV ; Start 11/18/16 at 08:45; Stop 11/18/16 at 08:45; Status DC Sodium Bicarbonate 75 meq/Potassium Acetate 20 meq/ Sodium Chloride 1,085 ml @ 100 mls/hr [id number] IV Last administered on 11/18/16 09:08; Start 11/18/16 at 09:30; Stop 11/18/16 at 10:09; Status DC Hydralazine HCl (Apresoline) 25 mg BID PO Last administered on 11/19/16 08:01 ; Start 11/18/16 at 21:00 Sodium Bicarbonate (Sodium Bicarbonate) 1,300 mg TID PO Last administered on 13:07; Start 11/18/16 at 14:00 Magnesium Sulfate/ Dextrose 50 ml @ 25 mls/hr 1X ONCE IV Last administered on 11/19/16 08:30; Start 11/19/16 at 08:30; Stop 11/19/16 at 10:29; Status DC Ondansetron HCl (Zofran) 4 mg PRN Q6HRS PRN IV NAUSEA/VOMITING Last administered on 11/19/16 10:22; Start 11/19/16 at 10:15 Sodium Chloride 1,000 ml @ 75 mls/hr [id number] IV Last administered on 11:15; Start 11/19/16 at 11:15 Amlodipine Besylate (Norvasc) 10 mg DAILY PO ; Start 11/20/16 at 09:00 Amlodipine Besylate (Norvasc) 5 mg 1X ONCE PO Last administered on 11/19/16 13:07; Start 11/19/16 at 11:30; Stop 11/19/16 at 11:31; Status DC Acetaminophen (Tylenol) 650 mg PRN Q6HRS PRN PO FEVER; Start 11/19/16 at 13:00 Ondansetron HCl (Zofran) 4 mg PRN Q6HRS PRN IV NAUSEA/VOMITING; Start 11/19/16 at 13:00 Morphine Sulfate 2 mg PRN Q2HR PRN IV PAIN; Start 11/19/16 at 13:00 Tramadol HCl (Ultram) 50 mg PRN Q6HRS PRN PO PAIN; Start 11/19/16 at 13:00 Hydralazine HCl (Apresoline) 10 mg PRN Q4HRS PRN IVP ELEVATED BP, SEE COMMENTS ; Start 11/19/16 at 13:00 Docusate Sodium (Colace) 100 mg PRN DAILY PRN PO CONSTIPATION; Start 11/19/16 at 13:00 Active Scripts Active Reported Levemir (Insulin Detemir) 100 Unit/1 Ml Vial 10 Unit SQ QHS Allopurinol 100 Mg Tablet 100 Mg PO DAILY Bystolic (Nebivolol) 5 Mg Tablet 5 Mg PO BID Vitals/I & O Vital Sign - Last 24 Hours 11/18/16 11/18/16 11/18/16 11/18/16 16:00 20:00 20:00 21:47 Temp 98.1 98.9 98.1 98.9 Pulse 76 78 78 Resp 20 22 B/P (MAP) 158/71 (100) 161/74 (103) 161/74 Pulse Ox 97 99 O2 Delivery Room Air Room Air Room Air 11/18/16 11/19/16 11/19/16 11/19/16 21:48 00:00 01:08 02:00 Pulse 78 71 68 85 Resp 20 16 B/P (MAP) 161/74 169/76 (107) 177/82 151/72 (98) Pulse Ox 97 97 O2 Delivery Room Air Room Air 11/19/16 11/19/16 11/19/16 11/19/16 04:00 05:54 06:07 08:00 Temp 99.1 99.1 Pulse 74 81 80 88 Resp B/P (MAP) 158/76 (103) 176/82 154/70 (98) 168/72 Pulse Ox 97 98 O2 Delivery Room Air Room Air 11/19/16 11/19/16 11/19/16 11/19/16 08:00 08:00 08:01 08:01 Temp 98.9 98.9 Pulse 71 88 88 Resp 21 B/P (MAP) 168/72 (104) 168/72 168/72 Pulse Ox 97 O2 Delivery Room Air Room Air 11/19/16 11/19/16 11:53 13:07 Temp 98.6 98.6 Pulse 71 77 Resp 16 B/P (MAP) 118/63 (81) 143/81 Pulse Ox 97 O2 Delivery Room Air Intake and Output 11/18/16 11/18/16 11/19/16 15:00 23:00 07:00 Intake Total 258 ml 420 ml 50 ml Output Total 280 ml 320 ml Balance -22 ml 100 ml 50 ml Problem List Problems Medical Problems: (1) Anemia Status: Acute (2) GI bleed Status: Acute (3) Metabolic encephalopathy Status: Acute Assessment Intolerant of diet. 's, path pending. Plan of Care: Continue current Tx, Mgmt Plan of Care Note Asked staff to back off diet a bit. Await path. Out of ICU? GHADA VIZCARRA MD Nov 19, 2016 13:20
--- NOTE | 2016-11-19 13:46 | PATHOLOGY ---
PATHOLOGY REPORT * * * * * * * * FINAL DIAGNOSIS: A. Gastric biopsy, antrum: - Active chronic gastritis, [id number], with rare Helicobacter organism identified. B. Gastric biopsy, greater curvature ulcer: - Active chronic gastritis, mild to moderate/marked, with ulceration. COMMENT: Sections of the gastric antral biopsy show congestion and mild to moderate active chronic inflammation with scattered admixed eosinophils. An immunoperoxidase stain for Helicobacter is obtained and reveals a rare Helicobacter organism. Sections of the greater curvature ulcer biopsy reveal segments of gastric body mucosa showing mild to moderate/marked active chronic inflammation with admixed eosinophils and with focal ulceration. An immunoperoxidase stain for Helicobacter is obtained. No Helicobacter organisms are identified. There is no evidence of malignancy. (JPM:mml; 11/19/2016) REPORT ELECTRONICALLY SIGNED BY: Alexandr Sosa M.D. DATE/TIME: 11/19/2016 13:45 * * * * * * * * GROSS PATHOLOGY: A. Received in formalin labeled "Mariel Dozier, antral biopsy," are two segments of snyder soft tissue each measuring 0.4 cm in maximum dimension. The specimen is submitted entirely in cassette A1. B. Received in formalin labeled "greater curve ulcer biopsy," are multiple segments of snyder soft tissue measuring from 0.1 up to 0.3 cm in maximum dimension. The specimen is submitted entirely in cassette B1. (JPM; 11/16/16) INITIAL CPT CODE(S): A; 11862, 64338 B; 88933, 12376 Professional services performed by [facility] [place] [address] Technical services performed by [facility] at [address] [place] [address] [address], [place] [address]. SPECIMEN(S) RECEIVED: A.Antral biopsy B.Greater curvature ulcer biopsy CLINICAL HISTORY: GI bleed PATIENT: MARIEL DOZIRE /AGE: 8 1940 (Age: 75) PATIENT #: [id number] ALT CASE #: SPECIMEN COLLECTION DATE: 11/16/2016 SPECIMEN RECEIVED DATE: 11/16/2016 [facility] - [address] [place] [address] - PHONE: [phone] * * * END OF REPORT * * *
[2016-11-20] VITALS (8 sets, daily range): BP systolic 130–167; BP diastolic 57–99
[2016-11-20] MEDS: IV NORMAL SALINE 1000ML BAG 1,000 ML IV SCH (00:35)
[2016-11-20 05:11] LABS: BASO % 1 % (0-3); EOS % 7 % (0-3); HEMATOCRIT 26.3 % (39.0-53.0); HEMOGLOBIN 8.7 g/dL (13.0-17.5); LYMPH # 1.2 x10^3/uL (1.0-4.8); LYMPH % 17 % (24-48); MEAN CORPUSCULAR HEMOGLOBIN 30 pg (25-35); MEAN CORPUSCULAR HGB CONC 33 g/dL (31-37); MEAN CORPUSCULAR VOLUME 90 fL (79-100); MONO % 11 % (0-9); NEUT % 65 % (31-73); PLATELET COUNT 198 x10^3/uL (140-400); RED BLOOD COUNT 2.92 x10^6/uL (4.30-5.70); RED CELL DISTRIBUTION WIDTH 15.3 % (11.5-14.5)
[2016-11-20 05:46] LABS: ALBUMIN 2.2 g/dL (3.4-5.0); CALCIUM 8.2 mg/dL (8.5-10.1); CREATININE 1.7 mg/dL (0.7-1.3); GFR 39.6; PHOSPHORUS 2.9 mg/dL (2.6-4.7); POTASSIUM 3.8 mmol/L (3.5-5.1)
[2016-11-20] MEDS: SODIUM BICARBONATE 650 MG TABLET. PO SCH ×3 (08:05→21:21)
[2016-11-20] MEDS: METOPROLOL TART IMMED RELEASE 25 MG TABLET. PO SCH ×2 (08:06→21:21)
[2016-11-20] MEDS: PANTOPRAZOLE 40 MG TABLET.DR. PO SCH ×2 (08:06→16:47)
[2016-11-20] MEDS: amLODIPine BESYLATE 10 MG TABLET PO SCH (08:07)
[2016-11-20] MEDS: hydrALAZINE 25 MG TABLET PO SCH ×2 (08:07→21:21)
--- NOTE | 2016-11-20 11:33 | PDOC ---
Subjective: Subjective: "Can't eat." Says vomited in trash can this morning. Objective: Objective: Per RN - had GI soft diet today, no vomiting. Vital Signs: Vital Signs Date Time Temp Pulse Resp B/P (MAP) Pulse Ox O2 Delivery O2 Flow Rate FiO2 11/20/16 11:17 98.9 71 20 130/99 (109) 98 Room Air 98.9 Labs: Laboratory Tests Test 11/20/16 04:50 11/20/16 04:55 Magnesium Level 1.9 mg/dL White Blood Count 7.0 x10^3/uL Red Blood Count 2.92 x10^6/uL Hemoglobin 8.7 g/dL Hematocrit 26.3 % Mean Corpuscular Volume 90 fL Mean Corpuscular Hemoglobin 30 pg Mean Corpuscular Hemoglobin Concent 33 g/dL Red Cell Distribution Width 15.3 % Platelet Count 198 x10^3/uL Neutrophils (%) (Auto) 65 % Lymphocytes (%) (Auto) 17 % Monocytes (%) (Auto) 11 % Eosinophils (%) (Auto) 7 % Basophils (%) (Auto) 1 % Neutrophils # (Auto) 4.5 x10^3uL Lymphocytes # (Auto) 1.2 x10^3/uL Monocytes # (Auto) 0.8 x10^3/uL Eosinophils # (Auto) 0.5 x10^3/uL Basophils # (Auto) 0.0 x10^3/uL Sodium Level 141 mmol/L Potassium Level 3.8 mmol/L Chloride Level 110 mmol/L Carbon Dioxide Level 23 mmol/L Anion Gap 8 Blood Urea Nitrogen 14 mg/dL Creatinine 1.7 mg/dL Estimated GFR (Cockcroft-Gault) 39.6 Glucose Level 114 mg/dL Calcium Level 8.2 mg/dL Phosphorus Level 2.9 mg/dL Albumin 2.2 g/dL PE: GEN: NAD, up to chair ABD: soft, non-tender NEURO/PSYCH: appropriate OTHER: inspected trash can w/ RN, no emesis A/P: Vomiting, gastric ulcers, H. pylori -- Continue PO PPI, will discuss H. pylori treatment w/ Dr. Delacruz (probably add amoxicillin and clarithromycin) Says vomiting, not witnessed, no evidence. ?back off further on diet SUSAN MCNEIL Nov 20, 2016 11:33
[2016-11-20] MEDS ORDERED: FUROSEMIDE 40 MG/4 ML VIAL. IVP ONE (12:00)
--- NOTE | 2016-11-20 12:02 | PDOC ---
Renal-Progress Notes Subjective Notes Notes SOME SWELLING History of Present Illness Hx of present illness NO CHANGE Vitals Vitals Vital Signs Date Time Temp Pulse Resp B/P (MAP) Pulse Ox O2 Delivery O2 Flow Rate FiO2 11/20/16 11:17 98.9 71 20 130/99 (109) 98 Room Air 98.9 Weight Weight [ ] I.O. Intake and Output Intake and Output 11/20/16 07:00 Intake Total 1500 ml Output Total 0 ml Balance 1500 ml Intake Oral 500 ml IV Total 1000 ml Output Urine Total 0 ml # Voids 4 Labs Labs Laboratory Tests Test 11/20/16 04:50 11/20/16 04:55 Magnesium Level 1.9 mg/dL (1.8-2.4) White Blood Count 7.0 x10^3/uL (4.0-11.0) Red Blood Count 2.92 x10^6/uL (4.30-5.70) Hemoglobin 8.7 g/dL (13.0-17.5) Hematocrit 26.3 % (39.0-53.0) Mean Corpuscular Volume 90 fL (79-100) Mean Corpuscular Hemoglobin 30 pg (25-35) Mean Corpuscular Hemoglobin Concent 33 g/dL (31-37) Red Cell Distribution Width 15.3 % (11.5-14.5) Platelet Count 198 x10^3/uL (140-400) Neutrophils (%) (Auto) 65 % (31-73) Lymphocytes (%) (Auto) 17 % (24-48) Monocytes (%) (Auto) 11 % (0-9) Eosinophils (%) (Auto) 7 % (0-3) Basophils (%) (Auto) 1 % (0-3) Neutrophils # (Auto) 4.5 x10^3uL (1.8-7.7) Lymphocytes # (Auto) 1.2 x10^3/uL (1.0-4.8) Monocytes # (Auto) 0.8 x10^3/uL (0.0-1.1) Eosinophils # (Auto) 0.5 x10^3/uL (0.0-0.7) Basophils # (Auto) 0.0 x10^3/uL (0.0-0.2) Sodium Level 141 mmol/L (136-145) Potassium Level 3.8 mmol/L (3.5-5.1) Chloride Level 110 mmol/L (98-107) Carbon Dioxide Level 23 mmol/L (21-32) Anion Gap 8 (6-14) Blood Urea Nitrogen 14 mg/dL (8-26) Creatinine 1.7 mg/dL (0.7-1.3) Estimated GFR (Cockcroft-Gault) 39.6 Glucose Level 114 mg/dL (70-99) Calcium Level 8.2 mg/dL (8.5-10.1) Phosphorus Level 2.9 mg/dL (2.6-4.7) Albumin 2.2 g/dL (3.4-5.0) Micro Micro Microbiology 11/17/16 Blood Culture - Preliminary, Resulted NO GROWTH AFTER 2 DAYS 11/15/16 Urine Culture - Final, Complete 11/15/16 Urine Culture Result 1 (LATRICIA) - Final, Complete Review of Systems Constitutional: yes: no symptom reported Physical Exam General Appearance: no apparent distress Skin: warm Respiratory: decreased breath sounds Heart: S1S2, RRR Abdomen: soft, bowel sounds present Genitourinary: bladder flat Neurology: alert, oriented Assessment Assessment IMP SHANTANU-IMPROVING WITH CR OF 2.6 TO 1.7 PROB CKD STAGE 3-CR MAY BE AT BASELINE ANEMIA GI BLEED DUE TO GASTRIC ULCERS MET ACIDOSIS-BETTER HTN-STILL ELEVATED-BETTER LOW MAG-CORRECTED MILD HYPERVOLEMIA PLAN STOP IVF'S IV LASIX LABS IN AM YVONNE HARE MD Nov 20, 2016 12:02
--- NOTE | 2016-11-20 14:40 | PDOC ---
PROGRESS NOTES Chief Complaint Chief Complaint Chief complaint: Upper GI bleeding Assessment and plan Upper GI bleeding: status post 3 units of PRBC hemoglobin improved, status post EGD diagnosed with gastric ulcers, path pending Proximal A. fib A. fib, Acute kidney injury with chronic kidney disease: Encephalopathy acute: Resolved Acute blood loss anemia due to upper GI bleeding Hypertension not controlled hypomagnesemia plan: fu with renal, gi, card on metoprolol, increased amlodipine ivf dced, lasix x1 as per renal protonix bid gi soft diet back off to full liquid path neg for malignancy, but + h pylori, as per GI not abx for it dc abx replete Mag PTOT, SW for snf History of Present Illness History of Present Illness No fever, no chills, no chest pain Doing better as per nurse , has dysphagia, but denies to me Hb 7.5 up to 8.7 cR 1.7 Vitals Vitals Vital Signs Date Time Temp Pulse Resp B/P (MAP) Pulse Ox O2 Delivery O2 Flow Rate FiO2 11/20/16 11:17 98.9 71 20 130/99 (109) 98 Room Air 98.9 Physical Exam General: Alert, Cooperative, No acute distress Heart: Regular rate (Sinus tach), Normal S1, Normal S2, Other (3/6 systolic murmur to LLS border) Lungs: Clear Abdomen: Soft, Other (Epigastric area + tenderness) Extremities: No cyanosis, Other (trace LE edema) Skin: No breakdown, No significant lesion Labs LABS Laboratory Tests Test 11/20/16 04:50 11/20/16 04:55 Magnesium Level 1.9 mg/dL (1.8-2.4) White Blood Count 7.0 x10^3/uL (4.0-11.0) Red Blood Count 2.92 x10^6/uL (4.30-5.70) Hemoglobin 8.7 g/dL (13.0-17.5) Hematocrit 26.3 % (39.0-53.0) Mean Corpuscular Volume 90 fL (79-100) Mean Corpuscular Hemoglobin 30 pg (25-35) Mean Corpuscular Hemoglobin Concent 33 g/dL (31-37) Red Cell Distribution Width 15.3 % (11.5-14.5) Platelet Count 198 x10^3/uL (140-400) Neutrophils (%) (Auto) 65 % (31-73) Lymphocytes (%) (Auto) 17 % (24-48) Monocytes (%) (Auto) 11 % (0-9) Eosinophils (%) (Auto) 7 % (0-3) Basophils (%) (Auto) 1 % (0-3) Neutrophils # (Auto) 4.5 x10^3uL (1.8-7.7) Lymphocytes # (Auto) 1.2 x10^3/uL (1.0-4.8) Monocytes # (Auto) 0.8 x10^3/uL (0.0-1.1) Eosinophils # (Auto) 0.5 x10^3/uL (0.0-0.7) Basophils # (Auto) 0.0 x10^3/uL (0.0-0.2) Sodium Level 141 mmol/L (136-145) Potassium Level 3.8 mmol/L (3.5-5.1) Chloride Level 110 mmol/L (98-107) Carbon Dioxide Level 23 mmol/L (21-32) Anion Gap 8 (6-14) Blood Urea Nitrogen 14 mg/dL (8-26) Creatinine 1.7 mg/dL (0.7-1.3) Estimated GFR (Cockcroft-Gault) 39.6 Glucose Level 114 mg/dL (70-99) Calcium Level 8.2 mg/dL (8.5-10.1) Phosphorus Level 2.9 mg/dL (2.6-4.7) Albumin 2.2 g/dL (3.4-5.0) Review of Systems Review of Systems no fever, chills, sob or chest pain Assessment and Plan Assessmemt and Plan Problems Medical Problems: (1) Anemia Status: Acute (2) GI bleed Status: Acute (3) Metabolic encephalopathy Status: Acute Problems: Comment Review of Relevant I have reviewed the following items selin (where applicable) has been applied. Labs Laboratory Tests Test 11/19/16 05:30 11/19/16 05:35 11/20/16 04:50 11/20/16 04:55 Magnesium Level 1.7 mg/dL (1.8-2.4) 1.9 mg/dL (1.8-2.4) Sodium Level 143 mmol/L (136-145) 141 mmol/L (136-145) Potassium Level 3.8 mmol/L (3.5-5.1) 3.8 mmol/L (3.5-5.1) Chloride Level 112 mmol/L (98-107) 110 mmol/L (98-107) Carbon Dioxide Level 21 mmol/L (21-32) 23 mmol/L (21-32) Anion Gap 10 (6-14) 8 (6-14) Blood Urea Nitrogen 18 mg/dL (8-26) 14 mg/dL (8-26) Creatinine 1.8 mg/dL (0.7-1.3) 1.7 mg/dL (0.7-1.3) Estimated GFR (Cockcroft-Gault) 37.1 39.6 Glucose Level 111 mg/dL (70-99) 114 mg/dL (70-99) Calcium Level 7.9 mg/dL (8.5-10.1) 8.2 mg/dL (8.5-10.1) Phosphorus Level 2.7 mg/dL (2.6-4.7) 2.9 mg/dL (2.6-4.7) Albumin 2.4 g/dL (3.4-5.0) 2.2 g/dL (3.4-5.0) White Blood Count 7.0 x10^3/uL (4.0-11.0) Red Blood Count 2.92 x10^6/uL (4.30-5.70) Hemoglobin 8.7 g/dL (13.0-17.5) Hematocrit 26.3 % (39.0-53.0) Mean Corpuscular Volume 90 fL (79-100) Mean Corpuscular Hemoglobin 30 pg (25-35) Mean Corpuscular Hemoglobin Concent 33 g/dL (31-37) Red Cell Distribution Width 15.3 % (11.5-14.5) Platelet Count 198 x10^3/uL (140-400) Neutrophils (%) (Auto) 65 % (31-73) Lymphocytes (%) (Auto) 17 % (24-48) Monocytes (%) (Auto) 11 % (0-9) Eosinophils (%) (Auto) 7 % (0-3) Basophils (%) (Auto) 1 % (0-3) Neutrophils # (Auto) 4.5 x10^3uL (1.8-7.7) Lymphocytes # (Auto) 1.2 x10^3/uL (1.0-4.8) Monocytes # (Auto) 0.8 x10^3/uL (0.0-1.1) Eosinophils # (Auto) 0.5 x10^3/uL (0.0-0.7) Basophils # (Auto) 0.0 x10^3/uL (0.0-0.2) Laboratory Tests Test 11/20/16 04:50 11/20/16 04:55 Magnesium Level 1.9 mg/dL (1.8-2.4) White Blood Count 7.0 x10^3/uL (4.0-11.0) Red Blood Count 2.92 x10^6/uL (4.30-5.70) Hemoglobin 8.7 g/dL (13.0-17.5) Hematocrit 26.3 % (39.0-53.0) Mean Corpuscular Volume 90 fL (79-100) Mean Corpuscular Hemoglobin 30 pg (25-35) Mean Corpuscular Hemoglobin Concent 33 g/dL (31-37) Red Cell Distribution Width 15.3 % (11.5-14.5) Platelet Count 198 x10^3/uL (140-400) Neutrophils (%) (Auto) 65 % (31-73) Lymphocytes (%) (Auto) 17 % (24-48) Monocytes (%) (Auto) 11 % (0-9) Eosinophils (%) (Auto) 7 % (0-3) Basophils (%) (Auto) 1 % (0-3) Neutrophils # (Auto) 4.5 x10^3uL (1.8-7.7) Lymphocytes # (Auto) 1.2 x10^3/uL (1.0-4.8) Monocytes # (Auto) 0.8 x10^3/uL (0.0-1.1) Eosinophils # (Auto) 0.5 x10^3/uL (0.0-0.7) Basophils # (Auto) 0.0 x10^3/uL (0.0-0.2) Sodium Level 141 mmol/L (136-145) Potassium Level 3.8 mmol/L (3.5-5.1) Chloride Level 110 mmol/L (98-107) Carbon Dioxide Level 23 mmol/L (21-32) Anion Gap 8 (6-14) Blood Urea Nitrogen 14 mg/dL (8-26) Creatinine 1.7 mg/dL (0.7-1.3) Estimated GFR (Cockcroft-Gault) 39.6 Glucose Level 114 mg/dL (70-99) Calcium Level 8.2 mg/dL (8.5-10.1) Phosphorus Level 2.9 mg/dL (2.6-4.7) Albumin 2.2 g/dL (3.4-5.0) Microbiology 11/17/16 Blood Culture - Preliminary, Resulted NO GROWTH AFTER 3 DAYS 11/15/16 Urine Culture - Final, Complete 11/15/16 Urine Culture Result 1 (LATRICIA) - Final, Complete Medications Current Medications Sodium Chloride 1,000 ml @ 1,000 mls/hr 1X ONCE IV Last administered on 14:08; Start 11/15/16 at 14:00; Stop 11/15/16 at 14:59; Status DC Pantoprazole Sodium 80 mg/ Sodium Chloride 100 ml @ 10 mls/hr Q10H IV Last administered on 11/16/16 05:20; Start 11/15/16 at 16:00; Stop 11/16/16 at 14:13 ; Status DC Pantoprazole Sodium (Protonix Vial) 80 mg 1X ONCE IVP Last administered on 15:02; Start 11/15/16 at 15:30; Stop 11/15/16 at 15:31; Status DC Sodium Chloride 1,000 ml @ 100 mls/hr Q10H IV Last administered on 11/18/16 01:07; Start 11/15/16 at 16:15; Stop 11/18/16 at 07:50; Status DC Ceftriaxone Sodium 1 gm/ Sodium Chloride 50 ml @ 100 mls/hr Q24H IV Last administered on 11/18/16 21:48; Start 11/15/16 at 21:00; Stop 11/19/16 at 09:27 ; Status DC Calcium Gluconate (Calcium Gluconate) 1,000 mg 1X ONCE IVP Last administered on 11/16/16 19:01; Start 11/16/16 at 09:30; Stop 11/16/16 at 09:36; Status DC Magnesium Sulfate/ Dextrose 50 ml @ 25 mls/hr PRN DAILY PRN IV for Mag < 1.7 on am labs; Start 11/16/16 at 11:00 Sodium Chloride 1,000 ml @ 125 mls/hr Q8H IV Last administered on 11/17/16 03 :00; Start 11/16/16 at 11:00; Stop 11/17/16 at 05:50; Status DC Propofol 20 ml @ As Directed STK-MED ONCE IV ; Start 11/16/16 at 13:41; Stop at 13:54; Status DC Lidocaine HCl (Lidocaine Pf 2% Vial) 5 ml STK-MED ONCE .ROUTE ; Start 11/16/16 at 13:41; Stop 11/16/16 at 13:54; Status DC Pantoprazole Sodium (Protonix) 40 mg BIDAC PO Last administered on 11/20/16 08 :06; Start 11/16/16 at 16:30 Hydralazine HCl (Apresoline) 10 mg PRN Q4HRS PRN IVP ELEVATED BP, SEE COMMENTS Last administered on 11/19/16 05:54; Start 11/16/16 at 18:45 Insulin Aspart (NovoLOG) 0-5 UNITS TIDWMEALS SQ ; Start 11/17/16 at 08:00; Stop 11/18/16 at 11:16; Status DC Dextrose (Dextrose 50%-Water Syringe) 12.5 gm PRN Q15MIN PRN IV SEE COMMENTS; Start 11/16/16 at 18:45 Calcium Gluconate (Calcium Gluconate) 1,000 mg STK-MED ONCE .ROUTE ; Start 11/16 at 18:53; Stop 11/16/16 at 18:54; Status DC Magnesium Sulfate/ Dextrose 50 ml @ 25 mls/hr 1X ONCE IV ; Start 11/17/16 at 09 :00; Stop 11/17/16 at 09:00; Status DC Magnesium Sulfate/ Dextrose 100 ml @ 100 mls/hr 1X ONCE IV Last administered on 11/17/16 09:04; Start 11/17/16 at 09:00; Stop 11/17/16 at 09:59; Status DC Metoprolol Tartrate (Lopressor) 5 mg PRN Q6HRS PRN IVP ELEVATED BP, SEE COMMENTS Last administered on 11/17/16 11:46; Start 11/17/16 at 11:15 Metoprolol Tartrate (Lopressor) 12.5 mg BID PO Last administered on 11/20/16 08:06; Start 11/17/16 at 21:00 Amlodipine Besylate (Norvasc) 5 mg DAILY PO Last administered on 11/19/16 08: 00; Start 11/18/16 at 09:00; Stop 11/19/16 at 11:08; Status DC Sodium Bicarbonate 75 meq/Potassium Acetate 20 meq/ Sodium Chloride 1,085 ml @ 100 mls/hr [id number] PRN IV .; Start 11/18/16 at 08:00; Stop 11/18/16 at 19:00; Status Cancel Sodium Bicarbonate 75 meq/Potassium Acetate 20 meq/ Sodium Chloride 1,085 ml @ 100 mls/hr [id number] IV ; Start 11/18/16 at 08:45; Stop 11/18/16 at 08:45; Status DC Sodium Bicarbonate 75 meq/Potassium Acetate 20 meq/ Sodium Chloride 1,085 ml @ 100 mls/hr [id number] IV Last administered on 11/18/16 09:08; Start 11/18/16 at 09:30; Stop 11/18/16 at 10:09; Status DC Hydralazine HCl (Apresoline) 25 mg BID PO Last administered on 11/20/16 08:07 ; Start 11/18/16 at 21:00 Sodium Bicarbonate (Sodium Bicarbonate) 1,300 mg TID PO Last administered on 08:05; Start 11/18/16 at 14:00 Magnesium Sulfate/ Dextrose 50 ml @ 25 mls/hr 1X ONCE IV Last administered on 11/19/16 08:30; Start 11/19/16 at 08:30; Stop 11/19/16 at 10:29; Status DC Ondansetron HCl (Zofran) 4 mg PRN Q6HRS PRN IV NAUSEA/VOMITING Last administered on 11/19/16 10:22; Start 11/19/16 at 10:15; Stop 11/19/16 at 16:48 ; Status DC Sodium Chloride 1,000 ml @ 75 mls/hr [id number] IV Last administered on 11:15; Start 11/19/16 at 11:15; Stop 11/20/16 at 11:39; Status DC Amlodipine Besylate (Norvasc) 10 mg DAILY PO Last administered on 11/20/16 08: 07; Start 11/20/16 at 09:00 Amlodipine Besylate (Norvasc) 5 mg 1X ONCE PO Last administered on 11/19/16 13:07; Start 11/19/16 at 11:30; Stop 11/19/16 at 11:31; Status DC Acetaminophen (Tylenol) 650 mg PRN Q6HRS PRN PO FEVER; Start 11/19/16 at 13:00 Ondansetron HCl (Zofran) 4 mg PRN Q6HRS PRN IV NAUSEA/VOMITING; Start 11/19/16 at 13:00 Morphine Sulfate 2 mg PRN Q2HR PRN IV PAIN; Start 11/19/16 at 13:00 Tramadol HCl (Ultram) 50 mg PRN Q6HRS PRN PO PAIN; Start 11/19/16 at 13:00 Hydralazine HCl (Apresoline) 10 mg PRN Q4HRS PRN IVP ELEVATED BP, SEE COMMENTS ; Start 11/19/16 at 13:00; Stop 11/19/16 at 16:48; Status DC Docusate Sodium (Colace) 100 mg PRN DAILY PRN PO CONSTIPATION; Start 11/19/16 at 13:00 Furosemide (Lasix) 40 mg 1X ONCE IVP Last administered on 11/20/16 12:17; Start 11/20/16 at 12:00; Stop 11/20/16 at 12:01; Status DC Active Scripts Active Reported Levemir (Insulin Detemir) 100 Unit/1 Ml Vial 10 Unit SQ QHS Allopurinol 100 Mg Tablet 100 Mg PO DAILY Bystolic (Nebivolol) 5 Mg Tablet 5 Mg PO BID Vitals/I & O Vital Sign - Last 24 Hours 11/19/16 11/19/16 11/19/16 11/19/16 16:04 20:00 20:00 20:59 Temp 98.6 98.5 98.6 98.5 Pulse 84 66 72 Resp 17 16 B/P (MAP) 107/66 (80) 139/60 (86) 158/99 Pulse Ox 96 97 O2 Delivery Room Air Room Air Room Air 11/19/16 11/20/16 11/20/16 11/20/16 21:00 00:41 04:00 06:03 Temp 99.9 98.7 98.6 99.9 98.7 98.6 Pulse 72 70 66 68 Resp 20 17 18 B/P (MAP) 158/99 136/72 (93) 140/57 (84) 162/72 (102) Pulse Ox 97 98 96 O2 Delivery Room Air Room Air Room Air 11/20/16 11/20/16 11/20/16 11/20/16 07:28 08:00 08:06 08:07 Temp 99.2 99.2 Pulse 68 68 68 Resp 20 B/P (MAP) 165/77 (106) 165/77 165/77 Pulse Ox 96 O2 Delivery Room Air Room Air 11/20/16 11/20/16 08:07 11:17 Temp 98.9 98.9 Pulse 68 71 Resp 20 B/P (MAP) 165/77 130/99 (109) Pulse Ox 98 O2 Delivery Room Air Intake and Output 11/19/16 11/19/16 11/20/16 15:00 23:00 07:00 Intake Total 805 ml 695 ml Output Total 0 ml Balance 805 ml 695 ml YASIR MARIE MD Nov 20, 2016 14:40
[2016-11-21 03:10] VITALS: BP 125/57
[2016-11-21 04:49] LABS: ALBUMIN 2.2 g/dL (3.4-5.0); CREATININE 1.8 mg/dL (0.7-1.3); GFR 37.1; PHOSPHORUS 3.1 mg/dL (2.6-4.7)
[2016-11-21 07:00] VITALS: BP 116/58
[2016-11-21] MEDS: hydrALAZINE 25 MG TABLET PO SCH ×2 (08:46→22:18)
[2016-11-21] MEDS: amLODIPine BESYLATE 10 MG TABLET PO SCH (08:46)
[2016-11-21] MEDS: PANTOPRAZOLE 40 MG TABLET.DR. PO SCH ×2 (08:46→14:49)
[2016-11-21] MEDS: SODIUM BICARBONATE 650 MG TABLET. PO SCH ×3 (08:46→22:17)
[2016-11-21] MEDS: METOPROLOL TART IMMED RELEASE 25 MG TABLET. PO SCH ×2 (08:48→22:18)
--- NOTE | 2016-11-21 09:56 | PDOC ---
Subjective: Subjective: Says "stomach is sick" but "better." Objective: Vital Signs: Vital Signs Date Time Temp Pulse Resp B/P (MAP) Pulse Ox O2 Delivery O2 Flow Rate FiO2 11/21/16 08:56 Room Air 11/21/16 08:48 76 116/58 11/21/16 07:00 98.6 18 95 98.6 Labs: Laboratory Tests Test 11/21/16 03:15 Sodium Level 138 mmol/L Potassium Level 5.0 mmol/L Chloride Level 106 mmol/L Carbon Dioxide Level 23 mmol/L Anion Gap 9 Blood Urea Nitrogen 14 mg/dL Creatinine 1.8 mg/dL Estimated GFR (Cockcroft-Gault) 37.1 Glucose Level 121 mg/dL Calcium Level 8.0 mg/dL Phosphorus Level 3.1 mg/dL Magnesium Level 1.9 mg/dL Albumin 2.2 g/dL PE: GEN: NAD, walks slowly from restroom w/ walker w/ help of RN ABD: S/ND/NT NEURO/PSYCH: A & O 3 A/P: Decreased appetite Gastric ulcers, H. pylori -- Slowly better, tolerating full liquids. Chronic PPI for H. pylori. SUSAN MCNEIL Nov 21, 2016 09:55
[2016-11-21 10:55] VITALS: BP 124/59
[2016-11-21 11:17] LABS: BASO % 1 % (0-3); EOS % 8 % (0-3); HEMATOCRIT 27.6 % (39.0-53.0); HEMOGLOBIN 9.4 g/dL (13.0-17.5); LYMPH # 1.1 x10^3/uL (1.0-4.8); LYMPH % 16 % (24-48); MEAN CORPUSCULAR HEMOGLOBIN 31 pg (25-35); MEAN CORPUSCULAR HGB CONC 34 g/dL (31-37); MEAN CORPUSCULAR VOLUME 90 fL (79-100); MONO % 10 % (0-9); NEUT % 66 % (31-73); PLATELET COUNT 216 x10^3/uL (140-400); RED BLOOD COUNT 3.06 x10^6/uL (4.30-5.70); RED CELL DISTRIBUTION WIDTH 14.9 % (11.5-14.5); WHITE BLOOD COUNT 7.1 x10^3/uL (4.0-11.0)
--- NOTE | 2016-11-21 13:19 | PDOC ---
PROGRESS NOTES Chief Complaint Chief Complaint Chief complaint: Upper GI bleeding Assessment and plan Upper GI bleeding: status post 3 units of PRBC hemoglobin improved, status post EGD diagnosed with gastric ulcers Proximal A. fib A. fib, Acute kidney injury with chronic kidney disease: Encephalopathy acute: Resolved Acute blood loss anemia due to upper GI bleeding Hypertension not controlled hypomagnesemia plan: fu with renal, gi, card on metoprolol, increased amlodipine protonix bid gi soft diet back off to full liquid 11/20 path neg for malignancy, but + h pylori, as per GI no abx for it replete Mag PTOT, SW for snf hope dc tmr History of Present Illness History of Present Illness No fever, no chills, no chest pain Doing better, ok with full liquid diet Hb 7.5 up to 9 cR 1.7 Vitals Vitals Vital Signs Date Time Temp Pulse Resp B/P (MAP) Pulse Ox O2 Delivery O2 Flow Rate FiO2 11/21/16 10:55 97.8 73 18 124/59 (80) 97 Room Air 97.8 Physical Exam General: Alert, Cooperative, No acute distress Heart: Regular rate (Sinus tach), Normal S1, Normal S2, Other (3/6 systolic murmur to LLS border) Lungs: Clear Abdomen: Soft, Other (Epigastric area + tenderness) Extremities: No cyanosis, Other (trace LE edema) Skin: No breakdown, No significant lesion Labs LABS Laboratory Tests Test 11/21/16 03:15 11/21/16 11:00 Sodium Level 138 mmol/L (136-145) Potassium Level 5.0 mmol/L (3.5-5.1) Chloride Level 106 mmol/L (98-107) Carbon Dioxide Level 23 mmol/L (21-32) Anion Gap 9 (6-14) Blood Urea Nitrogen 14 mg/dL (8-26) Creatinine 1.8 mg/dL (0.7-1.3) Estimated GFR (Cockcroft-Gault) 37.1 Glucose Level 121 mg/dL (70-99) Calcium Level 8.0 mg/dL (8.5-10.1) Phosphorus Level 3.1 mg/dL (2.6-4.7) Magnesium Level 1.9 mg/dL (1.8-2.4) Albumin 2.2 g/dL (3.4-5.0) White Blood Count 7.1 x10^3/uL (4.0-11.0) Red Blood Count 3.06 x10^6/uL (4.30-5.70) Hemoglobin 9.4 g/dL (13.0-17.5) Hematocrit 27.6 % (39.0-53.0) Mean Corpuscular Volume 90 fL (79-100) Mean Corpuscular Hemoglobin 31 pg (25-35) Mean Corpuscular Hemoglobin Concent 34 g/dL (31-37) Red Cell Distribution Width 14.9 % (11.5-14.5) Platelet Count 216 x10^3/uL (140-400) Neutrophils (%) (Auto) 66 % (31-73) Lymphocytes (%) (Auto) 16 % (24-48) Monocytes (%) (Auto) 10 % (0-9) Eosinophils (%) (Auto) 8 % (0-3) Basophils (%) (Auto) 1 % (0-3) Neutrophils # (Auto) 4.7 x10^3uL (1.8-7.7) Lymphocytes # (Auto) 1.1 x10^3/uL (1.0-4.8) Monocytes # (Auto) 0.7 x10^3/uL (0.0-1.1) Eosinophils # (Auto) 0.6 x10^3/uL (0.0-0.7) Basophils # (Auto) 0.0 x10^3/uL (0.0-0.2) Review of Systems Review of Systems no fever, chills, sob or chest pain Assessment and Plan Assessmemt and Plan Problems Medical Problems: (1) Anemia Status: Acute (2) GI bleed Status: Acute (3) Metabolic encephalopathy Status: Acute Problems: Comment Review of Relevant I have reviewed the following items selin (where applicable) has been applied. Labs Laboratory Tests Test 11/20/16 04:50 11/20/16 04:55 11/21/16 03:15 11/21/16 11:00 Magnesium Level 1.9 mg/dL (1.8-2.4) 1.9 mg/dL (1.8-2.4) White Blood Count 7.0 x10^3/uL (4.0-11.0) 7.1 x10^3/uL (4.0-11.0) Red Blood Count 2.92 x10^6/uL (4.30-5.70) 3.06 x10^6/uL (4.30-5.70) Hemoglobin 8.7 g/dL (13.0-17.5) 9.4 g/dL (13.0-17.5) Hematocrit 26.3 % (39.0-53.0) 27.6 % (39.0-53.0) Mean Corpuscular Volume 90 fL (79-100) 90 fL (79-100) Mean Corpuscular Hemoglobin 30 pg (25-35) 31 pg (25-35) Mean Corpuscular Hemoglobin Concent 33 g/dL (31-37) 34 g/dL (31-37) Red Cell Distribution Width 15.3 % (11.5-14.5) 14.9 % (11.5-14.5) Platelet Count 198 x10^3/uL (140-400) 216 x10^3/uL (140-400) Neutrophils (%) (Auto) 65 % (31-73) 66 % (31-73) Lymphocytes (%) (Auto) 17 % (24-48) 16 % (24-48) Monocytes (%) (Auto) 11 % (0-9) 10 % (0-9) Eosinophils (%) (Auto) 7 % (0-3) 8 % (0-3) Basophils (%) (Auto) 1 % (0-3) 1 % (0-3) Neutrophils # (Auto) 4.5 x10^3uL (1.8-7.7) 4.7 x10^3uL (1.8-7.7) Lymphocytes # (Auto) 1.2 x10^3/uL (1.0-4.8) 1.1 x10^3/uL (1.0-4.8) Monocytes # (Auto) 0.8 x10^3/uL (0.0-1.1) 0.7 x10^3/uL (0.0-1.1) Eosinophils # (Auto) 0.5 x10^3/uL (0.0-0.7) 0.6 x10^3/uL (0.0-0.7) Basophils # (Auto) 0.0 x10^3/uL (0.0-0.2) 0.0 x10^3/uL (0.0-0.2) Sodium Level 141 mmol/L (136-145) 138 mmol/L (136-145) Potassium Level 3.8 mmol/L (3.5-5.1) 5.0 mmol/L (3.5-5.1) Chloride Level 110 mmol/L (98-107) 106 mmol/L (98-107) Carbon Dioxide Level 23 mmol/L (21-32) 23 mmol/L (21-32) Anion Gap 8 (6-14) 9 (6-14) Blood Urea Nitrogen 14 mg/dL (8-26) 14 mg/dL (8-26) Creatinine 1.7 mg/dL (0.7-1.3) 1.8 mg/dL (0.7-1.3) Estimated GFR (Cockcroft-Gault) 39.6 37.1 Glucose Level 114 mg/dL (70-99) 121 mg/dL (70-99) Calcium Level 8.2 mg/dL (8.5-10.1) 8.0 mg/dL (8.5-10.1) Phosphorus Level 2.9 mg/dL (2.6-4.7) 3.1 mg/dL (2.6-4.7) Albumin 2.2 g/dL (3.4-5.0) 2.2 g/dL (3.4-5.0) Laboratory Tests Test 11/21/16 03:15 11/21/16 11:00 Sodium Level 138 mmol/L (136-145) Potassium Level 5.0 mmol/L (3.5-5.1) Chloride Level 106 mmol/L (98-107) Carbon Dioxide Level 23 mmol/L (21-32) Anion Gap 9 (6-14) Blood Urea Nitrogen 14 mg/dL (8-26) Creatinine 1.8 mg/dL (0.7-1.3) Estimated GFR (Cockcroft-Gault) 37.1 Glucose Level 121 mg/dL (70-99) Calcium Level 8.0 mg/dL (8.5-10.1) Phosphorus Level 3.1 mg/dL (2.6-4.7) Magnesium Level 1.9 mg/dL (1.8-2.4) Albumin 2.2 g/dL (3.4-5.0) White Blood Count 7.1 x10^3/uL (4.0-11.0) Red Blood Count 3.06 x10^6/uL (4.30-5.70) Hemoglobin 9.4 g/dL (13.0-17.5) Hematocrit 27.6 % (39.0-53.0) Mean Corpuscular Volume 90 fL (79-100) Mean Corpuscular Hemoglobin 31 pg (25-35) Mean Corpuscular Hemoglobin Concent 34 g/dL (31-37) Red Cell Distribution Width 14.9 % (11.5-14.5) Platelet Count 216 x10^3/uL (140-400) Neutrophils (%) (Auto) 66 % (31-73) Lymphocytes (%) (Auto) 16 % (24-48) Monocytes (%) (Auto) 10 % (0-9) Eosinophils (%) (Auto) 8 % (0-3) Basophils (%) (Auto) 1 % (0-3) Neutrophils # (Auto) 4.7 x10^3uL (1.8-7.7) Lymphocytes # (Auto) 1.1 x10^3/uL (1.0-4.8) Monocytes # (Auto) 0.7 x10^3/uL (0.0-1.1) Eosinophils # (Auto) 0.6 x10^3/uL (0.0-0.7) Basophils # (Auto) 0.0 x10^3/uL (0.0-0.2) Microbiology 11/17/16 Blood Culture - Preliminary, Resulted NO GROWTH AFTER 4 DAYS 11/15/16 Urine Culture - Final, Complete 11/15/16 Urine Culture Result 1 (LATRICIA) - Final, Complete Medications Current Medications Sodium Chloride 1,000 ml @ 1,000 mls/hr 1X ONCE IV Last administered on 14:08; Start 11/15/16 at 14:00; Stop 11/15/16 at 14:59; Status DC Pantoprazole Sodium 80 mg/ Sodium Chloride 100 ml @ 10 mls/hr Q10H IV Last administered on 11/16/16 05:20; Start 11/15/16 at 16:00; Stop 11/16/16 at 14:13 ; Status DC Pantoprazole Sodium (Protonix Vial) 80 mg 1X ONCE IVP Last administered on 15:02; Start 11/15/16 at 15:30; Stop 11/15/16 at 15:31; Status DC Sodium Chloride 1,000 ml @ 100 mls/hr Q10H IV Last administered on 11/18/16 01:07; Start 11/15/16 at 16:15; Stop 11/18/16 at 07:50; Status DC Ceftriaxone Sodium 1 gm/ Sodium Chloride 50 ml @ 100 mls/hr Q24H IV Last administered on 11/18/16 21:48; Start 11/15/16 at 21:00; Stop 11/19/16 at 09:27 ; Status DC Calcium Gluconate (Calcium Gluconate) 1,000 mg 1X ONCE IVP Last administered on 11/16/16 19:01; Start 11/16/16 at 09:30; Stop 11/16/16 at 09:36; Status DC Magnesium Sulfate/ Dextrose 50 ml @ 25 mls/hr PRN DAILY PRN IV for Mag < 1.7 on am labs; Start 11/16/16 at 11:00 Sodium Chloride 1,000 ml @ 125 mls/hr Q8H IV Last administered on 11/17/16 03 :00; Start 11/16/16 at 11:00; Stop 11/17/16 at 05:50; Status DC Propofol 20 ml @ As Directed STK-MED ONCE IV ; Start 11/16/16 at 13:41; Stop at 13:54; Status DC Lidocaine HCl (Lidocaine Pf 2% Vial) 5 ml STK-MED ONCE .ROUTE ; Start 11/16/16 at 13:41; Stop 11/16/16 at 13:54; Status DC Pantoprazole Sodium (Protonix) 40 mg BIDAC PO Last administered on 11/21/16 08 :46; Start 11/16/16 at 16:30 Hydralazine HCl (Apresoline) 10 mg PRN Q4HRS PRN IVP ELEVATED BP, SEE COMMENTS Last administered on 11/19/16 05:54; Start 11/16/16 at 18:45 Insulin Aspart (NovoLOG) 0-5 UNITS TIDWMEALS SQ ; Start 11/17/16 at 08:00; Stop 11/18/16 at 11:16; Status DC Dextrose (Dextrose 50%-Water Syringe) 12.5 gm PRN Q15MIN PRN IV SEE COMMENTS; Start 11/16/16 at 18:45 Calcium Gluconate (Calcium Gluconate) 1,000 mg STK-MED ONCE .ROUTE ; Start 11/16 at 18:53; Stop 11/16/16 at 18:54; Status DC Magnesium Sulfate/ Dextrose 50 ml @ 25 mls/hr 1X ONCE IV ; Start 11/17/16 at 09 :00; Stop 11/17/16 at 09:00; Status DC Magnesium Sulfate/ Dextrose 100 ml @ 100 mls/hr 1X ONCE IV Last administered on 11/17/16 09:04; Start 11/17/16 at 09:00; Stop 11/17/16 at 09:59; Status DC Metoprolol Tartrate (Lopressor) 5 mg PRN Q6HRS PRN IVP ELEVATED BP, SEE COMMENTS Last administered on 11/17/16 11:46; Start 11/17/16 at 11:15 Metoprolol Tartrate (Lopressor) 12.5 mg BID PO Last administered on 11/21/16 08:48; Start 11/17/16 at 21:00 Amlodipine Besylate (Norvasc) 5 mg DAILY PO Last administered on 11/19/16 08: 00; Start 11/18/16 at 09:00; Stop 11/19/16 at 11:08; Status DC Sodium Bicarbonate 75 meq/Potassium Acetate 20 meq/ Sodium Chloride 1,085 ml @ 100 mls/hr [id number] PRN IV .; Start 11/18/16 at 08:00; Stop 11/18/16 at 19:00; Status Cancel Sodium Bicarbonate 75 meq/Potassium Acetate 20 meq/ Sodium Chloride 1,085 ml @ 100 mls/hr [id number] IV ; Start 11/18/16 at 08:45; Stop 11/18/16 at 08:45; Status DC Sodium Bicarbonate 75 meq/Potassium Acetate 20 meq/ Sodium Chloride 1,085 ml @ 100 mls/hr [id number] IV Last administered on 11/18/16 09:08; Start 11/18/16 at 09:30; Stop 11/18/16 at 10:09; Status DC Hydralazine HCl (Apresoline) 25 mg BID PO Last administered on 11/21/16 08:46 ; Start 11/18/16 at 21:00 Sodium Bicarbonate (Sodium Bicarbonate) 1,300 mg TID PO Last administered on 08:46; Start 11/18/16 at 14:00 Magnesium Sulfate/ Dextrose 50 ml @ 25 mls/hr 1X ONCE IV Last administered on 11/19/16 08:30; Start 11/19/16 at 08:30; Stop 11/19/16 at 10:29; Status DC Ondansetron HCl (Zofran) 4 mg PRN Q6HRS PRN IV NAUSEA/VOMITING Last administered on 11/19/16 10:22; Start 11/19/16 at 10:15; Stop 11/19/16 at 16:48 ; Status DC Sodium Chloride 1,000 ml @ 75 mls/hr [id number] IV Last administered on 11:15; Start 11/19/16 at 11:15; Stop 11/20/16 at 11:39; Status DC Amlodipine Besylate (Norvasc) 10 mg DAILY PO Last administered on 11/21/16 08: 46; Start 11/20/16 at 09:00 Amlodipine Besylate (Norvasc) 5 mg 1X ONCE PO Last administered on 11/19/16 13:07; Start 11/19/16 at 11:30; Stop 11/19/16 at 11:31; Status DC Acetaminophen (Tylenol) 650 mg PRN Q6HRS PRN PO FEVER; Start 11/19/16 at 13:00 Ondansetron HCl (Zofran) 4 mg PRN Q6HRS PRN IV NAUSEA/VOMITING; Start 11/19/16 at 13:00 Morphine Sulfate 2 mg PRN Q2HR PRN IV PAIN; Start 11/19/16 at 13:00 Tramadol HCl (Ultram) 50 mg PRN Q6HRS PRN PO PAIN; Start 11/19/16 at 13:00 Hydralazine HCl (Apresoline) 10 mg PRN Q4HRS PRN IVP ELEVATED BP, SEE COMMENTS ; Start 11/19/16 at 13:00; Stop 11/19/16 at 16:48; Status DC Docusate Sodium (Colace) 100 mg PRN DAILY PRN PO CONSTIPATION; Start 11/19/16 at 13:00 Furosemide (Lasix) 40 mg 1X ONCE IVP Last administered on 11/20/16t 12:17; Start 11/20/16 at 12:00; Stop 11/20/16 at 12:01; Status DC Active Scripts Active Reported Levemir (Insulin Detemir) 100 Unit/1 Ml Vial 10 Unit SQ QHS Allopurinol 100 Mg Tablet 100 Mg PO DAILY Bystolic (Nebivolol) 5 Mg Tablet 5 Mg PO BID Vitals/I & O Vital Sign - Last 24 Hours 11/20/16 11/20/16 11/20/16 11/20/16 15:20 19:10 20:00 21:21 Temp 98.8 97.5 98.8 97.5 Pulse 73 90 Resp 20 18 B/P (MAP) 139/69 (92) 149/69 (95) 149/69 Pulse Ox 95 96 O2 Delivery Room Air Room Air Room Air 11/20/16 11/20/16 11/21/16 11/21/16 21:21 23:10 03:10 07:00 Temp 98.6 98.4 98.6 98.6 98.4 98.6 Pulse 85 79 76 Resp 20 18 18 B/P (MAP) 149/69 167/70 (102) 125/57 (79) 116/58 (77) Pulse Ox 96 97 95 O2 Delivery Room Air Room Air Room Air 11/21/16 11/21/16 11/21/16 11/21/16 08:46 08:46 08:48 08:56 Pulse 76 76 76 B/P (MAP) 116/58 116/58 116/58 O2 Delivery Room Air 11/21/16 10:55 Temp 97.8 97.8 Pulse 73 Resp 18 B/P (MAP) 124/59 (80) Pulse Ox 97 O2 Delivery Room Air Intake and Output 11/20/16 11/20/16 11/21/16 14:59 22:59 06:59 Intake Total 100 ml Output Total 150 ml 100 ml 200 ml Balance -150 ml -100 ml -100 ml YASIR MARIE MD Nov 21, 2016 13:19
--- NOTE | 2016-11-21 14:47 | PDOC ---
Renal-Progress Notes Subjective Notes Notes SOME ABD PAIN History of Present Illness Hx of present illness STABLE Vitals Vitals Vital Signs Date Time Temp Pulse Resp B/P (MAP) Pulse Ox O2 Delivery O2 Flow Rate FiO2 11/21/16 10:55 97.8 73 18 124/59 (80) 97 Room Air 97.8 Weight Weight [ ] I.O. Intake and Output Intake and Output 11/21/16 07:00 Intake Total 100 ml Output Total 450 ml Balance -350 ml Intake Oral 100 ml Output Urine Total 450 ml Labs Labs Laboratory Tests Test 11/21/16 03:15 11/21/16 11:00 Sodium Level 138 mmol/L (136-145) Potassium Level 5.0 mmol/L (3.5-5.1) Chloride Level 106 mmol/L (98-107) Carbon Dioxide Level 23 mmol/L (21-32) Anion Gap 9 (6-14) Blood Urea Nitrogen 14 mg/dL (8-26) Creatinine 1.8 mg/dL (0.7-1.3) Estimated GFR (Cockcroft-Gault) 37.1 Glucose Level 121 mg/dL (70-99) Calcium Level 8.0 mg/dL (8.5-10.1) Phosphorus Level 3.1 mg/dL (2.6-4.7) Magnesium Level 1.9 mg/dL (1.8-2.4) Albumin 2.2 g/dL (3.4-5.0) White Blood Count 7.1 x10^3/uL (4.0-11.0) Red Blood Count 3.06 x10^6/uL (4.30-5.70) Hemoglobin 9.4 g/dL (13.0-17.5) Hematocrit 27.6 % (39.0-53.0) Mean Corpuscular Volume 90 fL (79-100) Mean Corpuscular Hemoglobin 31 pg (25-35) Mean Corpuscular Hemoglobin Concent 34 g/dL (31-37) Red Cell Distribution Width 14.9 % (11.5-14.5) Platelet Count 216 x10^3/uL (140-400) Neutrophils (%) (Auto) 66 % (31-73) Lymphocytes (%) (Auto) 16 % (24-48) Monocytes (%) (Auto) 10 % (0-9) Eosinophils (%) (Auto) 8 % (0-3) Basophils (%) (Auto) 1 % (0-3) Neutrophils # (Auto) 4.7 x10^3uL (1.8-7.7) Lymphocytes # (Auto) 1.1 x10^3/uL (1.0-4.8) Monocytes # (Auto) 0.7 x10^3/uL (0.0-1.1) Eosinophils # (Auto) 0.6 x10^3/uL (0.0-0.7) Basophils # (Auto) 0.0 x10^3/uL (0.0-0.2) Micro Micro Microbiology 11/17/16 Blood Culture - Preliminary, Resulted NO GROWTH AFTER 4 DAYS 11/15/16 Urine Culture - Final, Complete 11/15/16 Urine Culture Result 1 (LATRICIA) - Final, Complete Review of Systems Constitutional: yes: no symptom reported Physical Exam General Appearance: no apparent distress Skin: warm Respiratory: decreased breath sounds Heart: S1S2, RRR Abdomen: soft, bowel sounds present Genitourinary: bladder flat Neurology: alert, oriented Assessment Assessment IMP SHANTANU-IMPROVING WITH CR OF 2.6 TO 1.8 PROB CKD STAGE 3-CR MAY BE AT BASELINE ANEMIA GI BLEED DUE TO GASTRIC ULCERS-H PYLORI MET ACIDOSIS-BETTER HTN-STILL ELEVATED-BETTER LOW MAG-CORRECTED MILD HYPERVOLEMIA PLAN ENC PO TOLERATED MAY NEED SOME DIURETICS SOON LABS IN AM YVONEN HARE MD Nov 21, 2016 14:47
[2016-11-21 14:48] VITALS: BP 127/62
[2016-11-21 19:05] VITALS: BP 152/63
[2016-11-21 23:10] VITALS: BP 115/54
[2016-11-22 03:30] VITALS: BP 142/62
[2016-11-22 05:42] LABS: ALBUMIN 2.2 g/dL (3.4-5.0); CALCIUM 7.9 mg/dL (8.5-10.1); CREATININE 1.9 mg/dL (0.7-1.3); GFR 34.8; PHOSPHORUS 2.9 mg/dL (2.6-4.7); POTASSIUM 3.7 mmol/L (3.5-5.1)
[2016-11-22] MEDS: PANTOPRAZOLE 40 MG TABLET.DR. PO SCH ×2 (06:46→17:14)
[2016-11-22 07:00] VITALS: BP 132/65
[2016-11-22] MEDS: SODIUM BICARBONATE 650 MG TABLET. PO SCH ×3 (08:42→20:25)
[2016-11-22] MEDS: METOPROLOL TART IMMED RELEASE 25 MG TABLET. PO SCH ×2 (08:43→20:26)
[2016-11-22] MEDS: amLODIPine BESYLATE 10 MG TABLET PO SCH (08:45)
[2016-11-22] MEDS: hydrALAZINE 25 MG TABLET PO SCH ×2 (08:45→20:26)
--- NOTE | 2016-11-22 10:13 | PDOC ---
Subjective: Subjective: Denies vomiting, tolerating breakfast, feels weak. Doesn't want to advance diet. Objective: Objective: D/w RN - no GI concerns. Vital Signs: Vital Signs Date Time Temp Pulse Resp B/P (MAP) Pulse Ox O2 Delivery O2 Flow Rate FiO2 11/22/16 08:43 87 120/58 11/22/16 07:39 Room Air 11/22/16 07:00 99.3 20 90 99.3 11/21/16 19:30 10.0 Labs: Laboratory Tests Test 11/21/16 11:00 11/22/16 04:50 White Blood Count 7.1 x10^3/uL Red Blood Count 3.06 x10^6/uL Hemoglobin 9.4 g/dL Hematocrit 27.6 % Mean Corpuscular Volume 90 fL Mean Corpuscular Hemoglobin 31 pg Mean Corpuscular Hemoglobin Concent 34 g/dL Red Cell Distribution Width 14.9 % Platelet Count 216 x10^3/uL Neutrophils (%) (Auto) 66 % Lymphocytes (%) (Auto) 16 % Monocytes (%) (Auto) 10 % Eosinophils (%) (Auto) 8 % Basophils (%) (Auto) 1 % Neutrophils # (Auto) 4.7 x10^3uL Lymphocytes # (Auto) 1.1 x10^3/uL Monocytes # (Auto) 0.7 x10^3/uL Eosinophils # (Auto) 0.6 x10^3/uL Basophils # (Auto) 0.0 x10^3/uL Sodium Level 142 mmol/L Potassium Level 3.7 mmol/L Chloride Level 107 mmol/L Carbon Dioxide Level 29 mmol/L Anion Gap 6 Blood Urea Nitrogen 13 mg/dL Creatinine 1.9 mg/dL Estimated GFR (Cockcroft-Gault) 34.8 Glucose Level 112 mg/dL Calcium Level 7.9 mg/dL Phosphorus Level 2.9 mg/dL Albumin 2.2 g/dL PE: GEN: NAD LUNGS: clear HEART: RRR ABD:soft, non-tender NEURO/PSYCH: A & O 3 OTHER: empty breakfast tray A/P: Decreased appetite - improved Gastric ulcers, H. pylori -on PPI -- Still doesn't want to advance diet but seems to be eating better, will review w / Dr. Delacruz. SUSAN MCNEIL Nov 22, 2016 10:13
[2016-11-22 11:00] VITALS: BP 128/61
--- NOTE | 2016-11-22 11:31 | PDOC ---
PROGRESS NOTES Chief Complaint Chief Complaint Chief complaint: Upper GI bleeding Assessment and plan Upper GI bleeding: status post 3 units of PRBC hemoglobin improved, status post EGD diagnosed with gastric ulcers Proximal A. fib A. fib, Acute kidney injury with chronic kidney disease: Encephalopathy acute: Resolved Acute blood loss anemia due to upper GI bleeding Hypertension not controlled hypomagnesemia plan: fu with renal, gi, card on metoprolol, increased amlodipine protonix bid gi soft diet back off to full liquid 11/20 path neg for malignancy, but + h pylori, as per GI no abx for it replete Mag PTOT, SW for snf hope dc tmr History of Present Illness History of Present Illness ON liquid diet Does not want rehab, wants to go home BUt wants SNU PT recs SNU NOmore GI bleeding HGb and VS stable PLAn: Await how he does with liquid diet SW aware of consult dc mercy either home with HH or SNU Told them they should talk about it as a family Vitals Vitals Vital Signs Date Time Temp Pulse Resp B/P (MAP) Pulse Ox O2 Delivery O2 Flow Rate FiO2 11/22/16 11:00 98.3 65 18 128/61 (83) 96 Room Air 98.3 11/21/16 19:30 10.0 Physical Exam General: Alert, Cooperative, No acute distress Heart: Regular rate (Sinus tach), Normal S1, Normal S2, Other (3/6 systolic murmur to LLS border) Lungs: Clear Abdomen: Soft, Other (Epigastric area + tenderness) Extremities: No cyanosis, Other (trace LE edema) Skin: No breakdown, No significant lesion Labs LABS Laboratory Tests Test 11/22/16 04:50 Sodium Level 142 mmol/L (136-145) Potassium Level 3.7 mmol/L (3.5-5.1) Chloride Level 107 mmol/L (98-107) Carbon Dioxide Level 29 mmol/L (21-32) Anion Gap 6 (6-14) Blood Urea Nitrogen 13 mg/dL (8-26) Creatinine 1.9 mg/dL (0.7-1.3) Estimated GFR (Cockcroft-Gault) 34.8 Glucose Level 112 mg/dL (70-99) Calcium Level 7.9 mg/dL (8.5-10.1) Phosphorus Level 2.9 mg/dL (2.6-4.7) Albumin 2.2 g/dL (3.4-5.0) Review of Systems Review of Systems denies 14 pt Assessment and Plan Assessmemt and Plan Problems Medical Problems: (1) Anemia Status: Acute (2) GI bleed Status: Acute (3) Metabolic encephalopathy Status: Acute Problems: Comment Review of Relevant I have reviewed the following items selin (where applicable) has been applied. Labs Laboratory Tests Test 11/21/16 03:15 11/21/16 11:00 11/22/16 04:50 Sodium Level 138 mmol/L (136-145) 142 mmol/L (136-145) Potassium Level 5.0 mmol/L (3.5-5.1) 3.7 mmol/L (3.5-5.1) Chloride Level 106 mmol/L (98-107) 107 mmol/L (98-107) Carbon Dioxide Level 23 mmol/L (21-32) 29 mmol/L (21-32) Anion Gap 9 (6-14) 6 (6-14) Blood Urea Nitrogen 14 mg/dL (8-26) 13 mg/dL (8-26) Creatinine 1.8 mg/dL (0.7-1.3) 1.9 mg/dL (0.7-1.3) Estimated GFR (Cockcroft-Gault) 37.1 34.8 Glucose Level 121 mg/dL (70-99) 112 mg/dL (70-99) Calcium Level 8.0 mg/dL (8.5-10.1) 7.9 mg/dL (8.5-10.1) Phosphorus Level 3.1 mg/dL (2.6-4.7) 2.9 mg/dL (2.6-4.7) Magnesium Level 1.9 mg/dL (1.8-2.4) Albumin 2.2 g/dL (3.4-5.0) 2.2 g/dL (3.4-5.0) White Blood Count 7.1 x10^3/uL (4.0-11.0) Red Blood Count 3.06 x10^6/uL (4.30-5.70) Hemoglobin 9.4 g/dL (13.0-17.5) Hematocrit 27.6 % (39.0-53.0) Mean Corpuscular Volume 90 fL (79-100) Mean Corpuscular Hemoglobin 31 pg (25-35) Mean Corpuscular Hemoglobin Concent 34 g/dL (31-37) Red Cell Distribution Width 14.9 % (11.5-14.5) Platelet Count 216 x10^3/uL (140-400) Neutrophils (%) (Auto) 66 % (31-73) Lymphocytes (%) (Auto) 16 % (24-48) Monocytes (%) (Auto) 10 % (0-9) Eosinophils (%) (Auto) 8 % (0-3) Basophils (%) (Auto) 1 % (0-3) Neutrophils # (Auto) 4.7 x10^3uL (1.8-7.7) Lymphocytes # (Auto) 1.1 x10^3/uL (1.0-4.8) Monocytes # (Auto) 0.7 x10^3/uL (0.0-1.1) Eosinophils # (Auto) 0.6 x10^3/uL (0.0-0.7) Basophils # (Auto) 0.0 x10^3/uL (0.0-0.2) Laboratory Tests Test 11/22/16 04:50 Sodium Level 142 mmol/L (136-145) Potassium Level 3.7 mmol/L (3.5-5.1) Chloride Level 107 mmol/L (98-107) Carbon Dioxide Level 29 mmol/L (21-32) Anion Gap 6 (6-14) Blood Urea Nitrogen 13 mg/dL (8-26) Creatinine 1.9 mg/dL (0.7-1.3) Estimated GFR (Cockcroft-Gault) 34.8 Glucose Level 112 mg/dL (70-99) Calcium Level 7.9 mg/dL (8.5-10.1) Phosphorus Level 2.9 mg/dL (2.6-4.7) Albumin 2.2 g/dL (3.4-5.0) Microbiology 11/17/16 Blood Culture - Preliminary, Resulted NO GROWTH AFTER 4 DAYS 11/15/16 Urine Culture - Final, Complete 11/15/16 Urine Culture Result 1 (LATRICIA) - Final, Complete Medications Current Medications Sodium Chloride 1,000 ml @ 1,000 mls/hr 1X ONCE IV Last administered on t 14:08; Start 11/15/16 at 14:00; Stop 11/15/16 at 14:59; Status DC Pantoprazole Sodium 80 mg/ Sodium Chloride 100 ml @ 10 mls/hr Q10H IV Last administered on 11/16/16 05:20; Start 11/15/16 at 16:00; Stop 11/16/16 at 14:13 ; Status DC Pantoprazole Sodium (Protonix Vial) 80 mg 1X ONCE IVP Last administered on 15:02; Start 11/15/16 at 15:30; Stop 11/15/16 at 15:31; Status DC Sodium Chloride 1,000 ml @ 100 mls/hr Q10H IV Last administered on 11/18/16 01:07; Start 11/15/16 at 16:15; Stop 11/18/16 at 07:50; Status DC Ceftriaxone Sodium 1 gm/ Sodium Chloride 50 ml @ 100 mls/hr Q24H IV Last administered on 11/18/16 21:48; Start 11/15/16 at 21:00; Stop 11/19/16 at 09:27 ; Status DC Calcium Gluconate (Calcium Gluconate) 1,000 mg 1X ONCE IVP Last administered on 11/16/16 19:01; Start 11/16/16 at 09:30; Stop 11/16/16 at 09:36; Status DC Magnesium Sulfate/ Dextrose 50 ml @ 25 mls/hr PRN DAILY PRN IV for Mag < 1.7 on am labs; Start 11/16/16 at 11:00 Sodium Chloride 1,000 ml @ 125 mls/hr Q8H IV Last administered on 11/17/16 03 :00; Start 11/16/16 at 11:00; Stop 11/17/16 at 05:50; Status DC Propofol 20 ml @ As Directed STK-MED ONCE IV ; Start 11/16/16 at 13:41; Stop at 13:54; Status DC Lidocaine HCl (Lidocaine Pf 2% Vial) 5 ml STK-MED ONCE .ROUTE ; Start 11/16/16 at 13:41; Stop 11/16/16 at 13:54; Status DC Pantoprazole Sodium (Protonix) 40 mg BIDAC PO Last administered on 11/22/16 06 :46; Start 11/16/16 at 16:30 Hydralazine HCl (Apresoline) 10 mg PRN Q4HRS PRN IVP ELEVATED BP, SEE COMMENTS Last administered on 11/19/16 05:54; Start 11/16/16 at 18:45 Insulin Aspart (NovoLOG) 0-5 UNITS TIDWMEALS SQ ; Start 11/17/16 at 08:00; Stop 11/18/16 at 11:16; Status DC Dextrose (Dextrose 50%-Water Syringe) 12.5 gm PRN Q15MIN PRN IV SEE COMMENTS; Start 11/16/16 at 18:45 Calcium Gluconate (Calcium Gluconate) 1,000 mg STK-MED ONCE .ROUTE ; Start 11/16 at 18:53; Stop 11/16/16 at 18:54; Status DC Magnesium Sulfate/ Dextrose 50 ml @ 25 mls/hr 1X ONCE IV ; Start 11/17/16 at 09 :00; Stop 11/17/16 at 09:00; Status DC Magnesium Sulfate/ Dextrose 100 ml @ 100 mls/hr 1X ONCE IV Last administered on 11/17/16 09:04; Start 11/17/16 at 09:00; Stop 11/17/16 at 09:59; Status DC Metoprolol Tartrate (Lopressor) 5 mg PRN Q6HRS PRN IVP ELEVATED BP, SEE COMMENTS Last administered on 11/17/16 11:46; Start 11/17/16 at 11:15 Metoprolol Tartrate (Lopressor) 12.5 mg BID PO Last administered on 11/22/16 08:43; Start 11/17/16 at 21:00 Amlodipine Besylate (Norvasc) 5 mg DAILY PO Last administered on 11/19/16 08: 00; Start 11/18/16 at 09:00; Stop 11/19/16 at 11:08; Status DC Sodium Bicarbonate 75 meq/Potassium Acetate 20 meq/ Sodium Chloride 1,085 ml @ 100 mls/hr [id number] PRN IV .; Start 11/18/16 at 08:00; Stop 11/18/16 at 19:00; Status Cancel Sodium Bicarbonate 75 meq/Potassium Acetate 20 meq/ Sodium Chloride 1,085 ml @ 100 mls/hr [id number] IV ; Start 11/18/16 at 08:45; Stop 11/18/16 at 08:45; Status DC Sodium Bicarbonate 75 meq/Potassium Acetate 20 meq/ Sodium Chloride 1,085 ml @ 100 mls/hr [id number] IV Last administered on 11/18/16 09:08; Start 11/18/16 at 09:30; Stop 11/18/16 at 10:09; Status DC Hydralazine HCl (Apresoline) 25 mg BID PO Last administered on 11/21/16 22:18 ; Start 11/18/16 at 21:00 Sodium Bicarbonate (Sodium Bicarbonate) 1,300 mg TID PO Last administered on 08:42; Start 11/18/16 at 14:00 Magnesium Sulfate/ Dextrose 50 ml @ 25 mls/hr 1X ONCE IV Last administered on 11/19/16 08:30; Start 11/19/16 at 08:30; Stop 11/19/16 at 10:29; Status DC Ondansetron HCl (Zofran) 4 mg PRN Q6HRS PRN IV NAUSEA/VOMITING Last administered on 11/19/16 10:22; Start 11/19/16 at 10:15; Stop 11/19/16 at 16:48 ; Status DC Sodium Chloride 1,000 ml @ 75 mls/hr [id number] IV Last administered on 11:15; Start 11/19/16 at 11:15; Stop 11/20/16 at 11:39; Status DC Amlodipine Besylate (Norvasc) 10 mg DAILY PO Last administered on 11/21/16 08: 46; Start 11/20/16 at 09:00 Amlodipine Besylate (Norvasc) 5 mg 1X ONCE PO Last administered on 11/19/16 13:07; Start 11/19/16 at 11:30; Stop 11/19/16 at 11:31; Status DC Acetaminophen (Tylenol) 650 mg PRN Q6HRS PRN PO FEVER; Start 11/19/16 at 13:00 Ondansetron HCl (Zofran) 4 mg PRN Q6HRS PRN IV NAUSEA/VOMITING; Start 11/19/16 at 13:00 Morphine Sulfate 2 mg PRN Q2HR PRN IV PAIN; Start 11/19/16 at 13:00 Tramadol HCl (Ultram) 50 mg PRN Q6HRS PRN PO PAIN; Start 11/19/16 at 13:00 Hydralazine HCl (Apresoline) 10 mg PRN Q4HRS PRN IVP ELEVATED BP, SEE COMMENTS ; Start 11/19/16 at 13:00; Stop 11/19/16 at 16:48; Status DC Docusate Sodium (Colace) 100 mg PRN DAILY PRN PO CONSTIPATION; Start 11/19/16 at 13:00 Furosemide (Lasix) 40 mg 1X ONCE IVP Last administered on 11/20/16t 12:17; Start 11/20/16 at 12:00; Stop 11/20/16 at 12:01; Status DC Active Scripts Active Reported Levemir (Insulin Detemir) 100 Unit/1 Ml Vial 10 Unit SQ QHS Allopurinol 100 Mg Tablet 100 Mg PO DAILY Bystolic (Nebivolol) 5 Mg Tablet 5 Mg PO BID Vitals/I & O Vital Sign - Last 24 Hours 11/21/16 11/21/16 11/21/16 11/21/16 14:48 19:05 19:30 22:18 Temp 97.7 98.7 97.7 98.7 Pulse 71 73 73 Resp 18 18 B/P (MAP) 127/62 (83) 152/63 (92) 152/63 Pulse Ox 94 96 O2 Delivery Room Air Room Air Room Air O2 Flow Rate 10.0 11/21/16 11/21/16 11/22/16 11/22/16 22:18 23:10 03:30 07:00 Temp 98.8 97.8 99.3 98.8 97.8 99.3 Pulse 73 68 82 73 Resp 18 16 20 B/P (MAP) 152/63 115/54 (74) 142/62 (88) 132/65 (87) Pulse Ox 96 97 90 O2 Delivery Room Air Room Air Room Air 11/22/16 11/22/16 11/22/16 07:39 08:43 11:00 Temp 98.3 98.3 Pulse 87 65 Resp 18 B/P (MAP) 120/58 128/61 (83) Pulse Ox 96 O2 Delivery Room Air Room Air Intake and Output 11/21/16 11/21/16 11/22/16 15:00 23:00 07:00 Intake Total 300 ml 480 ml 200 ml Output Total 0 ml Balance 300 ml 480 ml 200 ml BLANCA PIZARRO MD Nov 22, 2016 11:31
--- NOTE | 2016-11-22 12:56 | PDOC ---
Renal-Progress Notes Subjective Notes Notes NONE History of Present Illness Hx of present illness STABLE Vitals Vitals Vital Signs Date Time Temp Pulse Resp B/P (MAP) Pulse Ox O2 Delivery O2 Flow Rate FiO2 11/22/16 11:00 98.3 65 18 128/61 (83) 96 Room Air 98.3 11/21/16 19:30 10.0 Weight Weight [ ] I.O. Intake and Output Intake and Output 11/22/16 07:00 Intake Total 980 ml Output Total 0 ml Balance 980 ml Intake Oral 980 ml Output Urine Total 0 ml # Voids 2 # Bowel Movements 1 Labs Labs Laboratory Tests Test 11/22/16 04:50 Sodium Level 142 mmol/L (136-145) Potassium Level 3.7 mmol/L (3.5-5.1) Chloride Level 107 mmol/L (98-107) Carbon Dioxide Level 29 mmol/L (21-32) Anion Gap 6 (6-14) Blood Urea Nitrogen 13 mg/dL (8-26) Creatinine 1.9 mg/dL (0.7-1.3) Estimated GFR (Cockcroft-Gault) 34.8 Glucose Level 112 mg/dL (70-99) Calcium Level 7.9 mg/dL (8.5-10.1) Phosphorus Level 2.9 mg/dL (2.6-4.7) Albumin 2.2 g/dL (3.4-5.0) Micro Micro Microbiology 11/17/16 Blood Culture - Final, Complete NO GROWTH AFTER 5 DAYS 11/15/16 Urine Culture - Final, Complete 11/15/16 Urine Culture Result 1 (LATRICIA) - Final, Complete Review of Systems Constitutional: yes: no symptom reported Physical Exam General Appearance: no apparent distress Skin: warm Respiratory: decreased breath sounds Heart: S1S2, RRR Abdomen: soft, bowel sounds present Genitourinary: bladder flat Neurology: alert, oriented Assessment Assessment IMP SHANTANU-RESOLVED PROB CKD STAGE 3-CR AT ABOUT BASELINE OF 1.9 ANEMIA GI BLEED DUE TO GASTRIC ULCERS-H PYLORI MET ACIDOSIS-BETTER HTN-STILL ELEVATED-BETTER LOW MAG-CORRECTED PLAN ENC PO TOLERATED MAY NEED SOME DIURETICS SOON THERAPY LABS IN AM YVONNE HARE MD Nov 22, 2016 12:56
[2016-11-22 15:00] VITALS: BP 159/72
[2016-11-22 19:10] VITALS: BP 149/67
[2016-11-22 23:05] VITALS: BP 165/77
[2016-11-23 03:05] VITALS: BP 141/63
[2016-11-23 07:15] VITALS: BP 149/70
[2016-11-23] MEDS: SODIUM BICARBONATE 650 MG TABLET. PO SCH (08:06)
[2016-11-23] MEDS: PANTOPRAZOLE 40 MG TABLET.DR. PO SCH (08:06)
[2016-11-23] MEDS: hydrALAZINE 25 MG TABLET PO SCH (08:07)
[2016-11-23] MEDS: METOPROLOL TART IMMED RELEASE 25 MG TABLET. PO SCH (08:08)
[2016-11-23] MEDS: amLODIPine BESYLATE 10 MG TABLET PO SCH (08:09)
[2016-11-23 08:19] LABS: ALBUMIN 2.4 g/dL (3.4-5.0); CALCIUM 8.5 mg/dL (8.5-10.1); CREATININE 1.8 mg/dL (0.7-1.3); GFR 37.1; PHOSPHORUS 3.4 mg/dL (2.6-4.7); POTASSIUM 3.7 mmol/L (3.5-5.1)
--- NOTE | 2016-11-23 09:37 | PDOC ---
Renal-Progress Notes Subjective Notes Notes NONE History of Present Illness Hx of present illness NO CHANGE Vitals Vitals Vital Signs Date Time Temp Pulse Resp B/P (MAP) Pulse Ox O2 Delivery O2 Flow Rate FiO2 11/23/16 08:09 82 149/70 11/23/16 07:25 Room Air 11/23/16 07:15 98.7 18 95 98.7 11/22/16 19:25 10.0 Weight Weight [ ] I.O. Intake and Output Intake and Output 11/23/16 07:00 Intake Total 1250 ml Output Total 350 ml Balance 900 ml Intake Oral 1250 ml Output Urine Total 350 ml # Bowel Movements 1 Labs Labs Laboratory Tests Test 11/23/16 07:50 Sodium Level 139 mmol/L (136-145) Potassium Level 3.7 mmol/L (3.5-5.1) Chloride Level 103 mmol/L (98-107) Carbon Dioxide Level 28 mmol/L (21-32) Anion Gap 8 (6-14) Blood Urea Nitrogen 10 mg/dL (8-26) Creatinine 1.8 mg/dL (0.7-1.3) Estimated GFR (Cockcroft-Gault) 37.1 Glucose Level 110 mg/dL (70-99) Calcium Level 8.5 mg/dL (8.5-10.1) Phosphorus Level 3.4 mg/dL (2.6-4.7) Albumin 2.4 g/dL (3.4-5.0) Micro Micro Microbiology 11/17/16 Blood Culture - Final, Complete NO GROWTH AFTER 5 DAYS 11/15/16 Urine Culture - Final, Complete 11/15/16 Urine Culture Result 1 (LATRICIA) - Final, Complete Review of Systems Constitutional: yes: no symptom reported Physical Exam General Appearance: no apparent distress Skin: warm Respiratory: decreased breath sounds Heart: S1S2, RRR Abdomen: soft, bowel sounds present Genitourinary: bladder flat Neurology: alert, oriented Assessment Assessment IMP SHANTANU-RESOLVED PROB CKD STAGE 3-CR AT ABOUT BASELINE OF 1.8 ANEMIA GI BLEED DUE TO GASTRIC ULCERS-H PYLORI MET ACIDOSIS-RESOLVED HTN-BETTER LOW MAG-CORRECTED PLAN ENC PO TOLERATED THERAPY WILL FOLLOW PRN PP TRANSFER PENDING YVONNE HARE MD Nov 23, 2016 09:37
[2016-11-23] MEDS ORDERED: METO25TA4 PO (09:45)
[2016-11-23] MEDS ORDERED: HYDR-2868 PO (09:45)
[2016-11-23] MEDS ORDERED: PANT40TA3 PO (09:45)
[2016-11-23] MEDS ORDERED: SODI650T PO (09:45)
[2016-11-23] MEDS ORDERED: AMLO10TA4 PO (09:45)
[2016-11-23 11:12] VITALS: BP 116/61
--- NOTE | 2016-11-23 11:21 | PDOC ---
Subjective: Subjective: Still weakness in legs. Eating better. Going home today. Objective: Objective: Per RN - home w/ HH. Vital Signs: Vital Signs Date Time Temp Pulse Resp B/P (MAP) Pulse Ox O2 Delivery O2 Flow Rate FiO2 11/23/16 11:12 98.1 74 16 116/61 (79) 96 Room Air 98.1 11/22/16 19:25 10.0 Labs: Laboratory Tests Test 11/23/16 07:50 Sodium Level 139 mmol/L Potassium Level 3.7 mmol/L Chloride Level 103 mmol/L Carbon Dioxide Level 28 mmol/L Anion Gap 8 Blood Urea Nitrogen 10 mg/dL Creatinine 1.8 mg/dL Estimated GFR (Cockcroft-Gault) 37.1 Glucose Level 110 mg/dL Calcium Level 8.5 mg/dL Phosphorus Level 3.4 mg/dL Albumin 2.4 g/dL PE: GEN: NAD, completely under blanket ABD: S/ND/NT NEURO/PSYCH: A & O 3 A/P: Decreased appetite - improved Gastric ulcers, H. pylori -on PPI Weakness -- Note DC plans - okay per GI, continue chronic PPI w/ plans for follow-up EGD in 2-3 months. SUSAN MCNEIL Nov 23, 2016 11:21
--- NOTE | 2016-11-23 11:27 | PDOC3 ---
Discharge Summary Visit Information Date of Admission: Nov 15, 2016 Date of Discharge: Nov 23, 2016 Admitting Diagnosis Comment: Assessment and plan Upper GI bleeding: status post 3 units of PRBC hemoglobin improved, status post EGD diagnosed with gastric ulcers Proximal A. fib A. fib, Acute kidney injury with chronic kidney disease: Encephalopathy acute: Resolved Acute blood loss anemia due to upper GI bleeding Hypertension not controlled hypomagnesemia Final Diagnosis Problems Medical Problems: (1) Anemia Status: Acute (2) GI bleed Status: Acute (3) Metabolic encephalopathy Status: Acute Brief Hospital Course Allergies Allergies Coded Allergies Type Severity Reaction Last Updated Verified No Known Drug Allergies 09/30/14 No Vital Signs Vital Signs Date Time Temp Pulse Resp B/P (MAP) Pulse Ox O2 Delivery O2 Flow Rate FiO2 11/23/16 11:12 98.1 74 16 116/61 (79) 96 Room Air 98.1 11/22/16 19:25 10.0 Lab Results Laboratory Tests Test 11/22/16 04:50 11/23/16 07:50 Sodium Level 142 mmol/L (136-145) 139 mmol/L (136-145) Potassium Level 3.7 mmol/L (3.5-5.1) 3.7 mmol/L (3.5-5.1) Chloride Level 107 mmol/L (98-107) 103 mmol/L (98-107) Carbon Dioxide Level 29 mmol/L (21-32) 28 mmol/L (21-32) Anion Gap 6 (6-14) 8 (6-14) Blood Urea Nitrogen 13 mg/dL (8-26) 10 mg/dL (8-26) Creatinine 1.9 mg/dL (0.7-1.3) 1.8 mg/dL (0.7-1.3) Estimated GFR (Cockcroft-Gault) 34.8 37.1 Glucose Level 112 mg/dL (70-99) 110 mg/dL (70-99) Calcium Level 7.9 mg/dL (8.5-10.1) 8.5 mg/dL (8.5-10.1) Phosphorus Level 2.9 mg/dL (2.6-4.7) 3.4 mg/dL (2.6-4.7) Albumin 2.2 g/dL (3.4-5.0) 2.4 g/dL (3.4-5.0) Laboratory Tests Test 11/23/16 07:50 Sodium Level 139 mmol/L (136-145) Potassium Level 3.7 mmol/L (3.5-5.1) Chloride Level 103 mmol/L (98-107) Carbon Dioxide Level 28 mmol/L (21-32) Anion Gap 8 (6-14) Blood Urea Nitrogen 10 mg/dL (8-26) Creatinine 1.8 mg/dL (0.7-1.3) Estimated GFR (Cockcroft-Gault) 37.1 Glucose Level 110 mg/dL (70-99) Calcium Level 8.5 mg/dL (8.5-10.1) Phosphorus Level 3.4 mg/dL (2.6-4.7) Albumin 2.4 g/dL (3.4-5.0) Brief Hospital Course Mr. Becerra is a 75 old [sex] who presented with significant anemia needing total 3 pRBC transfusion, EGD done found to have gastric ulcers, Being dcd on PPI PO BID. NO NSAIDs, MAR done, Course remarkable for some HTN uncontrolled, SHANTANU that has resolved. NEeds SNU but refuses,agreeable to HH Dw family, pt, RN, SW Dc time 34 mins, arranging dc,. paperwork etc COnsults; GI [facility]ICO[facility] paperowrk also filled out Discharge Information Condition at Discharge: Improved, Stable Disposition/Orders: D/C to Home w/ HH Scheduled Allopurinol (Allopurinol), 100 MG PO DAILY, (Reported) Insulin Detemir (Levemir), 10 UNIT SQ QHS, (Reported) Nebivolol Hcl (Bystolic), 5 MG PO BID, (Reported) BLANCA PIZARRO MD Nov 23, 2016 11:27
== END 2016-11-23 12:30 | disposition home health service (06) | DRG 377 ==
LOC: ER 13:23 → 2 NORTH 16:10 → 1 WEST ICU 16:46 → 2 SOUTH 11-20 05:40
PROVIDERS: ADMIT Internal Medicine; ATTEND Internal Medicine
PROC: 30233N1 Transfusion of Nonautologous Red Blood Cells into Peripheral Vein, Percutaneous Approach (ICD-10-PCS; principal; 2016-11-15)
PROC: 0DJ08ZZ Inspection of Upper Intestinal Tract, Via Natural or Artificial Opening Endoscopic (ICD-10-PCS; 2016-11-15)
DX: K25.4 Chronic or unspecified gastric ulcer with hemorrhage (principal); G93.41 Metabolic encephalopathy; N17.9 Acute kidney failure, unspecified; D62 Acute posthemorrhagic anemia; E87.2 Acidosis; N18.4 Chronic kidney disease, stage 4 (severe); I69.351 Hemiplegia and hemiparesis following cerebral infarction affecting right dominant side; E78.00 Pure hypercholesterolemia, unspecified; E78.5 Hyperlipidemia, unspecified; E83.42 Hypomagnesemia; E87.5 Hyperkalemia; I12.9 Hypertensive chronic kidney disease with stage 1 through stage 4 chronic kidney disease, or unspecified chronic kidney disease; I48.0 Paroxysmal atrial fibrillation; I45.10 Unspecified right bundle-branch block; I71.4 Abdominal aortic aneurysm, without rupture; M10.9 Gout, unspecified; N28.1 Cyst of kidney, acquired; R13.10 Dysphagia, unspecified; Z79.4 Long term (current) use of insulin; Z86.79 Personal history of other diseases of the circulatory system; Z87.11 Personal history of peptic ulcer disease
CPT/HCPCS: 36415; 51701; 70450; 76770; 80047; 80048; 80053; 80069; 81001; 82962; 83605; 83735; 84100; 84300; 84550; 85027; 85610; 86850; 86900; 86901; 86920; 87040; 87086; 87641; 88305; 88342; 93005; 93306; 96361; 96374; C1887; C9113; J0360; J0610; J0696; J1940; J2001; J2405; J2704; J3475; J3490; J7030; J7060; P9016; 97110; 97116; 97530; 97535; 99291-25